=== PATIENT | female | born 1935 | race Caucasian/White ===

== ENCOUNTER → 2017-05-17 | Outpatient (CLI) | payer MEDICARE, OTHER ==
[~2017-05-17] MED LIST: ASP81CT; CHOL40002 PO; CLON0.5T3 PO; CLON1TAB3 PO; CYCL5TAB PO; NAPR-243 PO; NIAC500T6; POTA20TA15; QUIN324C; TRIA1CAP4; TRIA1CAP4 PO; TRM50T PO; TRZ50T
--- NOTE | 2017-05-18 10:36 | Diagnostic Imaging Report ---
INDICATION: Digital mammogram bilateral screening. COMPARISON: This study was compared to the prior exams of 05/03/2016, 04/23/2015, and 04/23/2014. TECHNIQUE: Screening digital mammography was performed bilaterally with a Computer Aided Detection (CAD) system. PERSONAL HISTORY: At this time, there are no current complaints. FINDINGS: There are scattered fibroglandular densities in both breasts which could obscure a lesion. The small area of increased density with the associated macrocalcification in the 12 o'clock position of the right breast seen on the previous study is again visualized and essentially no different. This finding does seem stable when compared to the 2014 exam. There is also an area of architectural distortion in the medial retroareolar region of the left breast. This finding is unchanged when compared to the prior exam as well. There is no primary or secondary sign of malignancy noted. IMPRESSION: There is no evidence for malignancy. ACR BI-RADS Category 1: Negative. Result letter will be mailed to the patient. Note: At least 10% of breast cancer is not imaged by mammography. Dictated by: Dictated on workstation # [id number]
== END ==
LOC: RAD 09:57
PROVIDERS: ATTEND Nurse Practitioner Family
DX: Z12.31 Encounter for screening mammogram for malignant neoplasm of breast (principal)
CPT/HCPCS: 77067

== ENCOUNTER → 2018-02-23 | Outpatient (CLI) | payer MEDICARE, OTHER ==
--- NOTE | 2018-02-23 11:21 | Diagnostic Imaging Report ---
PROCEDURE: CT head without contrast. TECHNIQUE: Multiple contiguous axial images were obtained through the brain without the use of intravenous contrast. INDICATION: Headache and lightheadedness. COMPARISON: No prior studies are available for comparison. FINDINGS: The ventricles and sulci are consistent with the patient's age. There is moderate periventricular hypodensity noted consistent with senescent change. No sulcal effacement is identified. There is no midline shift. No acute intra-axial or extra-axial hemorrhage is detected. Cisterns are patent. The visualized paranasal sinuses are clear. IMPRESSION: Senescent changes. No acute intracranial process is detected. Dictated by: Dictated on workstation # [id number]
== END ==
LOC: RAD 10:48
PROVIDERS: ATTEND Nurse Practitioner Family
DX: R54 Age-related physical debility (principal); R51 Headache; R42 Dizziness and giddiness
CPT/HCPCS: 70450

== ENCOUNTER → 2018-03-26 | Outpatient (CLI) | payer MEDICARE, OTHER ==
[~2018-03-26] MED LIST changes: +GADOBUTROL 7.5 MMOL/7.5 ML (GADAVIST) VIAL IV ONE
--- NOTE | 2018-03-26 09:03 | Diagnostic Imaging Report ---
PROCEDURE: MR imaging of the brain with and without contrast. TECHNIQUE: Multiplanar, multisequence MR imaging of the brain was performed with and without contrast. INDICATION: Confusion and headaches. Patient has history of lung carcinoma. COMPARISON: No prior MRI brain study is available for comparison. FINDINGS: The ventricles and sulci are appropriate for the patient's age. There is moderate periventricular and subcortical white matter signal abnormalities noted consistent with chronic microvascular ischemia and senescent change. No diffusion restriction is identified to suggest acute ischemia. The normal expected flow-voids within the carotid siphons are seen. No acute intra-axial or extra-axial hemorrhage is identified. The corpus callosum is unremarkable. The sella and parasellar structures are unremarkable. No abnormal enhancement is seen following contrast administration. IMPRESSION: Chronic and senescent changes. No acute intracranial process is identified. No enhancing mass or evidence of intracranial metastatic disease is detected. Dictated by: Dictated on workstation # [id number]
== END ==
LOC: RAD 07:29
PROVIDERS: ATTEND Nurse Practitioner Family
DX: R41.0 Disorientation, unspecified (principal); R51 Headache; R53.83 Other fatigue; Z85.118 Personal history of other malignant neoplasm of bronchus and lung
CPT/HCPCS: 70553

== ENCOUNTER → 2018-05-24 | Outpatient (CLI) | payer MEDICARE, OTHER ==
[~2018-05-24] MED LIST changes: -GADOBUTROL 7.5 MMOL/7.5 ML (GADAVIST) VIAL IV ONE
--- NOTE | 2018-05-24 19:32 | Diagnostic Imaging Report ---
INDICATION: Routine screening. COMPARISON: Comparison is made with prior studies from 05/17/2017 and 05/03/2016. TECHNIQUE: 2D and 3D bilateral screening mammography was performed with computer-aided detection (CAD) system. FINDINGS: Scattered fibroglandular densities are identified bilaterally. Numerous benign-appearing parenchymal and vascular calcifications are identified bilaterally. Previously noted nodular density with calcification in the right breast appears fairly stable. Area of architectural distortion in the retroareolar slightly lateral left breast appears stable. No new mass or malignant appearing microcalcifications are seen. Axillae are unremarkable. IMPRESSION: No mammographic features suspicious for malignancy are identified. ACR BI-RADS Category 2: Benign findings. Result letter will be mailed to the patient. Note: At least 10% of breast cancer is not imaged by mammography. Dictated by: Dictated on workstation # [id number]
== END ==
LOC: RAD 10:42
PROVIDERS: ATTEND Nurse Practitioner Family
DX: Z12.31 Encounter for screening mammogram for malignant neoplasm of breast (principal)
CPT/HCPCS: 77067

== ENCOUNTER → 2019-06-19 | Outpatient (CLI) | payer MEDICARE, OTHER ==
--- NOTE | 2019-06-19 12:53 | Diagnostic Imaging Report ---
INDICATION: Routine screening. COMPARISON: 05/24/2018 and 05/17/2017. TECHNIQUE: 2D and 3D bilateral screening mammography was performed with CAD. FINDINGS: Scattered fibroglandular densities are identified bilaterally. The overall breast parenchymal pattern appears stable. Bilateral benign parenchymal and vascular calcifications are stable. No new mass or malignant appearing microcalcifications are seen. The axillae are unremarkable. IMPRESSION: No mammographic features suspicious for malignancy are identified. ACR BI-RADS Category 2: Benign findings. Result letter will be mailed to the patient. Note: At least 10% of breast cancer is not imaged by mammography. Dictated by: Dictated on workstation # [id number]
== END ==
LOC: RAD 08:57
PROVIDERS: ATTEND Nurse Practitioner Family
DX: Z12.31 Encounter for screening mammogram for malignant neoplasm of breast (principal)
CPT/HCPCS: 77067

== ENCOUNTER 2019-11-08 14:04 | Emergency (ER) | payer MEDICARE, OTHER ==
[~2019-11-08] VITALS: Ht 167 cm; Wt 68.0 kg
[~2019-11-08 14:04] MED LIST changes: +ASPI-999 PO; +CHOL20003 PO; +CLON1TAB13 PO; +LEVO500T2 PO; +SULF-222 PO; +VITAMIN PACK PO
--- NOTE | 2019-11-08 14:21 | ED Lower Extremity ---
General Chief Complaint: Lower Extremity Stated Complaint: L LEG PAIN Nursing Triage Note: has LLE pain on the outside and front of her L knee Nursing Sepsis Screen: No Definite Risk Source: patient Exam Limitations: no limitations History of Present Illness Date Seen by Provider: Nov 08, 2019 Time Seen by Provider: 14:19 Initial Comments ER with left anterolateral knee pain. She had a bunch of tests done by her onc ologist yesterday at [place], did a lot of walking. Today she has pain to the left anterior/lateral knee, specifically with twisting movements. She can fully extend and flex the knee without pain. Onset: just prior to arrival Severity: moderate Pain/Injury Location: left knee Method of Injury: unknown Modifying Factors: Worse With Movement Allergies and Home Medications Allergies Coded Allergies: Penicillins (Verified Allergy, Unknown, 07/10/19) Uncoded Allergies: NOVACAINE (Allergy, Mild, 09/07/09) Home Medications Cholecalciferol (Vitamin D3) 2,000 Unit Capsule, 4,000 UNIT PO DAILY, (Reported) Clonazepam 1 Mg Tablet, 0.5 MG PO HS PRN for RESTLESSNESS, (Reported) TAKES 1/2 (1MG) TABLET Levofloxacin 500 Mg Tablet, 500 MG PO DAILY Prescribed by: TERESA ALAMO on 07/11/19 0939 Triamterene/Hydrochlorothiazid 1 Each Capsule, 1 CAP PO DAILY, (Reported) [Vitamin Pack] , 1 PACKET PO DAILY, (Reported) Patient Home Medication List Home Medication List Reviewed: Yes Review of Systems Constitutional: see HPI EENTM: see HPI Respiratory: no symptoms reported Cardiovascular: no symptoms reported Genitourinary: no symptoms reported Musculoskeletal: see HPI Skin: no symptoms reported Psychiatric/Neurological: No Symptoms Reported Past Olqrbjy-Upmtgb-Yzlhub Hx Patient Social History Alcohol Use: Denies Use Recreational Drug Use: No 2nd Hand Smoke Exposure: No Recent Foreign Travel: No Contact w/Someone Who Travel: No Recent Infectious Disease Expo: No Recent Hopitalizations: No Immunizations Up To Date PED Vaccines UTD: No Date of Pneumonia Vaccine: Jul 12, 2011 Date of Influenza Vaccine: Aug 11, 2012 Seasonal Allergies Seasonal Allergies: No Past Medical History Surgeries: Yes Lobectomy Respiratory: Yes Currently Using CPAP: No Currently Using BIPAP: No Cardiac: No Hypertension Neurological: No [employer] History: Menopausal Genitourinary: No UTI-Chronic Gastrointestinal: No Musculoskeletal: Yes Osteoporosis Endocrine: No HEENT: No Loss of Vision: Denies Hearing Impairment: Denies Cancer: Yes Lung Did You Recieve Any Treatments: No What Type of Treatment Did You: Surgical Intervention Psychosocial: No Anxiety Integumentary: No Psoriasis Blood Disorders: No Family Medical History Cardiovascular disease 19 MOTHER Congenital disease 19 FATHER Hypertension Physical Exam Vital Signs Vital Signs - First Documented 11/08/19 14:07 Temp 36.7 Pulse 70 Resp 18 B/P (MAP) 160/85 (110) Capillary Refill : Less Than 3 Seconds Height, Weight, BMI Height: 5'6.00" Weight: 190lbs. oz. [id number]; 24.00 BMI Method:Stated General Appearance: WD/WN, no apparent distress HEENT: PERRL/EOMI, normal ENT inspection Neck: non-tender, full range of motion Respiratory: no respiratory distress, no accessory muscle use Hips: bilateral hip non-tender, bilateral hip normal inspection, bilateral hip normal range of motion Legs: bilateral leg non-tender, bilateral leg normal inspection, bilateral leg normal range of motion Knees: left knee pain, left knee soft tissue tenderness Ankles: bilateral ankle non-tender, bilateral ankle normal inspection, bilatera l ankle normal range of motion Feet: bilateral foot non-tender, bilateral foot normal inspection, bilateral foot normal range of motion Neurologic/Psychiatric: alert, normal mood/affect, oriented x 3 Skin: normal color, warm/dry Progress/Results/Core Measures Results/Orders My Orders Orders - NEENA HUMPHREYS APRN Knee, Left, 3 Views (11/08/19 14:18) Vital Signs/I&O 11/08/19 14:07 Temp 36.7 Pulse 70 Resp 18 B/P (MAP) 160/85 (110) Blood Pressure Mean: 110 Departure Impression Primary Impression: Injury of meniscus of left knee Qualified Codes: S83.8X2A - Sprain of other specified parts of left knee, initial encounter Disposition: 01 HOME, SELF-CARE Condition: Stable Departure-Patient Inst. Decision time for Depature: 14:21 Referrals: TERESA ALAMO MD (PCP/Family) Primary Care Physician Patient Instructions: Internal Derangement of the Knee (DC) Add. Discharge Instructions: 1. Return to ER for any concerns 2. Follow-up with your doctor next week 3. All discharge instructions reviewed with patient and/or family. Voiced understanding. NEENA HUMPHREYS APRN Nov 08, 2019 14:21
--- NOTE | 2019-11-08 14:53 | Diagnostic Imaging Report ---
CLINICAL INDICATION: Patient with knee pain. No known injury. EXAM: X-ray of the left knee, three views. COMPARISON: None. FINDINGS: There is no acute fracture or dislocation. There is a small knee effusion. There are minimal-sized spurs involving the medial and lateral compartments and small spurs involving the patellofemoral compartment. There is mild to moderately hypertrophic spurring involving the patella in the region of the quadriceps attachment. Vascular calcifications are seen posterior to the knee. IMPRESSION: 1: There are [id number] degenerative changes of the left knee. 2: Yedx-an-hmuutzne tricompartmental osteoarthritis. Dictated by: Dictated on workstation # [id number]
[2019-11-08 15:04] VITALS: BP 160/85
== END 2019-11-08 15:14 | disposition home or self-care (01) ==
LOC: EDUNIT# 14:04 → ER 14:05
DX: S89.92XA Unspecified injury of left lower leg, initial encounter (principal); F41.9 Anxiety disorder, unspecified; Z88.0 Allergy status to penicillin; Z88.8 Allergy status to other drugs, medicaments and biological substances; Z85.118 Personal history of other malignant neoplasm of bronchus and lung; Z82.49 Family history of ischemic heart disease and other diseases of the circulatory system; X50.0XXA Overexertion from strenuous movement or load, initial encounter
CPT/HCPCS: 73562

== ENCOUNTER 2020-04-20 22:06 | Inpatient (IN) | payer MEDICARE, OTHER ==
[~2020-04-20] VITALS: Ht 167.7 cm; Wt 77.7 kg
[~2020-04-20 22:06] MED LIST changes: +CEFD300C3 PO; +CHOL100045 PO; +CHOL4PAC PO; +CLON0.5T4 PO; +TURM500C4 PO
[2020-04-20] MEDS ORDERED: NS IV 1000 ML 1,000 ML ONE (22:25)
--- NOTE | 2020-04-20 22:32 | ED General ---
General Chief Complaint: General Problems/Pain Stated Complaint: WEAKNESS Nursing Triage Note: PT BROUGHT IN BY [facility] FROM HOME WITH COMPLINT OF CHILLS AND NOT FEELING WELL. PT WAS D/C YESTERDAY FROM [facility] Nursing Sepsis Screen: No Definite Risk Source of Information: Patient, EMS Exam Limitations: No Limitations (NETTIE MOREIRA STUDENT) History of Present Illness Date Seen by Provider: Apr 20, 2020 Time Seen by Provider: 22:15 Initial Comments Alyson Wong is a 85 year old female seen today due to chills and generalized weakness. She reports her symptoms began several hours ago. Reports she took her typical dose clonazepam before bedtime for restless legs. Denies taking bloodthinners. She reports having SOB, denies having a cough. She was recently released from [facility] 04/20 after being treated for cystitis, was discharged taking cefdinir. Her PCP is Dr. Lacy. Denies any dizziness, light headedness, syncope, falls, CP, palpitations, numbness or tingling, focal weakness.. Timing/Duration: 1-3 Hours Severity: Mild (NETTIE MOREIRA MED STUDENT) Initial Comments Patient is alert, cooperative and says she wants to go home and go back to sleep. EMS reports she is not diabetic and had a normal blood sugar. She was standing up in the bathroom with family when they arrive. Alert and oriented 4. Appropriate. She's had no complaints of pain or weakness for then either. Patient discharged home yesterday. Family noticed a rash on her leg so stopped taking her cefdinir. No mention of starting something new. (EVERARDO OLIVER) Allergies and Home Medications Allergies Coded Allergies: Penicillins (Verified Allergy, Unknown, 07/10/19) Uncoded Allergies: NOVACAINE (Allergy, Mild, 09/07/09) red meat (Allergy, Mild, Vomiting, 04/18/20) Home Medications Cefdinir 300 Mg Capsule, 300 MG PO BID Prescribed by: NEGIN GUAJARDO on 04/19/20 1031 Cholecalciferol (Vitamin D3) 25 Mcg Tablet, 25 MCG PO DAILY, (Reported) Cholestyramine/Aspartame 4 Gm Powd.pack, 4 GM PO DAILY PRN for DIARRHEA Prescribed by: NEGIN GUAJARDO on 04/19/20 1042 Clonazepam 0.5 Mg Tablet, 0.5 MG PO HS PRN for RESTLESSNESS, (Reported) Turmeric/Turmeric Root Extract 1 Each Capsule, 1 EACH PO DAILY, (Reported) [Vitamin Pack] , 1 PACKET PO DAILY, (Reported) Patient Home Medication List Home Medication List Reviewed: Yes (EVERARDO OLIVER) Review of Systems Review of Systems Constitutional: chills; No dizziness, No fever; weakness EENTM: No nose congestion, No throat pain Respiratory: No cough; short of breath Cardiovascular: No chest pain; edema; No palpitations, No syncope Gastrointestinal: No abdominal pain, No constipation, No diarrhea, No nausea, No vomiting Genitourinary: No dysuria; frequency (NETTIE MOREIRA) Psychiatric/Neurological: See HPI; Denies Anxiety, Denies Depressed (EVERARDO OLIVER) All Other Systems Reviewed Negative Unless Noted: Yes (EVERARDO OLIVER) Past Vuracuh-Vfbyte-Ayadnx Hx Patient Social History 2nd Hand Smoke Exposure: No Recent Foreign Travel: No Contact w/Someone Who Travel: No Recent Infectious Disease Expo: No Recent Hopitalizations: No (NETTIE MOREIRA) Alcohol Use: Denies Use Recreational Drug Use: No Smoking Status: Never a Smoker (EVERARDO OLIVER) Immunizations Up To Date PED Vaccines UTD: No Date of Pneumonia Vaccine: Jul 12, 2011 Date of Influenza Vaccine: Aug 11, 2012 (NETTIE MOREIRA) Seasonal Allergies Seasonal Allergies: No (NETTIE MOREIRA) Past Medical History Surgeries: Yes Lobectomy Respiratory: No Currently Using CPAP: No Currently Using BIPAP: No Cardiac: Yes Hypertension Neurological: No 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 Sexually Transmitted Disease: No HIV/AIDS: No Genitourinary: No UTI-Chronic Gastrointestinal: No Musculoskeletal: Yes Osteoporosis, Arthritis Endocrine: No HEENT: No Loss of Vision: Denies Hearing Impairment: Denies Cancer: Yes Lung Did You Recieve Any Treatments: No What Type of Treatment Did You: Surgical Intervention Psychosocial: Yes Anxiety Integumentary: No Psoriasis Blood Disorders: No (NETTIE MOREIRA) Family Medical History Cardiovascular disease 19 MOTHER Congenital disease 19 FATHER Heart Disease, Hypertension (NETTIE MOREIRA) Physical Exam Vital Signs Vital Signs - First Documented 04/20/20 22:10 Pulse 96 Resp 20 B/P (MAP) 113/68 (83) Pulse Ox 90 O2 Delivery Room Air Capillary Refill : Less Than 3 Seconds Height, Weight, BMI Height: 5'6.00" Weight: 190lbs. oz. [id number]; 27.00 BMI Method:Stated General Appearance: No Apparent Distress, Obese HEENT: PERRL/EOMI; No Scleral Icterus (L), No Scleral Icterus (R) Neck: Normal Inspection, Non Tender, Supple Respiratory: Lungs Clear, Normal Breath Sounds, No Accessory Muscle Use, No Respiratory Distress Cardiovascular: Regular Rate, Rhythm, No Gallop, No JVD, Normal Peripheral Pulses, Systolic Murmur Extremity: Pedal Edema (3+), Other (tenderness to palpation for tibial edema) Neurologic/Psychiatric: Alert, Oriented x3, Normal Mood/Affect; No EOM Palsy, No Facial Droop, No Sensory Deficit Skin: Normal Color, Warm/Dry (NETTIE MOREIRA MED STUDENT) Vital Signs Vital Signs - First Documented 04/20/20 22:10 Pulse 96 Resp 20 B/P (MAP) 113/68 (83) Pulse Ox 90 O2 Delivery Room Air (EVERARDO OLIVER) Focused Exam Sepsis Stage: Sepsis Possible Source: Genitouriary Lactate Level 04/20/20 23:00: Lactic Acid Level 1.52 (EVERARDO OLIVER) Time of Focused Exam: 23:49 Respiratory: Lungs Clear, Normal Breath Sounds, No Accessory Muscle Use, No Respiratory Distress Cardiovascular: Regular Rate, Rhythm, No Edema, Normal Peripheral Pulses Capillary Refill: Less Than 3 Seconds Peripheral Pulses: 2+ Radial Pulses (R), 2+ Radial Pulses (L) Skin: normal color, warm/dry Lactic Acid Level Laboratory Tests Test 04/20/20 23:00 Lactic Acid Level 1.52 MMOL/L (0.50-2.00) (EVERARDO OLIVER) Within 3hrs of presentation: Admin fluids, Admin ABX, Blood cultures prior to ABX's, Focus exam, Lactate level (EVERARDO OLIVER) Progress/Results/Core Measures Suspected Sepsis Recent Fever Within 48 Hours: No Infection Criteria Present: None New/Unexplained Altered Menta: No Sepsis Screen: No Definite Risk SIRS Temperature: Pulse: 96 Respiratory Rate: 20 Laboratory Tests 04/20/20 22:20: White Blood Count 6.3 Blood Pressure 113 /68 Mean: 83 Laboratory Tests 04/20/20 22:20: Platelet Count 143, Total Bilirubin 1.9H (ENTTIE MOREIRA MED STUDENT) SIRS Laboratory Tests 04/20/20 22:20: White Blood Count 6.3 04/20/20 23:00: Lactic Acid Level 1.52 Laboratory Tests 04/20/20 22:20: Creatinine 0.56L, INR Comment 1.0, Platelet Count 143, Total Bilirubin 1.9H (EVERARDO OLIVER) Results/Orders Lab Results Laboratory Tests Test 04/20/20 22:20 Range/Units White Blood Count 6.3 4.3-11.0 10^3/uL Red Blood Count 3.61 L 4.35-5.85 10^6/uL Hemoglobin 11.7 11.5-16.0 G/DL Hematocrit 34 L 35-52 % Mean Corpuscular Volume 94 80-99 FL Mean Corpuscular Hemoglobin 32 25-34 PG Mean Corpuscular Hemoglobin Concent 34 32-36 G/DL Red Cell Distribution Width 13.6 10.0-14.5 % Platelet Count 143 130-400 10^3/uL Mean Platelet Volume 10.9 H 7.4-10.4 FL Neutrophils (%) (Auto) 93 H 42-75 % Lymphocytes (%) (Auto) 2 L 12-44 % Monocytes (%) (Auto) 4 0-12 % Eosinophils (%) (Auto) 2 0-10 % Basophils (%) (Auto) 0 0-10 % Neutrophils # (Auto) 5.9 1.8-7.8 X 10^3 Lymphocytes # (Auto) 0.1 L 1.0-4.0 X 10^3 Monocytes # (Auto) 0.2 0.0-1.0 X 10^3 Eosinophils # (Auto) 0.1 0.0-0.3 10^3/uL Basophils # (Auto) 0.0 0.0-0.1 10^3/uL Sodium Level 139 135-145 MMOL/L Potassium Level 3.3 L 3.6-5.0 MMOL/L Chloride Level 105 98-107 MMOL/L Carbon Dioxide Level 26 21-32 MMOL/L Anion Gap 8 5-14 MMOL/L Glucose Level 106 H 70-105 MG/DL Calcium Level 8.4 L 8.5-10.1 MG/DL Corrected Calcium 9.4 8.5-10.1 MG/DL Total Bilirubin 1.9 H 0.1-1.0 MG/DL Total Protein 5.0 L 6.4-8.2 GM/DL Albumin 2.8 L 3.2-4.5 GM/DL Medications Given in ED Current Medications Medications Dose Ordered Sig/Kenzie Route Start Time Stop Time Status Last Admin Dose Admin Sodium Chloride 1,000 ml @ ud STK-MED ONCE .ROUTE 04/20/20 22:25 04/20/20 22:29 DC 04/20/20 22:30 1,000 MLS/HR Vital Signs/I&O 04/20/20 22:10 Pulse 96 Resp 20 B/P (MAP) 113/68 (83) Pulse Ox 90 O2 Delivery Room Air Capillary Refill : Less Than 3 Seconds Blood Pressure Mean: 83 (NETTIE MOREIRA STUDENT) Lab Results Laboratory Tests Test 04/20/20 22:20 04/20/20 22:52 04/20/20 23:00 Range/Units White Blood Count 6.3 4.3-11.0 10^3/uL Red Blood Count 3.61 L 4.35-5.85 10^6/uL Hemoglobin 11.7 11.5-16.0 G/DL Hematocrit 34 L 35-52 % Mean Corpuscular Volume 94 80-99 FL Mean Corpuscular Hemoglobin 32 25-34 PG Mean Corpuscular Hemoglobin Concent 34 32-36 G/DL Red Cell Distribution Width 13.6 10.0-14.5 % Platelet Count 143 130-400 10^3/uL Mean Platelet Volume 10.9 H 7.4-10.4 FL Neutrophils (%) (Auto) 93 H 42-75 % Lymphocytes (%) (Auto) 2 L 12-44 % Monocytes (%) (Auto) 4 0-12 % Eosinophils (%) (Auto) 2 0-10 % Basophils (%) (Auto) 0 0-10 % Neutrophils # (Auto) 5.9 1.8-7.8 X 10^3 Lymphocytes # (Auto) 0.1 L 1.0-4.0 X 10^3 Monocytes # (Auto) 0.2 0.0-1.0 X 10^3 Eosinophils # (Auto) 0.1 0.0-0.3 10^3/uL Basophils # (Auto) 0.0 0.0-0.1 10^3/uL Neutrophils % (Manual) 91 % Lymphocytes % (Manual) 3 % Monocytes % (Manual) 5 % Eosinophils % (Manual) 1 % Blood Morphology Comment NORMAL Prothrombin Time 13.4 12.2-14.7 SEC INR Comment 1.0 0.8-1.4 Activated Partial Thromboplast Time 32 24-35 SEC Sodium Level 139 135-145 MMOL/L Potassium Level 3.3 L 3.6-5.0 MMOL/L Chloride Level 105 98-107 MMOL/L Carbon Dioxide Level 26 21-32 MMOL/L Anion Gap 8 5-14 MMOL/L Blood Urea Nitrogen 9 7-18 MG/DL Creatinine 0.56 L 0.60-1.30 MG/DL Estimat Glomerular Filtration Rate > 60 BUN/Creatinine Ratio 16 Glucose Level 106 H 70-105 MG/DL Calcium Level 8.4 L 8.5-10.1 MG/DL Corrected Calcium 9.4 8.5-10.1 MG/DL Magnesium Level 1.6 1.6-2.4 MG/DL Total Bilirubin 1.9 H 0.1-1.0 MG/DL Aspartate Amino Transf (AST/SGOT) 41 H 5-34 U/L Alanine Aminotransferase (ALT/SGPT) 62 H 0-55 U/L Alkaline Phosphatase 242 H 40-136 U/L Total Protein 5.0 L 6.4-8.2 GM/DL Albumin 2.8 L 3.2-4.5 GM/DL Urine Color YELLOW Urine Clarity CLEAR Urine pH 6.5 5-9 Urine Specific Dora 1.010 L 1.016-1.022 Urine Protein NEGATIVE NEGATIVE Urine Glucose (UA) NEGATIVE NEGATIVE Urine Ketones TRACE H NEGATIVE Urine Nitrite NEGATIVE NEGATIVE Urine Bilirubin NEGATIVE NEGATIVE Urine Urobilinogen 0.2 < = 1.0 MG/DL Urine Leukocyte Esterase NEGATIVE NEGATIVE Urine RBC (Auto) TRACE-I NEGATIVE Urine RBC 5-10 H /HPF Urine WBC 5-10 H /HPF Urine Squamous Epithelial Cells 10-25 H /HPF Urine Crystals NONE /LPF Urine Bacteria TRACE /HPF Urine Casts NONE /LPF Urine Mucus NEGATIVE /LPF Urine Culture Indicated CULTURE PENDING Lactic Acid Level 1.52 0.50-2.00 MMOL/L My Orders Orders - EVERARDO OLIVER Cbc With Automated Diff (04/20/20 22:18) Comprehensive Metabolic Panel (04/20/20 22:18) Ed Iv/Invasive Line Start (04/20/20 22:18) Ns Iv 1000 Ml (Sodium Chloride 0.9%) (04/20/20 22:25) Manual Differential (04/20/20:20) Acetaminophen Tablet/Caplet (Tylenol T (04/20/20 23:00) Blood Culture (04/20/20 22:49) Urinalysis (04/20/20 22:49) Urine Culture (04/20/20 22:49) Protime With Inr (04/20/20 22:49) Partial Thromboplastin Time (04/20/20 22:49) Chest 1 View, Ap/Pa Only (04/20/20 22:49) Ed Iv/Invasive Line Start (04/20/20 22:49) Ed Iv/Invasive Line Start (04/20/20 22:49) Vital Signs Adult Sepsis Patie Q15M (04/20/20 22:49) O2 (04/20/20 22:49) Remove Rings In Anticipation O (04/20/20 22:49) Lactic Acid Analyzer (04/20/20 22:49) Ns Iv 1000 Ml (Sodium Chloride 0.9%) (04/20/20 22:49) Ed Iv/Invasive Line Start (04/20/20 22:49) Ns Iv 500 Ml (Sodium Chloride 0.9%) (04/20/20 22:49) Comprehensive Metabolic Panel (04/20/20 22:49) Ed Iv/Invasive Line Start (04/20/20 22:49) Ed Iv/Invasive Line Start (04/20/20 22:49) Vital Signs Adult Sepsis Patie Q15M (04/20/20 22:49) O2 (04/20/20 22:49) Remove Rings In Anticipation O (04/20/20 22:49) Gentamicin (Adult) Injection (Garamycin (04/20/20 22:54) Levofloxacin 500 Mg/100 Ml Iv (Levaquin (04/20/20 23:00) Magnesium (04/20/20 22:57) Magnesium (04/20/20 22:20) Medications Given in ED Current Medications Medications Dose Ordered Sig/Kenzie Route Start Time Stop Time Status Last Admin Dose Admin Acetaminophen 650 mg ONCE ONCE PO 04/20/20 23:00 04/20/20 23:01 DC 04/20/20 23:04 650 MG Levofloxacin/ Dextrose 100 ml @ 100 mls/hr ONCE ONCE IV 04/20/20 23:00 04/20/20 23:59 04/20/20 23:32 100 MLS/HR Sodium Chloride 500 ml @ 0 mls/hr Q0M ONCE IV 04/20/20 22:49 04/20/20 22:54 DC 04/20/20 23:04 0 MLS/HR Sodium Chloride 1,000 ml @ ud STK-MED ONCE .ROUTE 04/20/20 22:25 04/20/20 22:29 DC 04/20/20 22:30 1,000 MLS/HR Vital Signs/I&O 04/20/20 22:10 Pulse 96 Resp 20 B/P (MAP) 113/68 (83) Pulse Ox 90 O2 Delivery Room Air (EVERARDO OLIVER) Progress Note #1: Time: 22:45 Progress Note Patient presents with fever 102.5, hypotension with a map around 60-65 mmHg and no tachycardia. Her giving her 30 mL/kg fluid bolus and obtain a septic workup. Since she stopped taking the cefdinir related to a rash were going to avoid cephalosporins and penicillins and gave her Levaquin and gentamicin for suspected UTI resistant to outpatient therapy. I attest that I saw this patient alongside the medical student and agree with his documented history, physical exam and review of systems except as otherwise noted. Progress Note #2: Time: 23:35 Progress Note Patient has not included her IV fluids and her blood pressure is 115/60. Map of 80. She is responding well to fluids and is not septic shock. Elevated bilirubin of uncertain significance. Plan to put her upstairs for sepsis most likely UTI. (EVERARDO OLIVER) Diagnostic Imaging Diagonstic Imaging: Xray Plain Films/CT/US/NM/MRI: chest (1v) Comments No acute cardio pulmonary processes. Reviewed: Reviewed by Me (EVERARDO OLIVER) Departure Communication (Admissions) Time/Spoke to Admitting Phy: 23:35 Discussed the case with Dr. Merino and she agrees with placement in cardiac stepdown on antibiotics and fluids. (EVERARDO OLIVER) Impression Primary Impression: UTI (urinary tract infection) Qualified Codes: N30.00 - Acute cystitis without hematuria Additional Impression: Sepsis Qualified Codes: A41.9 - Sepsis, unspecified organism Disposition: ADMITTED INPATIENT Condition: Stable Admissions Decision to Admit Reason: Admit from ER (General) Decision to Admit/Date: Apr 20, 2020 Time/Decision to Admit Time: 23:00 (EVERARDO OLIVER) Departure-Patient Inst. Referrals: TERESA LACY MD (PCP/Family) Primary Care Physician NETTIE MOREIRA MED STUDENT Apr 20, 2020 22:32 EVERARDO OLIVER Apr 20, 2020 22:47
[2020-04-20 22:41] LABS: BASOPHILS % (AUTO) 0 % (0-10); EOSINOPHILS # (AUTO) 0.1 10^3/uL (0.0-0.3); EOSINOPHILS % (AUTO) 2 % (0-10); HEMATOCRIT 34 % (35-52); HEMOGLOBIN 11.7 G/DL (11.5-16.0); LYMPHOCYTES # (AUTO) 0.1 X 10^3 (1.0-4.0); LYMPHOCYTES % (AUTO) 2 % (12-44); MEAN CORPUSCULAR HEMOGLOBIN 32 PG (25-34); MEAN CORPUSCULAR HGB CONC 34 G/DL (32-36); MEAN CORPUSCULAR VOLUME 94 FL (80-99); MEAN PLATELET VOLUME 10.9 FL (7.4-10.4); MONOCYTES # (AUTO) 0.2 X 10^3 (0.0-1.0); MONOCYTES % (AUTO) 4 % (0-12); NEUTROPHILS # (AUTO) 5.9 X 10^3 (1.8-7.8); NEUTROPHILS % (AUTO) 93 % (42-75); PLATELET COUNT 143 10^3/uL (130-400); RED CELL DISTRIBUTION WIDTH 13.6 % (10.0-14.5); WHITE BLOOD COUNT 6.3 10^3/uL (4.3-11.0)
[2020-04-20] MEDS ORDERED: NS IV 500 ML 500 ML IV ONE (22:49)
[2020-04-20] MEDS ORDERED: NS IV 1000 ML 1,000 ML IV SCH (22:49)
[2020-04-20] MEDS ORDERED: D5W IV STA (22:54)
[2020-04-20] MEDS ORDERED: GENTAMICIN IV STA (22:54)
[2020-04-20 22:56] LABS: ALBUMIN 2.8 GM/DL (3.2-4.5); CHLORIDE 105 MMOL/L (98-107); POTASSIUM 3.3 MMOL/L (3.6-5.0); SODIUM 139 MMOL/L (135-145)
[2020-04-20 22:57] LABS: CALCIUM 8.4 MG/DL (8.5-10.1)
[2020-04-20 22:58] LABS: GLUCOSE 106 MG/DL (70-105)
[2020-04-20 22:59] LABS: CARBON DIOXIDE 26 MMOL/L (21-32)
[2020-04-20 23:00] LABS: BILIRUBIN,TOTAL 1.9 MG/DL (0.1-1.0)
[2020-04-20] MEDS ORDERED: LEVOFLOXACIN 500 MG/100 ML IV 100 ML IV ONE (23:00)
[2020-04-20] MEDS ORDERED: ACETAMINOPHEN 325 MG TABLET PO ONE (23:00)
[2020-04-20 23:02] LABS: ALKALINE PHOSPHATASE 242 U/L (40-136); CREATININE SERUM 0.56 MG/DL (0.60-1.30); GFR ESTIMATED > 60
[2020-04-20 23:03] LABS: BUN/CREATININE RATIO 16
[2020-04-20 23:05] LABS: ALANINE AMINOTRANSFERASE 62 U/L (0-55)
[2020-04-20 23:06] LABS: BILIRUBIN,URINE NEGATIVE (NEGATIVE); CLARITY,URINE CLEAR; COLOR,URINE YELLOW; GLUCOSE, URINE (UA) NEGATIVE (NEGATIVE); KETONES,URINE TRACE (NEGATIVE); LEUKOCYTE ESTERASE ,URINE NEGATIVE (NEGATIVE); NITRITE,URINE NEGATIVE (NEGATIVE); PH,URINE 6.5 (5-9); PROTEIN,URINE NEGATIVE (NEGATIVE)
[2020-04-20 23:11] LABS: MAGNESIUM 1.6 MG/DL (1.6-2.4); PROTHROMBIN TIME PATIENT 13.4 SEC (12.2-14.7)
--- NOTE | 2020-04-20 23:15 | NUR ---
CALLED PT'S WITH PT'S CONSENT INFORMED HIM OF PLANNED ADMISSION TO HOSPITAL.
[2020-04-20 23:17] LABS: BACTERIA,URINE TRACE /HPF
[2020-04-20 23:22] LABS: EOSINOPHILS % (MANUAL) 1 %; LYMPHOCYTES % (MANUAL) 3 %; MONOCYTES % (MANUAL) 5 %; NEUTROPHILS % (MANUAL) 91 %; RBC MORPH NORMAL
[2020-04-21] VITALS (21 sets, daily range): BP systolic 95–152; BP diastolic 57–91
--- OUTSIDE RECORDS SUMMARY | 2020-04-21 00:09 | XMS REPORT | Continuity of Care Document ---
Demographics Preferred Language Unknown Marital Status Unknown Ep[employer]opalian Affiliation Unknown Race Unknown Ethnic Group Unknown Author Organization Unknown Address Unknown Phone Unavailable Allergies Active Description Code Type Severity Reaction Onset Reported/Identified Relationship to Patient Clinical Status Yes NOVACAINE NOVACAINE Mild N/A 09/07/2009 Yes Penicillins [id number] Drug Aller gy Unknown N/A 07/10/2019 Yes red meat red meat Mild Vomiting 04/18/2020 Medications There is no data. Problems Date Dx Coded Attending Type Code Diagnosis Diagnosed By 10/01/2009 Ot 518.89 08/23/2012 Ot 846.0 SPRA IN LUMBOSACRAL 08/23/2012 Ot 924.01 CON TUSION OF HIP 08/23/2012 Ot 959.19 OTH INJURY OF OTHER SITES OF TRUNK 08/23/2012 Ot E000.8 OTH ER EXTERNAL CAUSE STATUS 08/23/2012 Ot E849.6 ACC IDENT IN PUBLIC BLDG 08/23/2012 Ot E880.9 FAL L ON STAIR/STEP NEC 08/30/2012 Ot 560.32 FEC AL IMPACTION 08/13/2014 Ot 518.89 08/13/2014 Ot 786.2 08/13/2014 Ot 518.89 08/13/2014 Ot V76.12 08/13/2014 Ot 518.89 08/13/2014 Ot V76.12 08/13/2014 Ot 209.21 08/13/2014 Ot 440.0 08/13/2014 Ot 162.9 08/13/2014 Ot 599.0 08/13/2014 Ot 459.89 08/13/2014 Ot 729.5 08/13/2014 Ot 782.3 08/13/2014 Ot 785.9 08/13/2014 Ot V76.12 08/13/2014 Ot 209.61 08/13/2014 Ot 719.45 08/13/2014 Ot 722.52 08/13/2014 Ot 733.90 08/13/2014 Ot 805.2 08/13/2014 Ot E000.8 08/13/2014 Ot E849.6 08/13/2014 Ot E888.9 08/13/2014 Ot 724.02 08/13/2014 Ot 805.2 08/13/2014 Ot E000.8 08/13/2014 Ot E928.9 08/13/2014 Ot 209.61 08/13/2014 LIONEL PAZ, JUSTIN Mcqueen Ot 721.3 08/13/2014 KEISHA PAZ, OLIVIA Ot 209.61 08/13/2014 KEISHA PAZ, OLIVIA Ot 259.2 08/13/2014 LIONEL PAZ, JUSTIN Mcqueen Ot V76.12 08/13/2014 KEISHA PAZ, OLIVIA Ot 209.61 08/13/2014 LIONEL PAZ, JUSTIN M Ot 789.01 08/13/2014 LIONEL PAZ, JUSTIN Mcqueen Ot V76.12 09/09/2014 LIONEL PAZ, JUSTIN Mcqueen Ot 786.07 09/09/2014 LIONEL PAZ, JUSTIN M Ot 786.2 09/09/2014 LIONEL PAZ, JUSTIN M Ot V10.91 10/11/2014 KEISHA PAZ, OLIVIA Ot 209.61 10/11/2014 KEISHA PAZ, OLIVIA Ot 288.51 10/20/2014 EKISHA PAZ, OLIVIA Ot 209.61 10/20/2014 KEISHA PAZ, OLIVIA Ot 288.51 03/18/2015 REGINO PAZ, TERESA Lindsay Ot 724.00 03/18/2015 REGINO PAZ, TERESA Lindsay Ot 789.00 03/20/2015 REGINO PAZ, TERESA A Ot 724.00 03/20/2015 REGINO PAZ, TERESA Lindsay Ot 789.00 04/08/2015 ALANNAH VELASQUEZ MD Ot 401.9 HYPERTENSION NOS 04/08/2015 ALANNAH VELASQUEZ MD Ot 455.0 INT HEMORRHOID W/O COMPL 04/08/2015 ALANNAH VELASQUEZ MD Ot 455.3 EXT HEMORRHOID W/O COMPL 04/08/2015 ALANNAH VELASQUEZ MD Ot 621.0 POLYP OF CORPUS UTERI 04/08/2015 ALANNAH VELASQUEZ MD Ot 729.1 MYALGIA AND MYOSITIS NOS 04/08/2015 ALANNAH VELASQUEZ MD Ot V58.66 LONG-TERM (CURRENT) USE OF ASPIRIN 04/08/2015 ALANNAH VELASQUEZ MD, Ot V58.69 OTH MED,LT,CURRENT USE 04/08/2015 ALANNAH VELASQUEZ MD Ot V76.51 SCREEN MAL NEOP-COLON 04/23/2015 Ot V76.12 04/23/2015 Ot 518.89 04/23/2015 Ot V76.12 04/23/2015 Ot 209.21 04/23/2015 Ot 440.0 04/23/2015 Ot 162.9 04/23/2015 Ot 599.0 04/23/2015 Ot 459.89 04/23/2015 Ot 729.5 04/23/2015 Ot 782.3 04/23/2015 Ot 785.9 04/23/2015 Ot V76.12 04/23/2015 Ot 209.61 04/23/2015 Ot 719.45 04/23/2015 Ot 722.52 04/23/2015 Ot 733.90 04/23/2015 Ot 805.2 04/23/2015 Ot E000.8 04/23/2015 Ot E849.6 04/23/2015 Ot E888.9 04/23/2015 Ot 724.02 04/23/2015 Ot 805.2 04/23/2015 Ot E000.8 04/23/2015 Ot E928.9 04/23/2015 Ot 209.61 04/23/2015 LIONEL PAZ, JUSTIN Mcqueen Ot 721.3 04/23/2015 KEISHA PAZ, OLIVIA Ot 209.61 04/23/2015 KEISHA PAZ, OLIVIA Ot 259.2 04/23/2015 LIONEL PAZ, JUSTIN Mcqueen Ot V76.12 04/23/2015 KEISHA PAZ, OLIVIA Ot 209.61 04/23/2015 LIONEL PAZ, JUSTIN Mcqueen Ot 789.01 04/23/2015 LIONEL PAZ, JUSTIN Mcqueen Ot 786.07 04/23/2015 LIONEL PAZ, JUSTIN Mcqueen Ot 786.2 04/23/2015 LIONEL PAZ, JUSTIN Mcqueen Ot V10.91 04/23/2015 LIONEL PAZ, JUSTIN Mcqueen Ot V76.12 04/23/2015 KEISHA PAZ, OLIVIA Ot 209.61 04/23/2015 KEISHA PAZ, OLIVIA Ot 288.51 04/23/2015 REGINO PAZ, TERESA Lindsay Ot 724.00 04/23/2015 REGINO PAZ, TERESA Lindsay Ot 789.00 04/29/2015 MIRLANDE DUNLAP Ot V76.12 05/13/2015 HERBIEMIRLANDE EDGER MACHINE OPERATOR Ot V76.12 05/03/2016 HERBIE MIRLANDE Mcqueen EDGER MACHINE OPERATOR Ot Z12.31 ENCNTR SCREEN MAMMOGRAM FOR MALIGNANT NE 05/04/2016 MIRLANDE DUNLAP EDGER MACHINE OPERATOR Ot Z12.31 ENCNTR SCREEN MAMMOGRAM FOR MALIGNANT NE 05/04/2016 OPHELIA DUNLAPIE Charisse EDGER MACHINE OPERATOR Ot Z12.31 ENCNTR SCREEN MAMMOGRAM FOR MALIGNANT NE 05/11/2016 DUNLAPOPHELIAIE Charisse EDGER MACHINE OPERATOR Ot Z12.31 ENCNTR SCREEN MAMMOGRAM FOR MALIGNANT NE 05/27/2016 MIRLANDE DUNLAP EDGER MACHINE OPERATOR Ot Z12.31 ENCNTR SCREEN MAMMOGRAM FOR MALIGNANT NE 05/17/2017 Ot 599.0 URIN TRACT INFECTION NOS 05/17/2017 Ot 459.89 CIR CULATORY DISEASE NEC 05/17/2017 Ot 729.5 PAIN IN LIMB 05/17/2017 Ot 782.3 EDEMA 05/17/2017 Ot 785.9 CARD IOVAS SYS SYMP NEC 05/17/2017 Ot V76.12 OTH SCREEN MAMMO- MALIGN NEOPLASM OF ABELARDO 05/17/2017 Ot 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 05/17/2017 Ot 719.45 MINI NT PAIN-PELVIS 05/17/2017 Ot 722.52 LUM B/LUMBOSAC DISC DEGEN 05/17/2017 Ot 733.90 BON E CARTILAGE DIS NOS 05/17/2017 Ot 805.2 FX D ORSAL VERTEBRA-CLOSE 05/17/2017 Ot E000.8 OTH ER EXTERNAL CAUSE STATUS 05/17/2017 Ot E849.6 ACC IDENT IN PUBLIC BLDG 05/17/2017 Ot E888.9 FAL L NOS 05/17/2017 Ot 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, LUMBAR REG, W/OUT NEURO 05/17/2017 Ot 805.2 FX D ORSAL VERTEBRA-CLOSE 05/17/2017 Ot E000.8 OTH ER EXTERNAL CAUSE STATUS 05/17/2017 Ot E928.9 ACC IDENT NOS 05/17/2017 Ot 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 05/17/2017 LIONEL PAZ, JUSTIN Mcqueen Ot 721.3 LUMBOSACRAL SPONDYLOSIS 05/17/2017 OLIVIA VALDES MD Ot 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 05/17/2017 OLIVIA VALDES MD Ot 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 05/17/2017 JUSTIN FLOWERS MD, Ot V76.12 OTH SCREEN MAMMO-MALIGN NEOPLASM OF ABELARDO 05/17/2017 OLIVIA VALDES MD Ot 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 05/17/2017 JUSTIN FLOWERS MD Ot 789.01 ABDOMINAL PAIN, RIGHT UPPER QUADRANT 05/17/2017 JUSTIN FLOWERS MD Ot 786.07 WHEEZING 05/17/2017 JUSTIN FLOWERS MD Ot 786.2 COUGH 05/17/2017 JUSTIN FLOWERS MD Ot V10.91 PERSONAL HISTORY OF MALIGNANT NEUROENDOC 05/17/2017 JUSTIN FLOWERS MD, Ot V76.12 OTH SCREEN MAMMO-MALIGN NEOPLASM OF ABELARDO 05/17/2017 OLIVIA VALDES MD Ot 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 05/17/2017 OLIVIA VALDES MD Ot 288.51 LYMPHOCYTOPENIA 05/17/2017 TERESA ALAMO MD Ot 724.00 SPINAL STENOSIS NOS 05/17/2017 TERESA ALAMO MD Ot 789.00 ABDOMINAL PAIN, UNSPECIFIED SITE 05/17/2017 MIRLANDE DUNLAP Ot V76.12 OTH SCREEN MAMMO-MALIGN NEOPLASM OF ABELARDO 05/17/2017 MIRLANDE DUNLAP Ot Z12.31 ENCNTR SCREEN MAMMOGRAM FOR MALIGNANT NE 05/17/2017 MONIQUE TOTH CUSTOMS INSPECTOR Ot Z12.31 ENCNTR SCREEN MAMMOGRAM FOR MALIGNANT NE 05/18/2017 MONIQUE TOTH CUSTOMS INSPECTOR Ot Z12.31 ENCNTR SCREEN MAMMOGRAM FOR MALIGNANT NE 06/07/2017 MONIQUE TOTH CUSTOMS INSPECTOR Ot Z12.31 ENCNTR SCREEN MAMMOGRAM FOR MALIGNANT NE 02/26/2018 MONIQUE TOTH CUSTOMS INSPECTOR Ot R4 2 DIZZINESS AND GIDDINESS 02/26/2018 MONIQUE TOTH CUSTOMS INSPECTOR Ot R5 1 HEADACHE 02/26/2018 MONIQUE TOTH CUSTOMS INSPECTOR Ot R5 4 AGE-RELATED PHYSICAL DEBILITY 03/19/2018 MONIQUE TOTH CUSTOMS INSPECTOR Ot R4 2 DIZZINESS AND GIDDINESS 03/19/2018 MONIQUE TOTH CUSTOMS INSPECTOR Ot R5 1 HEADACHE 03/19/2018 MONIQUE TOTH CUSTOMS INSPECTOR Ot R5 4 AGE-RELATED PHYSICAL DEBILITY 03/20/2018 NAVNEETMONIQUE Charisse CUSTOMS INSPECTOR Ot R4 2 DIZZINESS AND GIDDINESS 03/20/2018 NAVNEETMONIQUE Charisse CUSTOMS INSPECTOR Ot R5 1 HEADACHE 03/20/2018 NAVNEETMONIQUE Charisse CUSTOMS INSPECTOR Ot R5 4 AGE-RELATED PHYSICAL DEBILITY 03/26/2018 Ot 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 03/26/2018 JUSTIN FLOWERS MD Ot 721.3 LUMBOSACRAL SPONDYLOSIS 03/26/2018 OLIVIA VALDES MD Ot 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 03/26/2018 OLIVIA VALDES MD Ot 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 03/26/2018 JUSTIN FLOWERS MD, Ot V76.12 OTH SCREEN MAMMO-MALIGN NEOPLASM OF ABELARDO 03/26/2018 OLIVIA VALDES MD Ot 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 03/26/2018 JUSTIN FLOWERS MD Ot 789.01 ABDOMINAL PAIN, RIGHT UPPER QUADRANT 03/26/2018 JUSTIN FLOWERS MD Ot 786.07 WHEEZING 03/26/2018 JUSTIN FLOWERS MD Ot 786.2 COUGH 03/26/2018 JUSTIN FLOWERS MD Ot V10.91 PERSONAL HISTORY OF MALIGNANT NEUROENDOC 03/26/2018 JUSTIN FLOWERS MD Ot V76.12 OTH SCREEN MAMMO-MALIGN NEOPLASM OF ABELARDO 03/26/2018 OLIVIA VALDES MD Ot 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 03/26/2018 OLIVIA VALDES MD Ot 288.51 LYMPHOCYTOPENIA 03/26/2018 TERESA ALAMO MD Ot 724.00 SPINAL STENOSIS NOS 03/26/2018 TERESA ALAMO MD Ot 789.00 ABDOMINAL PAIN, UNSPECIFIED SITE 03/26/2018 MIRLANDE DUNLAP Ot V76.12 OTH SCREEN MAMMO-MALIGN NEOPLASM OF ABELARDO 03/26/2018 MIRLANDE DUNLAP Ot Z12.31 ENCNTR SCREEN MAMMOGRAM FOR MALIGNANT NE 03/26/2018 MONIQUE TOTH APRN Ot Z12.31 ENCNTR SCREEN MAMMOGRAM FOR MALIGNANT NE 03/26/2018 MONIQUE TOTH CUSTOMS INSPECTOR Ot R4 2 DIZZINESS AND GIDDINESS 03/26/2018 MONIQUE TOTH CUSTOMS INSPECTOR Ot R5 1 HEADACHE 03/26/2018 MONIQUE TOTH CUSTOMS INSPECTOR Ot R5 4 AGE-RELATED PHYSICAL DEBILITY 03/27/2018 MONIQUE TOTH CUSTOMS INSPECTOR Ot R41.0 DISORIENTATION, UNSPECIFIED 03/27/2018 MONIQUE TOTH CUSTOMS INSPECTOR Ot R5 1 HEADACHE 03/27/2018 MONIQUE TOTH CUSTOMS INSPECTOR Ot R53.83 OTHER FATIGUE 03/27/2018 MONIQUE TOTH CUSTOMS INSPECTOR Ot Z85.118 PERSONAL HISTORY OF MALIGNANT NEOPLASM O 05/16/2018 MONIQUE TOTH CUSTOMS INSPECTOR Ot Z12.31 ENCNTR SCREEN MAMMOGRAM FOR MALIGNANT NE 05/25/2018 MONIQUE TOTH APRN Ot Z12.31 ENCNTR SCREEN MAMMOGRAM FOR MALIGNANT NE 06/13/2018 MONIQUE TOTH APRN Ot Z12.31 ENCNTR SCREEN MAMMOGRAM FOR MALIGNANT NE 10/05/2018 W 724.5 BACK ACHE, UNSPECIFIED 10/05/2018 W 780.79 OTH ER MALAISE AND FATIGUE 10/05/2018 W M54.9 DORS ALGIA, UNSPECIFIED 10/05/2018 W R53.1 WEAK NESS 10/19/2018 W 724.5 BACK ACHE, UNSPECIFIED 10/19/2018 W 780.79 OTH ER MALAISE AND FATIGUE 10/19/2018 W M54.9 DORS ALGIA, UNSPECIFIED 10/19/2018 W R53.1 WEAK NESS 06/18/2019 MONIQUE TOTH APRN Ot Z12.31 ENCNTR SCREEN MAMMOGRAM FOR MALIGNANT NE 07/11/2019 REGINO PAZ, TERESA Lindsay Ot F41.9 ANXIETY DISORDER, UNSPECIFIED 07/11/2019 REGINO PAZ, TERESA Lindsay Ot G89.29 OTHER CHRONIC PAIN 07/11/2019 TERESA ALAMO MD Ot J06.9 ACUTE UPPER RESPIRATORY INFECTION, UNSPE 07/11/2019 TERESA ALAMO MD Ot M54.9 DORSALGIA, UNSPECIFIED 07/11/2019 TERESA ALAMO MD Ot N39.0 URINARY TRACT INFECTION, SITE NOT SPECIF 07/11/2019 TERESA ALAMO MD Ot R06.02 SHORTNESS OF BREATH 07/11/2019 TERESA ALAMO MD Ot Z79.899 OTHER MANUFACTURING RECRUITER (CURRENT) DRUG THERAPY 07/11/2019 TERESA ALAMO MD Ot Z88.0 ALLERGY STATUS TO PENICILLIN 07/11/2019 TERESA ALAMO MD Ot Z88.1 ALLERGY STATUS TO OTHER ANTIBIOTIC AGENT 07/11/2019 TERESA ALAMO MD Ot 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] 07/16/2019 TERESA ALAMO MD Ot F41.9 ANXIETY DISORDER, UNSPECIFIED 07/16/2019 TERESA ALAMO MD Ot G89.29 OTHER CHRONIC PAIN 07/16/2019 TERSEA ALAMO MD Ot J06.9 ACUTE UPPER RESPIRATORY INFECTION, UNSPE 07/16/2019 TERESA ALAMO MD Ot M54.9 DORSALGIA, UNSPECIFIED 07/16/2019 TERESA ALAMO MD Ot N39.0 URINARY TRACT INFECTION, SITE NOT SPECIF 07/16/2019 TERESA ALAMO MD Ot R06.02 SHORTNESS OF BREATH 07/16/2019 TERESA ALAMO MD Ot Z79.899 OTHER MANUFACTURING RECRUITER (CURRENT) DRUG THERAPY 07/16/2019 TERESA ALAMO MD Ot Z88.0 ALLERGY STATUS TO PENICILLIN 07/16/2019 TERESA ALAMO MD Ot Z88.1 ALLERGY STATUS TO OTHER ANTIBIOTIC AGENT 07/16/2019 TERESA ALAMO MD Ot 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] 09/09/2019 MONIQUE TOTH APRN Ot Z12.31 ENCNTR SCREEN MAMMOGRAM FOR MALIGNANT NE 11/08/2019 W G47.01 Ins omnia due to medical condition Regino Teresa 11/08/2019 W I10 Essent ial (primary) hypertension Regino Teresa 11/08/2019 W J30.89 Oth er allergic rhinitis Regino Teresa 11/11/2019 NEENA HUMPHREYS APRN Ot F41 .9 ANXIETY DISORDER, UNSPECIFIED 11/11/2019 NEENA HUMPHREYS APRN Ot M25.562 PAIN IN LEFT KNEE 11/11/2019 NEENA HUMPHREYS APRN Ot S89.92XA UNSPECIFIED INJURY OF LEFT LOWER LEG, IN 11/11/2019 NEENA HUMPHREYS APRN Ot X50.0XXA OVEREXERTION FROM STRENUOUS MOVEMENT OR 11/11/2019 NEENA HUMPHREYS CUSTOMS INSPECTOR Ot Z82.49 FAMILY HX OF ISCHEM HEART DIS AND OTH DI 11/11/2019 NEENA HUMPHREYS CUSTOMS INSPECTOR Ot Z85.118 PERSONAL HISTORY OF MALIGNANT NEOPLASM O 11/11/2019 NEENA HUMPHREYS CUSTOMS INSPECTOR Ot Z88 .0 ALLERGY STATUS TO PENICILLIN 11/11/2019 NEENA HUMPHREYS CUSTOMS INSPECTOR Ot Z88 .8 ALLERGY STATUS TO OTH DRUG/MEDS/BIOL SUB 11/13/2019 W I10 Essent ial (primary) hypertension Regino [place] 11/13/2019 W M25.562 Le ft knee pain Regino [place] 12/27/2019 W L23.89 Oth er allergic contact dermatitis Ophelia [place] 12/27/2019 W R21 Rash a nd nonspecific skin eruption [place] 01/02/2020 W L23.89 Oth er allergic contact dermatitis Ophelia [place] 01/02/2020 W R21 Rash a nd nonspecific skin eruption Mirlande [place] 01/03/2020 W R21 Rash a nd nonspecific skin eruption [place] 01/07/2020 W R21 Rash a nd nonspecific skin eruption Mirlande [place] 02/04/2020 W I10 Essent ial (primary) hypertension [facility] 02/04/2020 W R42 Dizziness 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 Results Test Result Range Complete blood count (CBC) with automate d white blood cell (WBC) differential - 07/10/19 06:08 Blood leukocytes automated count (number/volume) 11.0 10*3/uL 4.3-11.0 Blood erythrocytes automated count (number/volume) 4.19 10*6/uL 4.35-5.85 Venous blood hemoglobin measurement (mass/volume) 13.0 g/dL 11.5-16.0 Blood hematocrit (volume fraction) 38 % 35-52 Automated erythrocyte mean corpuscular volume 91 [ foz_us] 80-99 Automated erythrocyte mean corpuscular h emoglobin (mass per erythrocyte) 31 pg 25-34 Automated erythrocyte mean corpuscular h emoglobin concentration measurement (mass/volume) 34 g/dL 32-36 Automated erythrocyte distribution width ratio 13. 8 % 10.0- 14.5 Automated blood platelet count (count/volume) 179 10*3/uL 130-400 Automated blood platelet mean volume measurement 10.6 [foz_us] 7.4-10.4 Automated blood neutrophils/100 leukocytes 95 % 42-75 Automated blood lymphocytes/100 leukocytes 1 % 12-44 Blood monocytes/100 leukocytes 4 % 0-12 Automated blood eosinophils/100 leukocytes 0 % 0-10 Automated blood basophils/100 leukocytes 0 % 0-10 Blood neutrophils automated count (number/volume) 10.4 10*3 1.8-7.8 Blood lymphocytes automated count (number/volume) 0.2 10*3 1.0-4.0 Blood monocytes automated count (number/volume) 0. 4 10*3 0.0-1.0 Automated eosinophil count 0.0 10*3/uL 0 .0-0.3 Automated blood basophil count (count/volume) 0.0 10*3/uL 0.0-0.1 Blood lactic acid measurement (moles/vol ume) - 07/10/19 06:08 Blood lactic acid measurement (moles/volume) 1.45 mmol/L 0.50-2.00 Influenza virus A and B antigen detectio n - 07/10/19 06:08 FLU RESULT NEGATIVE FOR INFLUENZA A AND B ANTIGENS BY IA NRG PT panel in platelet poor plasma by coag ulation assay - 07/10/19 06:08 Prothrombin time (PT) in platelet poor plasma by coagu lation assay 14.0 s 12.2-14.7 INR in platelet poor plasma or blood by coagulation as say 1.0 0.8-1.4 Activated partial thromboplastin time (a PTT) in platelet poor plasma bycoagulation assay - 07/10/19 06:08 Activated partial thromboplastin time (a PTT) in platelet poor plasma bycoagulation assay 32 s 24-35 Comprehensive metabolic panel - 07/10/19 06:08 Serum or plasma sodium measurement (moles/volume) 136 mmol/L 135-145 Serum or plasma potassium measurement (moles/volume) 3.5 mmol/L 3.6-5.0 Serum or plasma chloride measurement (moles/volume) 102 mmol/L 98-107 Carbon dioxide 23 mmol/L 21-32 Serum or plasma anion gap determination (moles/volume) 11 mmol/L 5-14 Serum or plasma urea nitrogen measurement (mass/volume ) 18 mg/dL 7-18 Serum or plasma creatinine measurement (mass/volume) 0.82 mg/dL 0.60-1.30 Serum or plasma urea nitrogen/creatinine mass ratio 22 NRG Serum or plasma creatinine measurement w ith calculation of estimated glomerular filtration rate > NRG Serum or plasma glucose measurement (mass/volume) 144 mg/dL 70-105 Serum or plasma calcium measurement (mass/volume) 9.1 mg/dL 8.5-10.1 Serum or plasma total bilirubin measurement (mass/volu me) 0.9 mg/dL 0.1-1.0 Serum or plasma alkaline phosphatase lenny surement (enzymatic activity/volume) 58 U/L 40-136 Serum or plasma aspartate aminotransfera se measurement (enzymatic activity/volume) 25 U/L 5-34 Serum or plasma alanine aminotransferase measurement (enzymatic activity/volume) 15 U/L 0-55 Serum or plasma protein measurement (mass/volume) 6.4 g/dL 6.4-8.2 Serum or plasma albumin measurement (mass/volume) 3.8 g/dL 3.2-4.5 CALCIUM CORRECTED 9.3 mg/dL 8.5-10.1 Manual absolute plasma cell count - 06/13 06:08 Blood monocytes/100 leukocytes 3 % NRG Manual blood segmented neutrophils/100 leukocytes 95 % NRG Manual blood lymphocytes/100 leukocytes 2 % NRG Serum or plasma C reactive protein measu rement (mass/volume) - 07/10/19 06:08 Serum or plasma C reactive protein measurement (mass/v olume) 4.19 mg/dL 0.00-0.50 Bacterial blood culture - 07/10/19 06:08 Bacterial blood culture NG NRG Bacterial blood culture - 07/10/19 06:25 Bacterial blood culture NG NRG Complete urinalysis with reflex to cultu re - 07/10/19 06:46 Urine color determination YELLOW NRG Urine clarity determination CLEAR NR G Urine pH measurement by test strip 6 5-9 Specific gravity of urine by test strip 1.010 1.016-1.022 Urine protein assay by test strip, semi-quantitative NEGATIVE NEGATIVE Urine glucose detection by automated test strip NE GATIVE NEGATIVE Erythrocytes detection in urine sediment by light micr oscopy 4+ NEGATIVE Urine ketones detection by automated test strip 2+ NEGATIVE Urine nitrite detection by test strip POSITIVE NEGATIVE Urine total bilirubin detection by test strip NEGA TIVE NEGATIVE Urine urobilinogen measurement by automated test strip (mass/volume) NORMAL NORMAL Urine leukocyte esterase detection by dipstick 2+ NEGATIVE Automated urine sediment erythrocyte cou nt by microscopy (number/high power field) [HPF] NRG Automated urine sediment leukocyte count by microscopy (number/high power field) [HPF] NRG Bacteria detection in urine sediment by light microsco py MODERATE NRG Squamous epithelial cells detection in u rine sediment by light microscopy 10-25 NRG Crystals detection in urine sediment by light microsco py NONE NRG Casts detection in urine sediment by light microscopy NONE NRG Mucus detection in urine sediment by light microscopy NEGATIVE NRG Complete urinalysis with reflex to culture YES NRG Bacterial urine culture - 07/10/19 06:46 Bacterial urine culture [id number] NRG COLONY COUNT >100,000/ML NRG FTX;REPORTABLE ID/SUSCEPTIBILITY REPORTED 07/13/19 9:15 NRG Dirithromycin susceptibility test by dis k diffusion - 07/10/19 06:46 Gentamicin susceptibility test by minimum inhibitory c oncentration <= NRG Trimethoprim/sulfamethoxazole susceptibi lity test by minimum inhibitoryconcentration > NRG Levofloxacin susceptibility test by minimum inhibitory concentration <= NRG Ampicillin susceptibility test by minimum inhibitory c oncentration > NRG Cefazolin susceptibility test by minimum inhibitory co ncentration 2 NRG Ceftriaxone susceptibility test by minimum inhibitory concentration <= NRG Ciprofloxacin susceptibility test by minimum inhibitor y concentration <= NRG Meropenem susceptibility test by minimum inhibitory co ncentration <= NRG Nitrofurantoin susceptibility test by mi nimum inhibitory concentration <= NRG Amoxicillin and clavulanate potassium susc NERI <= NRG Dirithromycin susceptibility test by dis k diffusion - 07/10/19 06:46 Gentamicin susceptibility test by minimum inhibitory c oncentration <= NRG Trimethoprim/sulfamethoxazole susceptibi lity test by minimum inhibitoryconcentration > NRG Levofloxacin susceptibility test by minimum inhibitory concentration <= NRG Ampicillin susceptibility test by minimum inhibitory c oncentration > NRG Cefazolin susceptibility test by minimum inhibitory co ncentration 2 NRG Ceftriaxone susceptibility test by minimum inhibitory concentration <= NRG Ciprofloxacin susceptibility test by minimum inhibitor y concentration <= NRG Meropenem susceptibility test by minimum inhibitory co ncentration <= NRG Nitrofurantoin susceptibility test by mi nimum inhibitory concentration <= NRG Amoxicillin and clavulanate potassium susc NERI <= NRG Automated blood complete blood count ( mogram) panel - 07/11/19 09:07 Blood leukocytes automated count (number/volume) 8.0 10*3/uL 4.3-11.0 Blood erythrocytes automated count (number/volume) 3.88 10*6/uL 4.35-5.85 Venous blood hemoglobin measurement (mass/volume) 12.2 g/dL 11.5-16.0 Blood hematocrit (volume fraction) 36 % 35-52 Automated erythrocyte mean corpuscular volume 92 [ foz_us] 80-99 Automated erythrocyte mean corpuscular h emoglobin (mass per erythrocyte) 31 pg 25-34 Automated erythrocyte mean corpuscular h emoglobin concentration measurement (mass/volume) 34 g/dL 32-36 Automated erythrocyte distribution width ratio 14. 3 % 10.0- 14.5 Automated blood platelet count (count/volume) 137 10*3/uL 130-400 Automated blood platelet mean volume measurement 10.7 [foz_us] 7.4-10.4 Comprehensive metabolic panel - 07/11/19 09:07 Serum or plasma sodium measurement (moles/volume) 140 mmol/L 135-145 Serum or plasma potassium measurement (moles/volume) 4.1 mmol/L 3.6-5.0 Serum or plasma chloride measurement (moles/volume) 111 mmol/L 98-107 Carbon dioxide 21 mmol/L 21-32 Serum or plasma anion gap determination (moles/volume) 8 mmol/L 5-14 Serum or plasma urea nitrogen measurement (mass/volume ) 18 mg/dL 7-18 Serum or plasma creatinine measurement (mass/volume) 0.80 mg/dL 0.60-1.30 Serum or plasma urea nitrogen/creatinine mass ratio 23 NRG Serum or plasma creatinine measurement w ith calculation of estimated glomerular filtration rate > NRG Serum or plasma glucose measurement (mass/volume) 156 mg/dL 70-105 Serum or plasma calcium measurement (mass/volume) 7.9 mg/dL 8.5-10.1 Serum or plasma total bilirubin measurement (mass/volu me) 1.5 mg/dL 0.1-1.0 Serum or plasma alkaline phosphatase lenny surement (enzymatic activity/volume) 73 U/L 40-136 Serum or plasma aspartate aminotransfera se measurement (enzymatic activity/volume) 91 U/L 5-34 Serum or plasma alanine aminotransferase measurement (enzymatic activity/volume) 85 U/L 0-55 Serum or plasma protein measurement (mass/volume) 5.3 g/dL 6.4-8.2 Serum or plasma albumin measurement (mass/volume) 3.0 g/dL 3.2-4.5 CALCIUM CORRECTED 8.7 mg/dL 8.5-10.1 Complete urinalysis with reflex to cultu re - 04/17/20 00:05 Urine color determination YELLOW NRG Urine clarity determination CLOUDY NR G Urine pH measurement by test strip 7.5 5-9 Specific gravity of urine by test strip 1.010 1.016-1.022 Urine protein assay by test strip, semi-quantitative TRACE NEGATIVE Urine glucose detection by automated test strip NE GATIVE NEGATIVE Erythrocytes detection in urine sediment by light micr oscopy TRACE-I NEGATIVE Urine ketones detection by automated test strip NE GATIVE NEGATIVE Urine nitrite detection by test strip POSITIVE NEGATIVE Urine total bilirubin detection by test strip NEGA TIVE NEGATIVE Urine urobilinogen measurement by automated test strip (mass/volume) 1.0 mg/dL < = 1.0 Urine leukocyte esterase detection by dipstick 3+ NEGATIVE Automated urine sediment erythrocyte cou nt by microscopy (number/high power field) RARE NRG Automated urine sediment leukocyte count by microscopy (number/high power field) [HPF] NRG Bacteria detection in urine sediment by light microsco py FEW NRG Squamous epithelial cells detection in u rine sediment by light microscopy 0-2 NRG Crystals detection in urine sediment by light microsco py NONE NRG Casts detection in urine sediment by light microscopy NONE NRG Mucus detection in urine sediment by light microscopy NEGATIVE NRG Complete urinalysis with reflex to culture YES NRG Renal epithelial cells detection in urin e sediment by light microscopy 0-2 NRG Bacterial urine culture - 04/17/20 00:05 Bacterial urine culture [id number] NRG COLONY COUNT PREDOMINANCE NRG SUSCEPTIBILITY SUSCEPTIBILITY REPORTED 04/19 10:15 NRG RAPID ID OBSERVED ON PLATES AT [facility] 04/17/20 1300 NRG Dirithromycin susceptibility test by dis k diffusion - 04/17/20 00:05 Gentamicin susceptibility test by minimum inhibitory c oncentration 4 NRG Trimethoprim/sulfamethoxazole susceptibi lity test by minimum inhibitoryconcentration <= NRG Levofloxacin susceptibility test by minimum inhibitory concentration <= NRG Ampicillin susceptibility test by minimum inhibitory c oncentration <= NRG Cefazolin susceptibility test by minimum inhibitory co ncentration 4 NRG Ceftriaxone susceptibility test by minimum inhibitory concentration <= NRG Ciprofloxacin susceptibility test by minimum inhibitor y concentration <= NRG Nitrofurantoin susceptibility test by mi nimum inhibitory concentration > NRG Amoxicillin and clavulanate potassium susc NERI <= NRG Complete blood count (CBC) with automate d white blood cell (WBC) differential - 04/17/20 00:35 Blood leukocytes automated count (number/volume) 11.4 10*3/uL 4.3-11.0 Blood erythrocytes automated count (number/volume) 4.29 10*6/uL 4.35-5.85 Venous blood hemoglobin measurement (mass/volume) 14.0 g/dL 11.5-16.0 Blood hematocrit (volume fraction) 41 % 35-52 Automated erythrocyte mean corpuscular volume 95 [ foz_us] 80-99 Automated erythrocyte mean corpuscular h emoglobin (mass per erythrocyte) 33 pg 25-34 Automated erythrocyte mean corpuscular h emoglobin concentration measurement (mass/volume) 34 g/dL 32-36 Automated erythrocyte distribution width ratio 13. 8 % 10.0- 14.5 Automated blood platelet count (count/volume) 165 10*3/uL 130-400 Automated blood platelet mean volume measurement 9.7 [foz_us] 7.4-10.4 Automated blood neutrophils/100 leukocytes 97 % 42-75 Automated blood lymphocytes/100 leukocytes 1 % 12-44 Blood monocytes/100 leukocytes 2 % 0-12 Automated blood eosinophils/100 leukocytes 0 % 0-10 Automated blood basophils/100 leukocytes 0 % 0-10 Blood neutrophils automated count (number/volume) 11.0 10*3 1.8-7.8 Blood lymphocytes automated count (number/volume) 0.1 10*3 1.0-4.0 Blood monocytes automated count (number/volume) 0. 2 10*3 0.0-1.0 Automated eosinophil count 0.0 10*3/uL 0 .0-0.3 Automated blood basophil count (count/volume) 0.0 10*3/uL 0.0-0.1 Comprehensive metabolic panel - 04/17/20 00:35 Serum or plasma sodium measurement (moles/volume) 138 mmol/L 135-145 Serum or plasma potassium measurement (moles/volume) 3.3 mmol/L 3.6-5.0 Serum or plasma chloride measurement (moles/volume) 102 mmol/L 98-107 Carbon dioxide 25 mmol/L 21-32 Serum or plasma anion gap determination (moles/volume) 11 mmol/L 5-14 Serum or plasma urea nitrogen measurement (mass/volume ) 21 mg/dL 7-18 Serum or plasma creatinine measurement (mass/volume) 0.83 mg/dL 0.60-1.30 Serum or plasma urea nitrogen/creatinine mass ratio 25 NRG Serum or plasma creatinine measurement w ith calculation of estimated glomerular filtration rate > NRG Serum or plasma glucose measurement (mass/volume) 147 mg/dL 70-105 Serum or plasma calcium measurement (mass/volume) 8.9 mg/dL 8.5-10.1 Serum or plasma total bilirubin measurement (mass/volu me) 1.3 mg/dL 0.1-1.0 Serum or plasma alkaline phosphatase lenny surement (enzymatic activity/volume) 60 U/L 40-136 Serum or plasma aspartate aminotransfera se measurement (enzymatic activity/volume) 137 U/L 5-34 Serum or plasma alanine aminotransferase measurement (enzymatic activity/volume) 104 U/L 0-55 Serum or plasma protein measurement (mass/volume) 5.5 g/dL 6.4-8.2 Serum or plasma albumin measurement (mass/volume) 3.6 g/dL 3.2-4.5 CALCIUM CORRECTED 9.2 mg/dL 8.5-10.1 Serum or plasma C reactive protein measu rement (mass/volume) - 04/17/20 00:35 Serum or plasma C reactive protein measurement (mass/v olume) 0.58 mg/dL 0.00-0.50 Manual absolute plasma cell count - 0803/30 00:35 Blood monocytes/100 leukocytes 2 % NRG Manual blood segmented neutrophils/100 leukocytes 86 % NRG Blood band neutrophils/100 leukocytes 8 % NRG Manual blood lymphocytes/100 leukocytes 2 % NRG Manual eosinophils/100 leukocytes in nose 1 % NRG Manual blood basophils/100 leukocytes 1 % NRG Blood toxic granules detection by light microscopy 2+ NRG Blood lactic acid measurement (moles/vol ume) - 04/17/20 01:00 Blood lactic acid measurement (moles/volume) 2.77 mmol/L 0.50-2.00 Bacterial blood culture - 04/17/20 01:00 Bacterial blood culture NG NRG Bacterial blood culture - 04/17/20 01:07 Bacterial blood culture NG NRG Complete blood count (CBC) with automate d white blood cell (WBC) differential - 04/17/20 03:00 Blood leukocytes automated count (number/volume) 10.7 10*3/uL 4.3-11.0 Blood erythrocytes automated count (number/volume) 3.88 10*6/uL 4.35-5.85 Venous blood hemoglobin measurement (mass/volume) 12.5 g/dL 11.5-16.0 Blood hematocrit (volume fraction) 37 % 35-52 Automated erythrocyte mean corpuscular volume 96 [ foz_us] 80-99 Automated erythrocyte mean corpuscular h emoglobin (mass per erythrocyte) 32 pg 25-34 Automated erythrocyte mean corpuscular h emoglobin concentration measurement (mass/volume) 34 g/dL 32-36 Automated erythrocyte distribution width ratio 13. 8 % 10.0- 14.5 Automated blood platelet count (count/volume) 152 10*3/uL 130-400 Automated blood platelet mean volume measurement 9.8 [foz_us] 7.4-10.4 Automated blood neutrophils/100 leukocytes 97 % 42-75 Automated blood lymphocytes/100 leukocytes 1 % 12-44 Blood monocytes/100 leukocytes 2 % 0-12 Automated blood eosinophils/100 leukocytes 0 % 0-10 Automated blood basophils/100 leukocytes 0 % 0-10 Blood neutrophils automated count (number/volume) 10.4 10*3 1.8-7.8 Blood lymphocytes automated count (number/volume) 0.1 10*3 1.0-4.0 Blood monocytes automated count (number/volume) 0. 3 10*3 0.0-1.0 Automated eosinophil count 0.0 10*3/uL 0 .0-0.3 Automated blood basophil count (count/volume) 0.0 10*3/uL 0.0-0.1 Comprehensive metabolic panel - 04/17/20 03:00 Serum or plasma sodium measurement (moles/volume) 137 mmol/L 135-145 Serum or plasma potassium measurement (moles/volume) 3.5 mmol/L 3.6-5.0 Serum or plasma chloride measurement (moles/volume) 104 mmol/L 98-107 Carbon dioxide 20 mmol/L 21-32 Serum or plasma anion gap determination (moles/volume) 13 mmol/L 5-14 Serum or plasma urea nitrogen measurement (mass/volume ) 19 mg/dL 7-18 Serum or plasma creatinine measurement (mass/volume) 0.75 mg/dL 0.60-1.30 Serum or plasma urea nitrogen/creatinine mass ratio 25 NRG Serum or plasma creatinine measurement w ith calculation of estimated glomerular filtration rate > NRG Serum or plasma glucose measurement (mass/volume) 135 mg/dL 70-105 Serum or plasma calcium measurement (mass/volume) 8.1 mg/dL 8.5-10.1 Serum or plasma total bilirubin measurement (mass/volu me) 1.3 mg/dL 0.1-1.0 Serum or plasma alkaline phosphatase lenny surement (enzymatic activity/volume) 48 U/L 40-136 Serum or plasma aspartate aminotransfera se measurement (enzymatic activity/volume) 116 U/L 5-34 Serum or plasma alanine aminotransferase measurement (enzymatic activity/volume) 97 U/L 0-55 Serum or plasma protein measurement (mass/volume) 5.1 g/dL 6.4-8.2 Serum or plasma albumin measurement (mass/volume) 3.0 g/dL 3.2-4.5 CALCIUM CORRECTED 8.9 mg/dL 8.5-10.1 Serum or plasma lactate measurement (mol es/volume) - 04/17/20 03:00 Serum or plasma lactate measurement (moles/volume) 3.65 mmol/L 0.50-2.00 Serum or plasma lactate measurement (mol es/volume) - 04/17/20 05:31 Serum or plasma lactate measurement (moles/volume) 3.69 mmol/L 0.50-2.00 Complete blood count (CBC) with automate d white blood cell (WBC) differential - 04/17/20 05:31 Blood leukocytes automated count (number/volume) 12.7 10*3/uL 4.3-11.0 Blood erythrocytes automated count (number/volume) 3.83 10*6/uL 4.35-5.85 Venous blood hemoglobin measurement (mass/volume) 12.4 g/dL 11.5-16.0 Blood hematocrit (volume fraction) 37 % 35-52 Automated erythrocyte mean corpuscular volume 96 [ foz_us] 80-99 Automated erythrocyte mean corpuscular h emoglobin (mass per erythrocyte) 32 pg 25-34 Automated erythrocyte mean corpuscular h emoglobin concentration measurement (mass/volume) 34 g/dL 32-36 Automated erythrocyte distribution width ratio 14. 0 % 10.0- 14.5 Automated blood platelet count (count/volume) 164 10*3/uL 130-400 Automated blood platelet mean volume measurement 10.6 [foz_us] 7.4-10.4 Automated blood neutrophils/100 leukocytes 96 % 42-75 Automated blood lymphocytes/100 leukocytes 1 % 12-44 Blood monocytes/100 leukocytes 3 % 0-12 Automated blood eosinophils/100 leukocytes 0 % 0-10 Automated blood basophils/100 leukocytes 0 % 0-10 Blood neutrophils automated count (number/volume) 12.2 10*3 1.8-7.8 Blood lymphocytes automated count (number/volume) 0.1 10*3 1.0-4.0 Blood monocytes automated count (number/volume) 0. 4 10*3 0.0-1.0 Automated eosinophil count 0.0 10*3/uL 0 .0-0.3 Automated blood basophil count (count/volume) 0.0 10*3/uL 0.0-0.1 Comprehensive metabolic panel - 04/17/20 05:31 Serum or plasma sodium measurement (moles/volume) 136 mmol/L 135-145 Serum or plasma potassium measurement (moles/volume) 3.9 mmol/L 3.6-5.0 Serum or plasma chloride measurement (moles/volume) 103 mmol/L 98-107 Carbon dioxide 17 mmol/L 21-32 Serum or plasma anion gap determination (moles/volume) 16 mmol/L 5-14 Serum or plasma urea nitrogen measurement (mass/volume ) 20 mg/dL 7-18 Serum or plasma creatinine measurement (mass/volume) 0.79 mg/dL 0.60-1.30 Serum or plasma urea nitrogen/creatinine mass ratio 25 NRG Serum or plasma creatinine measurement w ith calculation of estimated glomerular filtration rate > NRG Serum or plasma glucose measurement (mass/volume) 141 mg/dL 70-105 Serum or plasma calcium measurement (mass/volume) 7.8 mg/dL 8.5-10.1 Serum or plasma total bilirubin measurement (mass/volu me) 1.6 mg/dL 0.1-1.0 Serum or plasma alkaline phosphatase lenny surement (enzymatic activity/volume) 42 U/L 40-136 Serum or plasma aspartate aminotransfera se measurement (enzymatic activity/volume) 112 U/L 5-34 Serum or plasma alanine aminotransferase measurement (enzymatic activity/volume) 96 U/L 0-55 Serum or plasma protein measurement (mass/volume) 5.0 g/dL 6.4-8.2 Serum or plasma albumin measurement (mass/volume) 2.9 g/dL 3.2-4.5 CALCIUM CORRECTED 8.7 mg/dL 8.5-10.1 Serum or plasma lactate measurement (mol es/volume) - 04/17/20 07:50 Serum or plasma lactate measurement (moles/volume) 2.39 mmol/L 0.50-2.00 Serum or plasma lactate measurement (mol es/volume) - 04/17/20 09:58 Serum or plasma lactate measurement (moles/volume) 6.39 mmol/L 0.50-2.00 Blood lactic acid measurement (moles/vol ume) - 04/17/20 12:16 Blood lactic acid measurement (moles/volume) 3.85 mmol/L 0.50-2.00 Serum or plasma lactate measurement (mol es/volume) - 04/17/20 14:26 Serum or plasma lactate measurement (moles/volume) 3.13 mmol/L 0.50-2.00 Blood lactic acid measurement (moles/vol ume) - 04/17/20 15:57 Blood lactic acid measurement (moles/volume) 2.46 mmol/L 0.50-2.00 Serum or plasma lactate measurement (mol es/volume) - 04/17/20 18:00 Serum or plasma lactate measurement (moles/volume) 1.52 mmol/L 0.50-2.00 Whole blood basic metabolic panel - 04/30 10:27 Serum or plasma sodium measurement (moles/volume) 138 mmol/L 135-145 Serum or plasma potassium measurement (moles/volume) 2.9 mmol/L 3.6-5.0 Serum or plasma chloride measurement (moles/volume) 106 mmol/L 98-107 Carbon dioxide 24 mmol/L 21-32 Serum or plasma anion gap determination (moles/volume) 8 mmol/L 5-14 Serum or plasma urea nitrogen measurement (mass/volume ) 11 mg/dL 7-18 Serum or plasma creatinine measurement (mass/volume) 0.58 mg/dL 0.60-1.30 Serum or plasma urea nitrogen/creatinine mass ratio 19 NRG Serum or plasma creatinine measurement w ith calculation of estimated glomerular filtration rate > NRG Serum or plasma glucose measurement (mass/volume) 85 mg/dL 70-105 Serum or plasma calcium measurement (mass/volume) 7.9 mg/dL 8.5-10.1 Whole blood basic metabolic panel - 05/31 08:30 Serum or plasma sodium measurement (moles/volume) 141 mmol/L 135-145 Serum or plasma potassium measurement (moles/volume) 3.7 mmol/L 3.6-5.0 Serum or plasma chloride measurement (moles/volume) 109 mmol/L 98-107 Carbon dioxide 25 mmol/L 21-32 Serum or plasma anion gap determination (moles/volume) 7 mmol/L 5-14 Serum or plasma urea nitrogen measurement (mass/volume ) 8 mg/dL 7-18 Serum or plasma creatinine measurement (mass/volume) 0.52 mg/dL 0.60-1.30 Serum or plasma urea nitrogen/creatinine mass ratio 15 NRG Serum or plasma creatinine measurement w ith calculation of estimated glomerular filtration rate > NRG Serum or plasma glucose measurement (mass/volume) 91 mg/dL 70-105 Serum or plasma calcium measurement (mass/volume) 8.1 mg/dL 8.5-10.1 Magnesium - 04/19/20 08:30 Magnesium 1.8 mg/dL 1.6-2.4 Complete blood count (CBC) with automate d white blood cell (WBC) differential - 04/20/20 22:20 Blood leukocytes automated count (number/volume) 6.3 10*3/uL 4.3-11.0 Blood erythrocytes automated count (number/volume) 3.61 10*6/uL 4.35-5.85 Venous blood hemoglobin measurement (mass/volume) 11.7 g/dL 11.5-16.0 Blood hematocrit (volume fraction) 34 % 35-52 Automated erythrocyte mean corpuscular volume 94 [ foz_us] 80-99 Automated erythrocyte mean corpuscular h emoglobin (mass per erythrocyte) 32 pg 25-34 Automated erythrocyte mean corpuscular h emoglobin concentration measurement (mass/volume) 34 g/dL 32-36 Automated erythrocyte distribution width ratio 13. 6 % 10.0- 14.5 Automated blood platelet count (count/volume) 143 10*3/uL 130-400 Automated blood platelet mean volume measurement 10.9 [foz_us] 7.4-10.4 Automated blood neutrophils/100 leukocytes 93 % 42-75 Automated blood lymphocytes/100 leukocytes 2 % 12-44 Blood monocytes/100 leukocytes 4 % 0-12 Automated blood eosinophils/100 leukocytes 2 % 0-10 Automated blood basophils/100 leukocytes 0 % 0-10 Blood neutrophils automated count (number/volume) 5.9 10*3 1.8-7.8 Blood lymphocytes automated count (number/volume) 0.1 10*3 1.0-4.0 Blood monocytes automated count (number/volume) 0. 2 10*3 0.0-1.0 Automated eosinophil count 0.1 10*3/uL 0 .0-0.3 Automated blood basophil count (count/volume) 0.0 10*3/uL 0.0-0.1 Comprehensive metabolic panel - 04/20/20 22:20 Serum or plasma sodium measurement (moles/volume) 139 mmol/L 135-145 Serum or plasma potassium measurement (moles/volume) 3.3 mmol/L 3.6-5.0 Serum or plasma chloride measurement (moles/volume) 105 mmol/L 98-107 Carbon dioxide 26 mmol/L 21-32 Serum or plasma anion gap determination (moles/volume) 8 mmol/L 5-14 Serum or plasma urea nitrogen measurement (mass/volume ) 9 mg/dL 7-18 Serum or plasma creatinine measurement (mass/volume) 0.56 mg/dL 0.60-1.30 Serum or plasma urea nitrogen/creatinine mass ratio 16 NRG Serum or plasma creatinine measurement w ith calculation of estimated glomerular filtration rate > NRG Serum or plasma glucose measurement (mass/volume) 106 mg/dL 70-105 Serum or plasma calcium measurement (mass/volume) 8.4 mg/dL 8.5-10.1 Serum or plasma total bilirubin measurement (mass/volu me) 1.9 mg/dL 0.1-1.0 Serum or plasma alkaline phosphatase lenny surement (enzymatic activity/volume) 242 U/L 40-136 Serum or plasma aspartate aminotransfera se measurement (enzymatic activity/volume) 41 U/L 5-34 Serum or plasma alanine aminotransferase measurement (enzymatic activity/volume) 62 U/L 0-55 Serum or plasma protein measurement (mass/volume) 5.0 g/dL 6.4-8.2 Serum or plasma albumin measurement (mass/volume) 2.8 g/dL 3.2-4.5 CALCIUM CORRECTED 9.4 mg/dL 8.5-10.1 Magnesium - 04/20/20 22:20 Magnesium 1.6 mg/dL 1.6-2.4 PT panel in platelet poor plasma by coag ulation assay - 04/20/20 22:20 Prothrombin time (PT) in platelet poor plasma by coagu lation assay 13.4 s 12.2-14.7 INR in platelet poor plasma or blood by coagulation as say 1.0 0.8-1.4 Activated partial thromboplastin time (a PTT) in platelet poor plasma bycoagulation assay - 04/20/20 22:20 Activated partial thromboplastin time (a PTT) in platelet poor plasma bycoagulation assay 32 s 24-35 Manual absolute plasma cell count - 04/11 22:20 Blood monocytes/100 leukocytes 5 % NRG Manual blood segmented neutrophils/100 leukocytes 91 % NRG Manual blood lymphocytes/100 leukocytes 3 % NRG Manual eosinophils/100 leukocytes in nose 1 % NRG Blood erythrocyte morphology finding identification NORMAL NRG Complete urinalysis with reflex to cultu re - 04/20/20 22:52 Urine color determination YELLOW NRG Urine clarity determination CLEAR NR G Urine pH measurement by test strip 6.5 5-9 Specific gravity of urine by test strip 1.010 1.016-1.022 Urine protein assay by test strip, semi-quantitative NEGATIVE NEGATIVE Urine glucose detection by automated test strip NE GATIVE NEGATIVE Erythrocytes detection in urine sediment by light micr oscopy TRACE-I NEGATIVE Urine ketones detection by automated test strip TR ASTON NEGATIVE Urine nitrite detection by test strip NEGATIVE NEGATIVE Urine total bilirubin detection by test strip NEGA TIVE NEGATIVE Urine urobilinogen measurement by automated test strip (mass/volume) 0.2 mg/dL < = 1.0 Urine leukocyte esterase detection by dipstick NEG ATIVE NEGATIVE Automated urine sediment erythrocyte cou nt by microscopy (number/high power field) [HPF] NRG Automated urine sediment leukocyte count by microscopy (number/high power field) [HPF] NRG Bacteria detection in urine sediment by light microsco py TRACE NRG Squamous epithelial cells detection in u rine sediment by light microscopy 10-25 NRG Crystals detection in urine sediment by light microsco py NONE NRG Casts detection in urine sediment by light microscopy NONE NRG Mucus detection in urine sediment by light microscopy NEGATIVE NRG Complete urinalysis with reflex to culture CULTURE PENDING NRG Blood lactic acid measurement (moles/vol ume) - 04/20/20 23:00 Blood lactic acid measurement (moles/volume) 1.52 mmol/L 0.50-2.00 Encounters ACCT No. Visit Date/Time Discharge Status Pt. Type Provider Facility Loc./Unit Complaint [id number] 09/17/2019 09:33:00 Document Registration [id number] 04/17/2020 01:03:00 020 12:03:00 DIS Inpatient TERESA ALAMO MD [facility] 4TH UTI [id number] 11/08/2019 14:05:00 020 15:14:00 DIS Outpatient NEENA HUMPHREYS APRN [facility] ER L LEG PAIN [id number] 07/10/2019 08:45:00 09:35:00 DIS Inpatient TERESA ALAMO MD [facility] 4TH UTI;URI;HYPOXIA [id number] 06/19/2019 08:57:00 019 23:59:59 CLS Outpatient MONIQUE TOTH APRN [facility] RAD COPD [id number] 05/24/2018 10:42:00 018 23:59:59 CLS Outpatient MONIQUE TOTH APRN [facility] RAD SCREENING [id number] 03/26/2018 07:29:00 018 23:59:59 CLS Outpatient MONIQUE TOTH APRN [facility] RAD CONFUSION,FATIGUE,HEAD ACHE [id number] 02/23/2018 10:48:00 018 23:59:59 CLS Outpatient MONIQUE TOTH APRN [facility] RAD HEADACHE,WORST OF LIFE LIGHT HEADEDNESS [id number] 05/17/2017 09:57:00 017 23:59:59 CLS Outpatient MONIQUE TOTH APRN [facility] RAD SCREENING [id number] 05/03/2016 09:20:00 016 23:59:59 CLS Outpatient MIRLANDE DUNLAP [facility] RAD SCREENING [id number] 04/23/2015 10:21:00 015 23:59:59 CLS Outpatient MIRLANDE DUNLAP [facility] RAD SCREENING [id number] 04/08/2015 09:19:00 015 15:05:00 DIS Outpatient ALANNAH VELASQUEZ MD [facility] SDC SCREENING [id number] 02/23/2015 06:51:00 06/15/2 015 23:59:59 CLS Outpatient TERESA ALAMO MD [facility] RAD ABDOMINAL PAIN [id number] 09/17/2014 10:54:00 23:59:59 CLS Outpatient OLIVIA VALDES MD [facility] RAD BRONCHIAL CARCINOID NORBERTO ORS [id number] 08/13/2014 14:10:00 23:59:59 CLS Outpatient JUSTIN FLOWERS MD [facility] RAD COUGH,WHEEZES, [id number] 04/23/2014 08:59:00 23:59:59 CLS Outpatient JUSTIN FLOWERS MD [facility] RAD SCREENING [id number] 02/20/2014 08:34:00 23:59:59 CLS Outpatient JUSTIN FLOWERS MD [facility] RAD RUQ PAIN [id number] 09/12/2013 08:59:00 23:59:59 CLS Outpatient OLIVIA VALDES MD [facility] RAD TUMORS [id number] 05/01/2013 10:31:00 23:59:59 CLS Outpatient JUSTIN FLOWERS MD [facility] RAD SCREENING [id number] 03/01/2013 08:14:00 23:59:59 CLS Outpatient OLIVIA VALDES MD [facility] RAD BRONCHIAL CARCINOID NORBERTO ORS [id number] 01/15/2013 09:59:00 23:59:59 CLS Outpatient JUSTIN FLOWERS MD [facility] RAD LBP [id number] 04/20/2020 22:48:00 Document Registration [id number] 12/05/2012 09:14:00 Document Registration [id number] 08/30/2012 12:23:00 Document Registration [id number] 08/30/2012 10:08:00 Document Registration [id number] 08/29/2012 15:37:00 Document Registration [id number] 08/23/2012 09:38:00 Document Registration [id number] 06/01/2012 10:31:00 Document Registration [id number] 04/25/2012 14:32:00 Document Registration [id number] 02/01/2012 11:44:00 Document Registration [id number] 05/25/2011 14:11:00 Document Registration [id number] 05/23/2011 08:58:00 Document Registration [id number] 04/20/2011 12:45:00 Document Registration [id number] 03/02/2011 13:27:00 Document Registration [id number] 04/15/2010 09:16:00 Document Registration [id number] 09/30/2009 12:43:00 Document Registration [id number] 09/24/2009 15:56:00 Document Registration [id number] 09/17/2009 11:33:00 Document Registration [id number] 09/14/2018 14:03:00 Document Registration
[2020-04-21] MEDS ORDERED: EPINEPHrine 1 MG INJECTION 2 MG in NS (IVPB) 248 ML IV SCH (00:45)
[2020-04-21] MEDS ORDERED: ONDANSETRON 4 MG/2 ML (SDV) Z0FRAN IV PRN (00:45)
[2020-04-21] MEDS ORDERED: GENTAMICIN 40 MG/ML 2 ML INJ SDV ONE (00:53)
[2020-04-21] MEDS ORDERED: D5W 100 ML IVPB 100 ML IV ONE (00:55)
[2020-04-21] MEDS: NOREPINEPHRINE 4 MG/250 ML 250 ML IV SCH ×3 (01:04→16:47)
[2020-04-21] MEDS: VASOPRESSIN INJECTION 20 UNIT in NORMAL SALINE 100 ML IV SCH ×3 (01:05→16:47)
[2020-04-21] MEDS: ACETAMINOPHEN 325 MG TABLET PO PRN ×2 (01:16→06:17)
[2020-04-21] MEDS: 1/2 NS W/KCL 20 MEQ/L 1,000 ML IV SCH ×4 (01:38→16:32)
--- NOTE | 2020-04-21 01:41 | NUR ---
THIS RN SPOKE WITH DR ALAMO IN REGARDS TO THE FLUIDS ORDERED ON THIS PT. / NS WITH 2O KCL WAS ORDERED BUT THESE FLUIDS ARE NOWHERE IN HOUSE. THIS RN SPOKE WITH DR. ALAMO AND RECEIVED NEW ORDERS FOR NS @ 150 AND 1 BAG (20 MEQ) OF POTASSIUM. NS IS TO RUN UNTIL PHARMACY GETS HERE TO MIX ORIGINAL FLUID ORDER.
[2020-04-21] MEDS: NS IV 1000 ML 1,000 ML IV SCH ×2 (01:50→08:32)
[2020-04-21] MEDS: POTASSIUM CL 10MEQ/50ML IVPB 50 ML IV SCH ×2 (01:50→03:01)
--- NOTE | 2020-04-21 02:09 | NUR ---
PT ARRIVED TO THE UNIT WITH A TEMP OF 38.3 TEMPORAL. THIS RN ADMINISTERED TYLENOL (SEE EMAR) AND TEMP IS NOW AT 37.5. PT IS RESTING IN BED AND VOICES NO COMPLAINTS
[2020-04-21 03:25] LABS: BASOPHILS % (AUTO) 0 % (0-10); EOSINOPHILS # (AUTO) 0.1 10^3/uL (0.0-0.3); EOSINOPHILS % (AUTO) 1 % (0-10); HEMATOCRIT 32 % (35-52); HEMOGLOBIN 10.9 G/DL (11.5-16.0); LYMPHOCYTES # (AUTO) 0.1 X 10^3 (1.0-4.0); LYMPHOCYTES % (AUTO) 1 % (12-44); MEAN CORPUSCULAR HEMOGLOBIN 33 PG (25-34); MEAN CORPUSCULAR HGB CONC 34 G/DL (32-36); MEAN CORPUSCULAR VOLUME 95 FL (80-99); MEAN PLATELET VOLUME 10.6 FL (7.4-10.4); MONOCYTES # (AUTO) 0.6 X 10^3 (0.0-1.0); MONOCYTES % (AUTO) 6 % (0-12); NEUTROPHILS # (AUTO) 9.7 X 10^3 (1.8-7.8); NEUTROPHILS % (AUTO) 92 % (42-75); PLATELET COUNT 126 10^3/uL (130-400); RED CELL DISTRIBUTION WIDTH 13.4 % (10.0-14.5); WHITE BLOOD COUNT 10.5 10^3/uL (4.3-11.0)
[2020-04-21 03:34] LABS: ALBUMIN 2.5 GM/DL (3.2-4.5)
[2020-04-21 03:35] LABS: CHLORIDE 109 MMOL/L (98-107); POTASSIUM 3.5 MMOL/L (3.6-5.0); SODIUM 139 MMOL/L (135-145)
[2020-04-21 03:36] LABS: CALCIUM 7.8 MG/DL (8.5-10.1)
[2020-04-21 03:37] LABS: GLUCOSE 126 MG/DL (70-105); TOTAL PROTEIN 4.5 GM/DL (6.4-8.2)
[2020-04-21 03:38] LABS: CARBON DIOXIDE 24 MMOL/L (21-32)
[2020-04-21 03:39] LABS: BILIRUBIN,TOTAL 2.5 MG/DL (0.1-1.0)
[2020-04-21 03:40] LABS: ALKALINE PHOSPHATASE 222 U/L (40-136)
[2020-04-21 03:41] LABS: CREATININE SERUM 0.56 MG/DL (0.60-1.30); GFR ESTIMATED > 60
[2020-04-21 03:42] LABS: BUN/CREATININE RATIO 14
[2020-04-21 03:43] LABS: ALANINE AMINOTRANSFERASE 58 U/L (0-55)
--- NOTE | 2020-04-21 07:52 | Diagnostic Imaging Report ---
EXAMINATION: Chest 1 view HISTORY: Sepsis. Fever. COMPARISON: Chest radiograph on 07/10/2019. FINDINGS: Prominent interstitial and alveolar opacities are seen in the perihilar regions bilaterally radiating into the lungs. The cardiac silhouette is prominent. A small right pleural effusion is seen. No large pneumothorax. No acute osseous abnormalities. IMPRESSION: 1. Prominent interstitial and alveolar opacities in the perihilar regions bilaterally, which may represent edema or infection. Components of atelectasis may also be present. 2. Cardiomegaly. 3. Small right pleural effusion. Dictated by: Dictated on workstation # [id number]
[2020-04-21] MEDS ORDERED: methylPREDNISolone 125 MG (Solu-MEDROL) VIAL IVP NR (09:00)
--- NOTE | 2020-04-21 09:34 | Diagnostic Imaging Report ---
EXAMINATION: CT head without contrast. TECHNIQUE: Multiple contiguous axial images were obtained through the brain without the use of intravenous contrast. All CT scans use one or more of the following dose optimizing techniques: automated exposure control, MA and/or KvP adjustment based on a patient size and exam type, or iterative reconstruction. HISTORY: Confusion. Left eye pain. COMPARISON: CT head on 02/23/2018. FINDINGS: No large acute territorial ischemia, mass, or hemorrhage. No midline shift or mass effect. Decreased attenuation is seen in the periventricular and subcortical white matter. The ventricles and cortical sulci are prominent. The basilar cisterns are patent and unremarkable. Right lens implant is noted. Paranasal sinuses are normal. Mastoid air cells are clear. No soft tissue abnormality is seen. No osseus lesions or fractures are seen. IMPRESSION: 1. No large acute territorial ischemia, mass, or hemorrhage. 2. Age-indeterminate microvascular disease. If indicated, consider MRI of the brain to further evaluate. 3. Generalized parenchymal volume loss. Dictated by: Dictated on workstation # [id number]
[2020-04-21] MEDS: ENOXAPARIN 40 MG/0.4 ML (LOVENOX) SYR SC SCH (09:41)
--- NOTE | 2020-04-21 09:47 | NUR ---
CT RESULTS GIVEN TO DR ALAMO.
--- NOTE | 2020-04-21 11:29 | Consultation - Surgery ---
RENETTAAYO MED STUDENT 04/21/20 1129: History of Present Illness History of Present Illness Patient Consulted On(braden/time) 04/21/20 11:24 Date Seen by Provider: Apr 21, 2020 Time Seen by Provider: 11:15 History of Present Illness Consult requested by Dr. Lacy. Pt appeared in mild discomfort with sharp pain originating from her L temporal area. Claims that she has had headaches for months but in the most recent weeks her symptoms have worsened. Pt denies any changes in vision, nausea, vomiting, or fever. Allergies and Home Medications Allergies Coded Allergies: Penicillins (Verified Allergy, Unknown, 07/10/19) Uncoded Allergies: NOVACAINE (Allergy, Mild, 09/07/09) red meat (Allergy, Mild, Vomiting, 04/18/20) Home Medications Cefdinir 300 Mg Capsule, 300 MG PO BID Prescribed by: NEGIN GUAJARDO on 04/19/20 1031 Cholecalciferol (Vitamin D3) 25 Mcg Tablet, 25 MCG PO DAILY, (Reported) Cholestyramine/Aspartame 4 Gm Powd.pack, 4 GM PO DAILY PRN for DIARRHEA Prescribed by: NEGIN GUAJARDO on 04/19/20 1042 Clonazepam 0.5 Mg Tablet, 0.5 MG PO HS PRN for RESTLESSNESS, (Reported) Turmeric/Turmeric Root Extract 1 Each Capsule, 1 EACH PO DAILY, (Reported) [Vitamin Pack] , 1 PACKET PO DAILY, (Reported) Past Lmzhuwj-Ygexiz-Nntuut Hx Patient Social History Alcohol Use: Denies Use Recreational Drug Use: No Smoking Status: Never a Smoker 2nd Hand Smoke Exposure: No Recent Foreign Travel: No Contact w/Someone Who Travel: No Recent Infectious Disease Expo: No Recent Hopitalizations: No Immunizations Up To Date Tetanus Booster (TDap): Unknown PED Vaccines UTD: No Date of Pneumonia Vaccine: Jul 12, 2011 Date of Influenza Vaccine: Aug 11, 2012 Seasonal Allergies Seasonal Allergies: No Surgeries History of Surgeries: Yes Surgeries: Lobectomy Respiratory History of Respiratory Disorde: No Cardiovascular History of Cardiac Disorders: Yes Cardiac Disorders: Hypertension Neurological History of Neurological Disord: No Reproductive System Hx Reproductive Disorders: No Sexually Transmitted Disease: No HIV/AIDS: No [employer] History: Menopausal Genitourinary History of Genitourinary Disor: No Genitourinary Disorders: UTI-Chronic Gastrointestinal History of Gastrointestinal Di: No Musculoskeletal History of Musculoskeletal Dis: Yes Musculoskeletal Disorders: Osteoporosis, Arthritis Endocrine History of Endocrine Disorders: No HEENT History of HEENT Disorders: No Loss of Vision: Denies Hearing Impairment: Denies Cancer History of Cancer: Yes Cancer: Lung Psychosocial History of Psychiatric Problem: Yes Behavioral Health Disorders: Anxiety Integumentary History of Skin or Integumenta: No Skin/Integumentary Disorders: Psoriasis Blood Transfusions History of Blood Disorders: No Family Medical History Significant Family History: Heart Disease, Hypertension Family Medial History: Cardiovascular disease 19 MOTHER Congenital disease 19 FATHER Review of Systems-General Constitutional: No chills, No diaphoresis EENTM: No blurred vision, No double vision Respiratory: No cough, No dyspnea on exertion Cardiovascular: No chest pain, No palpitations Gastrointestinal: No abdominal pain, No hematemesis Genitourinary: No decreased output, No discharge : No Musculoskeletal: No back pain, No joint pain Skin: No change in color, No change in hair/nails Psychiatric/Neurological: Anxiety, Headache (L temporal ) Physical Exam-General Problems Physical Exam Vital Signs Vital Signs - First Documented 04/20/20 04/21/20 22:10 00:10 Temp 37.7 Pulse 96 Resp 20 B/P (MAP) 113/68 (83) Pulse Ox 90 O2 Delivery Room Air O2 Flow Rate 2.00 Capillary Refill : Less Than 3 Seconds General Appearance: WD/WN, no apparent distress Eyes: Bilateral Eye Normal Inspection HEENT: PERRL/EOMI, normal ENT inspection Neck: non-tender, supple Respiratory: chest non-tender, no respiratory distress Cardiovascular: regular rate, rhythm, no gallop Gastrointestinal: non tender, soft Extremities: normal inspection, no calf tenderness Neurologic/Psychiatric: alert, normal mood/affect, oriented x 3 Skin: normal color, warm/dry Lymphatic: no adenopathy Data Review Labs Laboratory Tests 04/20/20 22:20: White Blood Count 6.3, Red Blood Count 3.61L, Hemoglobin 11.7, Hematocrit 34L, Mean Corpuscular Volume 94, Mean Corpuscular Hemoglobin 32, Mean Corpuscular Hemoglobin Concent 34, Red Cell Distribution Width 13.6, Platelet Count 143, Mean Platelet Volume 10.9H, Neutrophils (%) (Auto) 93H, Lymphocytes (%) (Auto) 2L, Monocytes (%) (Auto) 4, Eosinophils (%) (Auto) 2, Basophils (%) (Auto) 0, Neutrophils # (Auto) 5.9, Lymphocytes # (Auto) 0.1L, Monocytes # (Auto) 0.2, Eosinophils # (Auto) 0.1, Basophils # (Auto) 0.0, Neutrophils % (Manual) 91, Lymphocytes % (Manual) 3, Monocytes % (Manual) 5, Eosinophils % (Manual) 1, Blood Morphology Comment NORMAL, Prothrombin Time 13.4, INR Comment 1.0, Activated Partial Thromboplast Time 32, Sodium Level 139, Potassium Level 3.3L, Chloride Level 105, Carbon Dioxide Level 26, Anion Gap 8, Blood Urea Nitrogen 9, Creatinine 0.56L, Estimat Glomerular Filtration Rate > 60, BUN/Creatinine Ratio 16, Glucose Level 106H, Calcium Level 8.4L, Corrected Calcium 9.4, Magnesium Level 1.6, Total Bilirubin 1.9H, Aspartate Amino Transf (AST/SGOT) 41H, Alanine Aminotransferase (ALT/SGPT) 62H, Alkaline Phosphatase 242H, Total Protein 5.0L, Albumin 2.8L 04/20/20 22:52: Urine Color YELLOW, Urine Clarity CLEAR, Urine pH 6.5, Urine Specific [place] 1.010L, Urine Protein NEGATIVE, Urine Glucose (UA) NEGATIVE, Urine Ketones TRACEH, Urine Nitrite NEGATIVE, Urine Bilirubin NEGATIVE, Urine Urobilinogen 0.2, Urine Leukocyte Esterase NEGATIVE, Urine RBC (Auto) TRACE-I, Urine RBC 5- 10H, Urine WBC 5-10H, Urine Squamous Epithelial Cells 10-25H, Urine Crystals NONE, Urine Bacteria TRACE, Urine Casts NONE, Urine Mucus NEGATIVE, Urine Culture Indicated CULTURE PENDING 04/20/20 23:00: Lactic Acid Level 1.52 04/21/20 03:08: White Blood Count 10.5, Red Blood Count 3.35L, Hemoglobin 10.9L, Hematocrit 32L, Mean Corpuscular Volume 95, Mean Corpuscular Hemoglobin 33, Mean Corpuscular Hemoglobin Concent 34, Red Cell Distribution Width 13.4, Platelet Count 126L, Mean Platelet Volume 10.6H, Neutrophils (%) (Auto) 92H, Lymphocytes (%) (Auto) 1L, Monocytes (%) (Auto) 6, Eosinophils (%) (Auto) 1, Basophils (%) (Auto) 0, Neutrophils # (Auto) 9.7H, Lymphocytes # (Auto) 0.1L, Monocytes # (Auto) 0.6, Eosinophils # (Auto) 0.1, Basophils # (Auto) 0.0, Sodium Level 139, Potassium Level 3.5L, Chloride Level 109H, Carbon Dioxide Level 24, Anion Gap 6, Blood Urea Nitrogen 8, Creatinine 0.56L, Estimat Glomerular Filtration Rate > 60, BUN/Creatinine Ratio 14, Glucose Level 126H, Calcium Level 7.8L, Corrected Calcium 9.0, Total Bilirubin 2.5H, Aspartate Amino Transf (AST/SGOT) 40H, Alanine Aminotransferase (ALT/SGPT) 58H, Alkaline Phosphatase 222H, Total Protein 4.5L, Albumin 2.5L, B-Type Natriuretic Peptide 726.6H 04/21/20 11:15: Assessment/Plan Assessment/Plan Assessment/Plan Temporal arteritis Migraine Sinusitis Temporal artery biopsy If positive, initiate steroid treatment Clinical Quality Measures DVT/VTE Risk/Contraindication: Risk Factor Score Per Nursin RFS Level Per Nursing on Admit: 4+=Very High DIONISIO RODRIGUEZ DO 04/21/201957: History of Present Illness History of Present Illness History of Present Illness Consult requested for left temporal artery biopsy. Patient is an 85 year old female who was admitted for uti failed outpatient therapy. Patient states she has been having headaches on and off for about the last 3 months over the left temporal area. Over the last week the pain has increased and is constant. No radiation of pain. Nothing makes better. Nothing seems to make worse. Not having any visual changes. Patient denies any nausea or vomiting. Had ct head performed with: 1. No large acute territorial ischemia, mass, or hemorrhage. 2. Age-indeterminate microvascular disease. If indicated, consider MRI of the brain to further evaluate. 3. Generalized parenchymal volume loss. Allergies and Home Medications Allergies Coded Allergies: Penicillins (Verified Allergy, Unknown, 07/10/19) Uncoded Allergies: NOVACAINE (Allergy, Mild, 09/07/09) red meat (Allergy, Mild, Vomiting, 04/18/20) Home Medications Cefdinir 300 Mg Capsule, 300 MG PO BID Prescribed by: NEGIN GUAJARDO on 04/19/20 1031 Cholecalciferol (Vitamin D3) 25 Mcg Tablet, 25 MCG PO DAILY, (Reported) Cholestyramine/Aspartame 4 Gm Powd.pack, 4 GM PO DAILY PRN for DIARRHEA Prescribed by: NEGIN GUAJARDO on 04/19/20 1042 Clonazepam 0.5 Mg Tablet, 0.5 MG PO HS PRN for RESTLESSNESS, (Reported) Turmeric/Turmeric Root Extract 1 Each Capsule, 1 EACH PO DAILY, (Reported) [Vitamin Pack] , 1 PACKET PO DAILY, (Reported) Patient Home Medication List Home Medication List Reviewed: Yes Past Zscqttp-Ojaeac-Vyihjh Hx Reviewed Nursing Assessment Reviewed/Agree w Nursing PMH: Yes Family Medical History Significant Family History: No Pertinent Family Hx Family Medial History: Cardiovascular disease 19 MOTHER Congenital disease 19 FATHER Review of Systems-General Constitutional: No chills, No diaphoresis EENTM: No blurred vision, No double vision Respiratory: No cough, No dyspnea on exertion Cardiovascular: No chest pain, No palpitations Gastrointestinal: No abdominal pain, No hematemesis Genitourinary: No decreased output, No discharge : No Musculoskeletal: No back pain, No joint pain Skin: No change in color, No change in hair/nails Psychiatric/Neurological: Anxiety, Headache (L temporal ) All Other Systems Reviewed Negative Unless Noted: Yes (Negative excepted noted.) Physical Exam-General Problems Physical Exam General Appearance: WD/WN, no apparent distress HEENT: PERRL/EOMI, normal ENT inspection Neck: non-tender, supple Respiratory: chest non-tender, no respiratory distress, no accessory muscle use Cardiovascular: regular rate, rhythm, no edema Gastrointestinal: non tender, soft, no organomegaly Rectal: deferred Back: no CVA tenderness, no vertebral tenderness Extremities: normal inspection, no calf tenderness Neurologic/Psychiatric: alert, normal mood/affect, oriented x 3 Skin: normal color, warm/dry Lymphatic: no adenopathy Assessment/Plan Assessment/Plan Assessment/Plan Headache possilby temporal arteritis UTI We discussed risks and benefits of left temporal artery biopsy as has requested. Patient and family understand risks and benefits and they wish to proceed To be scheduled. Supervisory-Addendum Brief Verification & Attestation Participated in pt care: history, MDM, physical Personally performed: exam, history, MDM, supervision of care Care discussed with: Medical Student Procedures: n/a Results interpretation: Verified all documentation Verification and Attestation of Medical Student E/M Service A medical student performed and documented this service in my presence. I r eviewed and verified all information documented by the medical student and made modifications to such information, when appropriate. I personally performed the physical exam and medical decision making. Dionisio Rodriguez, Apr 21, 2020,20:04 AYO JACKSON MED STUDENT Apr 21, 2020 11:29 DIONISIO RODRIGUEZ DO Apr 21, 2020 19:58
[2020-04-21] MEDS ORDERED: GADOBUTROL 7.5 MMOL/7.5 ML (GADAVIST) VIAL IV ONE (12:00)
--- NOTE | 2020-04-21 12:17 | Diagnostic Imaging Report ---
PROCEDURE: MR imaging of the brain with and without contrast. TECHNIQUE: Multiplanar, multisequence MR imaging of the brain was performed with and without contrast. INDICATION: Pain behind left eye. COMPARISON: CT head without contrast 04/21/2020. FINDINGS: Advanced generalized cerebral and cerebellar parenchymal volume loss. Advanced T2 hyperintensities in the supratentorial white matter compatible with chronic small vessel ischemic change. 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 No restricted water diffusion or hemosiderin deposition. No abnormal intracranial enhancement. Normal morphology including the major midline structures, sella, posterior fossa and cerebellar pontine angle. No hydrocephalus or extra-axial fluid collections. Normal intracranial flow voids. Postoperative changes in the right globe. The orbits are otherwise unremarkable on this nondedicated exam. The paranasal sinuses and mastoids are clear. Normal bone marrow signal. IMPRESSION: 1. No acute intracranial MRI findings. 2. Advanced generalized parenchymal volume loss and chronic small vessel ischemic change is age appropriate. 3. 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 Dictated by: Dictated on workstation # [id number]
[2020-04-21] MEDS: methylPREDNISolone 125 MG (Solu-MEDROL) VIAL IVP SCH ×3 (12:24→23:01)
--- NOTE | 2020-04-21 14:10 | Physical Therapy Evaluation ---
PT Evaluation-General Medical Diagnosis Admission Date Apr 20, 2020 at 23:45 Medical Diagnosis: UTI/sepsis Onset Date: Apr 20, 2020 Therapy Diagnosis Therapy Diagnosis: debility/weakness Height/Weight Height (Feet): 5 Height (Inches): 6.00 Weight (Pounds): 190 Precautions Precautions/Isolations: Fall Prevention, Standard Precautions, Pressure Ulcer Referral Physician: Regino Reason for Referral: Evaluation/Treatment Medical History Pertinent Medical History: Arthritis, HTN Additional Medical History lung cancer Current History EMS secondary to chills and not feeling well (recent hospital stay for same reason) Reviewed History: Yes Social History Home: Single Level Current Living Status: Alone Prior Prior Level of Function SCALE: Activities may be completed with or without assistive devices. 2-Sgwrtcthnh-gbowuya completes the activity by him/herself with no assistance from a helper. 5-Set-up or Clean-up Assistance-helper sets up or cleans up; patient completes activity. [place] assists only prior to or following the activity. 4-Supervision or Touching Assistance-helper provides verbal cues and/or touching/steadying and/or contact guard assistance as patient completes activity. Assistance may be provided throughout the activity or intermittently. 3-Partial/Moderate Assistance-helper does LESS THAN HALF the effort. Roby lifts, holds or supports trunk or limbs, but provides less than half the effort. 2-Substantial/Maximal Assistance-helper does MORE THAN HALF the effort. Roby lifts or holds trunk or limbs and provides more than half the effort. 7-Xjurqrtcq-abmcho does ALL the effort. Patient does none of the effort to complete the activity. Or, the assistance of 2 or more helpers is required for the patient to complete the activity. If activity was not attempted, code reason: 7-Patient Refused. 9-Not Applicable-not attempted and the patient did not perform the activity before the current illness, exacerbation or injury. 10-Not Attempted due to Environmental Limitations-(lack of equipment, weather restraints, etc.). 88-Not Attempted due to Medical Conditions or Safety Concerns. Bed Mobility: 6 Transfers (B,C,W/C): 6 Gait: 6 Stairs: 6 Indoor Mobility (Ambulation): Independent Stairs: Independent Prior Devices Use: None PT Evaluation-Current Subjective Patient reports she is feeling better just very fatigued. Agrees to PT. Pain Numeric Pain Scale: 0-No Pain Location: No Pain Reported Objective Patient Orientation: Normal For Age Attachments: Oxygen, IV ROM/Strength ROM Lower Extremities bilateral LE WFL Strength Lower Extremities 4-/5 grossly bilateral LE Integumentary/Posture Integumentary refer to nursing notes Bowel Incontinence: No Bladder Incontinence: Yes (purwick) Posture slight trunk flexed posture Neuromuscular (Tone, Coordination, Reflexes) grossly intact Sensory Vision: Functional Hearing: Impaired Sensation Right Lower Extremit: Intact Sensation Left Lower Extremity: Intact Transfers Roll Left to Right (QC): 6 Lying to Sitting/Side of Bed(Q: 6 Sit to Stand (QC): 5 Chair/Rid-js-Aougs Xfer(QC): 5 Gait Does the Patient Walk?: Yes Mode of Locomotion: Walk Anticipated Mode of Locomotion: Walk Walk 10 feet (QC): 5 Walk 50 ft with 2 Turns(QC): 5 Walk 150 ft (QC): 5 Distance: 425' Gait Assistive Device: FWW Comments/Gait Description safe and functional with no deviation Wheelchair Training Does the Pt Use a Wheelchair?: No Balance Sitting Static: Normal Sitting Dynamic: Normal Standing Static: Normal Standing Dynamic: Normal Assessment/Needs 85 y.o. female, will be seen short term by skilled PT to address functional mobility to ensure safe return to home at maximum LOF. Rehab Potential: Fair PT Snf Goals Snf Goals PT Snf Goals Time Frame: May 01, 2020 Roll Left & Right (QC): 6 Sit to Lying (QC): 6 Lying-Sitting on Side/Bed(QC): 6 Sit to Stand (QC): 6 Chair/Cfw-nz-Bctsa Xfer(QC): 6 Toilet Transfer (QC): 6 Does the Patient Walk: Yes Walk 10 feet (QC): 6 Walk 50ft with 2 Turns (QC): 6 Walk 150 ft (QC): 6 PT Plan Problem List Problem List: Activity Tolerance, Safety, Balance, Gait, Transfer, Bed Mobility Treatment/Plan Treatment Plan: Continue Plan of Care Treatment Plan: Bed Mobility, Education, Functional Activity Sergio, Functional Strength, Gait, Safety, Therapeutic Exercise, Transfers Treatment Duration: May 01, 2020 Frequency: 6 times per week Estimated Hrs Per Day: .25 hour per day Patient and/or Family Agrees t: Yes Time/GCodes Time In: 1250 Time Out: 1314 Total Billed Treatment Time: 24 Total Billed Treatment 1 visit EVModC 14 min FA 10 min BRIANNE HAINES PT Apr 21, 2020 14:10
--- NOTE | 2020-04-21 15:24 | Occupational Therapy Eval ---
OT Evaluation-General/PLF Medical Diagnosis Admission Date Apr 20, 2020 at 23:45 Medical Diagnosis: UTI/sepsis Onset Date: Apr 20, 2020 Therapy Diagnosis Therapy Diagnosis: Decreased ADL status Height/Weight Height (Feet): 5 Height (Inches): 6.00 Weight (Pounds): 190 Precautions Precautions/Isolations: Fall Prevention, Standard Precautions, Pressure Ulcer Referral Physician: Regino Referral Reason: Activity Tolerance, Self Care, Evaluation/Treatment, Strengthening/ROM Medical History Pertinent Medical History: Arthritis, HTN Current History Pt at home with fever of 102.5, hypotension and tachycardia. Pt was d/c'd from [facility] 04/20 for cystitis. Reviewed History: Yes Social History Home: Single Level Current Living Status: Significant Other Entry Into Home: Stairs With Railing Steps Into Home: 3 ADL-Prior Level of Function SCALE: Activities may be completed with or without assistive devices. 6-Ifakwiorcf-ashbdnh completes the activity by him/herself with no assistance from a helper. 5-Set-up or Clean-up Assistance-helper sets up or cleans up; patient completes activity. [place] assists only prior to or following the activity. 4-Supervision or Touching Assistance-helper provides verbal cues and/or touching/steadying and/or contact guard assistance as patient completes activity. Assistance may be provided throughout the activity or intermittently. 3-Partial/Moderate Assistance-helper does LESS THAN HALF the effort. [place] lifts, holds or supports trunk or limbs, but provides less than half the effort. 2-Substantial/Maximal Assistance-helper does MORE THAN HALF the effort. [place] lifts or holds trunk or limbs and provides more than half the effort. 6-Ysrezhegj-ptginv does ALL the effort. Patient does none of the effort to complete the activity. Or, the assistance of 2 or more helpers is required for the patient to complete the activity. If activity was not attempted, code reason: 7-Patient Refused. 9-Not Applicable-not attempted and the patient did not perform the activity before the current illness, exacerbation or injury. 10-Not Attempted due to Environmental Limitations-(lack of equipment, weather restraints, etc.). 88-Not Attempted due to Medical Conditions or Safety Concerns. ADL PLOF Comments Pt states prior to last couple weeks she was IND without AD Since hospitalization, has needed to assist pt in transfers for safety. Self Care: Independent Functional Cognition: Independent DME/Equipment: Bath Chair, Grab Bars, Shower, Tub/Shower Occupation: retired. OT Current Status Subjective Nursing advised prior to OT entry. Pt seen in bed. Daughter present. Pt alert/ oriented. Pt denies pain, states fatigue. Mental Status/Objective Patient Orientation: Person, Place, Situation Current Glasses/Contacts: Yes Hand Dominance: Right Upper Extremity ROM WFL BUE Upper Extremity Coordination WFL BUE Upper Extremity Sensation WFL BUE Upper Extremity Strength WFL BUE (3+/5) ADL-Treatment Eating (QC): 5 (s/u per daughter. ) Other Treatments Pt agrees to OT. Pt educated on OT role. Pt eating upright in bed, daughter present. Pt provides hx and home environment, daughter corrects pt frequently on home env. Pt states 2 falls in past few months due to tripping. Pt states was not utilizing AD. Pt completes MMT/ ROM in bed. Daugther states pt's has been assisting in transfers, fx mob and toileting. Pt states she feels very weak, agrees to continued OT for higher fx IND. Pt left in room with all needs met, daughter present. Education OT Patient Education: Modified ADL techniques, Purpose of tx/functional activities, Safety issues Teaching Recipient: Patient Teaching Methods: Demonstration, Discussion Response to Teaching: Verbalize Understanding, Return Demonstration OT Penitentiary Goals Penitentiary Goals Time Frame: Apr 28, 2020 Eating (QC): 6 Oral Hygiene (QC): 6 Toileting Hygiene (QC): 4 Shower/Bathe Self (QC): 4 Upper Body Dressing (QC): 6 Lower Body Dressing (QC): 4 On/Off Footwear (QC): 4 Additional Goals: 1-Demonstrate ADL Tasks, 2-Verbalize Understanding, 3- ImproveStrength/Sergio 1=Demonstrate adherence to instructed precautions during ADL tasks. 2=Patient will verbalize/demonstrate understanding of assistive devices/modifications for ADL. 3=Patient will improve strength/tolerance for activity to enable patient to perform ADL's. OT Education/Plan Problem List/Assessment Assessment: Decreased Activ Tolerance, Decreased UE Strength, Dependent Transfers, Impaired Cognition, Impaired I ADL's, Impaired Self-Care Skills Discharge Recommendations Plan/Recommendations: Continue POC Therapy Discharge Recommendati: Intermittent Supervision, Home & Family Treatment Plan/Plan of Care Treatment,Training & Education: Yes Patient would benefit from OT for education, treatment and training to promote independence in ADL's, mobility, safety and/or upper extremity function for ADL's. Plan of Care: ADL Retraining, Caregiver Training, Functional Mobility, UE Funct Exercise/Act Treatment Duration: Apr 28, 2020 Frequency: 5 times per week Estimated Hrs Per Day: .25 hour per day Agreement: Yes Rehab Potential: Fair Time/GCodes Start Time: 12:27 Stop Time: 12:37 Total Time Billed (hr/min): 12 Billed Treatment Time 1, EVL (12) CHANA MURILLO OTR Apr 21, 2020 15:24
--- NOTE | 2020-04-21 16:32 | NUR ---
IRF Evaluation Determination: Denied Explanation: According PT Evaluation, patient is ambulating (425ft, FWW), transferring with set-up, as well as completing bed mobility with independence; therefore, patient does not require active and ongoing intervention of multiple therapy disciplines (PT,OT,BUTCHER CHICKEN AND FISH), at least one of which must be PT or OT. Thank you for this referral.
[2020-04-21] MEDS: GENTAMICIN IV SCH (20:48)
[2020-04-21] MEDS: NS IV SCH (20:48)
[2020-04-21] MEDS: LEVOFLOXACIN 500 MG/D5W 100 ML (PRE-MIX) IV SCH (20:50)
--- NOTE | 2020-04-21 21:18 | History & Physical ---
History of Present Illness History of Present Illness Reason for visit/HPI PT IS AN 85 Y/O FEMALE WHO IS WELL KNOWN TO ME FROM CLINIC. SHE WAS DISCHARGED FROM THE HOSPITAL ON 04/19/2020 FOR URINARY TRACT INFECTION . SHE WAS DISCHARGED ON ORAL ANTIBIOTICS, THAT SHE DID NOT TOLERATE AND STARTED TO HAVE SWELLING OF HER LEGS WITH RASH ON HER LOWER LEGS. SHE BECAME PROGRESSIVELY SHORT OF BREATH ON MONDAY EVENING AND SHE PRESENTED TO THE EMERGENCY DEPARTMENT WITH FEVER, CHILLS, AND CONFUSION. SHE WAS DIAGNOSED WITH SEPSIS AND ADMITTED TO CARDIAC STEPDOWN FOR CLOSE MONITORING. Date of Admission Apr 20, 2020 at 23:45 Date Seen by a Provider: Apr 21, 2020 Time Seen by a Provider: 08:10 Attending Physician Teresa Lacy MD Admitting Physician Teresa Lacy MD Consult Allergies and Home Medications Allergies Coded Allergies: Penicillins (Verified Allergy, Unknown, 07/10/19) Uncoded Allergies: NOVACAINE (Allergy, Mild, 09/07/09) red meat (Allergy, Mild, Vomiting, 04/18/20) Home Medications Cefdinir 300 Mg Capsule, 300 MG PO BID Prescribed by: NEGIN GUAJARDO on 04/19/20 1031 Cholecalciferol (Vitamin D3) 25 Mcg Tablet, 25 MCG PO DAILY, (Reported) Cholestyramine/Aspartame 4 Gm Powd.pack, 4 GM PO DAILY PRN for DIARRHEA Prescribed by: NEGIN GUAJARDO on 04/19/20 1042 Clonazepam 0.5 Mg Tablet, 0.5 MG PO HS PRN for RESTLESSNESS, (Reported) Turmeric/Turmeric Root Extract 1 Each Capsule, 1 EACH PO DAILY, (Reported) [Vitamin Pack] , 1 PACKET PO DAILY, (Reported) Patient Home Medication List Home Medication List Reviewed: Yes Past Kevahxk-Bzujpj-Chvprw Hx Past Med/Social Hx: Reviewed Nursing Past Med/Soc Hx, Reviewed and Corrections made Patient Social History Marrital Status: Living Status: LIVES AT HOME WITH SPOUSE IN [place] Employed/Student: retired Alcohol Use: Denies Use Recreational Drug Use: No Smoking Status: Never a Smoker 2nd Hand Smoke Exposure: No Physical Abuse Screen: No Sexual Abuse: No Recent Foreign Travel: No Contact w/other who traveled: No Recent Hopitalizations: No Recent Infectious Disease Expo: No Immunizations Up To Date Tetanus Booster (TDap): Unknown Pediatric: No Date of Pneumonia Vaccine: Jul 12, 2011 Date of Influenza Vaccine: Aug 11, 2012 Seasonal Allergies Seasonal Allergies: No Past Medical History Surgeries: Lobectomy Currently Using CPAP: No Currently Using BIPAP: No Reproductive: No Sexually Transmitted Disease: No HIV/AIDS: No Menopausal Genitourinary: UTI-Chronic Musculoskeletal: Osteoporosis, Arthritis Loss of Vision: Denies Hearing Impairment: Hard of Hearing Cancer: Lung Did You Recieve Any Treatments: Yes What Type of Treatment Did You: Surgical Intervention Psychosocial: Anxiety Skin/Integumentary: Psoriasis History of Blood Disorders: No Family History Reviewed Nursing Family Hx Cardiovascular disease 19 MOTHER Congenital disease 19 FATHER Heart Disease, Hypertension Review of Systems Constitutional: chills; No diaphoresis, No fever; malaise, weakness EENTM: hearing loss; No hoarseness, No throat pain Respiratory: No cough, No dyspnea on exertion; short of breath Cardiovascular: No chest pain Gastrointestinal: No abdominal pain, No constipation; diarrhea; No loss of appetite Genitourinary: no symptoms reported Musculoskeletal: No back pain; joint pain, muscle weakness Skin: rash (ON LOWER LEGS) Psychiatric/Neurological: Anxiety, Headache, Weakness Physical Exam Vital Signs Vital Signs - First Documented 04/20/20 04/21/20 22:10 00:10 Temp 37.7 Pulse 96 Resp 20 B/P (MAP) 113/68 (83) Pulse Ox 90 O2 Delivery Room Air O2 Flow Rate 2.00 Capillary Refill : Less Than 3 Seconds Height, Weight, BMI Height: 5'6.00" Weight: 190lbs. oz. 86.251489wy; 28.97 BMI Method:Stated General Appearance: No Apparent Distress, WD/WN Eyes: Bilateral Eye Normal Inspection, Bilateral Eye PERRL, Bilateral Eye EOMI HEENT: PERRL/EOMI, Pharynx Normal Neck: Full Range of Motion, Supple Respiratory: Chest Non Tender, Crackles (IN BASES), Decreased Breath Sounds (IN BASES), Wheezing (FAINT) Cardiovascular: Regular Rate, Rhythm, Normal Peripheral Pulses, Other (EDEMA BILATERAL LOWER LEGS) Gastrointestinal: Normal Bowel Sounds, No Organomegaly, No Pulsatile Mass, Non Tender, Soft Rectal: Deferred Back: Normal Inspection, No Vertebral Tenderness Extremity: Normal Capillary Refill, Normal Inspection, Normal Range of Motion, Non Tender, No Calf Tenderness, Pedal Edema Neurologic/Psychiatric: Alert, No Motor/Sensory Deficits, Normal Mood/Affect, 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-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 Norm as Tested, Other (ORIENTED TO PERSON, PLACE, NOT TIME) Skin: Erythema (BILATERAL LOWER LEGS MEDIALLY AND ANTERIORLY) Lymphatic: No Adenopathy Assessment/Plan Assessment and Plan SEPSIS DUE TO URINARY TRACT INFECTION SEPTIC SHOCK WITH HYPOTENSION ELEVATED LIVER ENZYMES DUE TO SHOCK PULMONARY EDEMA EDEMA RESTLESS LEG SYNDROME POSSIBLE PNEUMONIA POST HOSPITALIZATION HYPOKALEMIA ELEVATED BNP LEFT TEMPORAL PAIN LEFT FRONTAL HEADACHE CONFUSION SEPSIS DUE TO URINARY TRACT INFECTION AND SEPTIC SHOCK WITH HYPOTENSION AND ELEVATED LIVER ENZYMES DUE TO SHOCK - PT ADMITTED TO HOSPITAL, STARTED ON SEPTIC SHOCK PROTOCOL WITH IV FLUIDS, IV PRESSORS, PT SHOWING IMPROVEMENT ON MY EVALUATION THIS MORNING. - DISCUSSED CASE WITH HER DTR - WILL CONTINUE WITH IV ANTIBIOTICS FOR AT LEAST THE NEXT 5 DAYS DUE TO THE RECURRENT NATURE OF HER ILLNESS DESPITE APPROPRIATE ANTIBIOTIC THERAPY IV AND ORALLY ON PRIOR ADMISSION AND DISCHARGE TO HOME. - PT NOW OFF OF PRESSOR THERAPY. PULMONARY EDEMA - SMALL DOSE OF IV LASIX, MONITOR OUTPUT. EDEMA - SHOULD IMPROVE WITH COMPRESSION AND LASIX AND ELEVATION OF LEGS. RESTLESS LEG SYNDROME - WORST SYMPTOMS AT HS - CONTINUE WITH PRN CLONAZEPAM USE AND USE SCD'S SINCE THIS SEEMS TO HELP HER SYMPTOMS THE BEST. POSSIBLE PNEUMONIA POST HOSPITALIZATION - REPEAT CXR TOMORROW - CONTINUE WITH IV ANTIBIOTICS HYPOKALEMIA - REPLACED WITH IV - REPEAT LABS TOMORROW MORNING. ELEVATED BNP - LASIX IV LEFT TEMPORAL PAIN - LEFT FRONTAL HEADACHE - CONSULT TO DR. RODRIGUEZ - CHECK ESR, CRP - PLANNING ON TEMPORAL BIOPSY SOON DR. RODRIGUEZ CAN GET HER ON HIS SCHEDULE. - STEROIDS INITIATED IV CONFUSION - DISCUSSED WITH HER DTR - DUE TO HER HEADACHE, AND CONFUSION - WILL CHECK CT OF HEAD, IF NEGATIVE FOR ACUTE BLEED, WILL PROCEED WITH MRI - DVT PROPHYLAXIS WITH LOVENOX AND SCD'S CONSULT TO INPT REHAB FOR STRENGTHENING DUE TO HER WEAKNESS - PT AND OT STARTED WELL. DR. GUAJARDO WILL BE PROGRESS MAN FOR ME FOR THE NEXT FEW DAYS - PT AND FAMILY AWARE OF HIS TAKING OVER HER CARE WHILE I AM GONE FROM THE HOSPITAL. Admission Diagnosis SEPSIS DUE TO URINARY TRACT INFECTION SEPTIC SHOCK WITH HYPOTENSION ELEVATED LIVER ENZYMES DUE TO SHOCK PULMONARY EDEMA EDEMA RESTLESS LEG SYNDROME POSSIBLE PNEUMONIA POST HOSPITALIZATION HYPOKALEMIA ELEVATED BNP LEFT TEMPORAL PAIN LEFT FRONTAL HEADACHE Admission Status: Inpatient Order (span 2 midnights) Reason for Inpatient Admission: INPATIENT ADMISSION FOR SEPSIS -WILL REQUIRE AT LEAST 3-5 DAYS ON IV ANTIBIOTICS Clinical Quality Measures DVT/VTE Risk/Contraindication: Risk Factor Score Per Nursin RFS Level Per Nursing on Admit: 4+=Very High TERESA LACY MD Apr 21, 2020 21:18
[2020-04-21] MEDS: PHARMACY TO DOSE IV SCH (21:20)
[2020-04-21] MEDS ORDERED: FUROSEMIDE 40 MG/4 ML INJ (LASIX) IVP ONE (21:30)
[2020-04-21] MEDS: clonazePAM 0.5 MG (KlonoPIN) TAB PO PRN (22:40)
[2020-04-22] VITALS (9 sets, daily range): BP systolic 123–154; BP diastolic 59–96
[2020-04-22] MEDS: 1/2 NS W/KCL 20 MEQ/L 1,000 ML IV SCH ×2 (00:13→05:43)
[2020-04-22 03:36] LABS: HEMOGLOBIN 11.1 G/DL (11.5-16.0); MEAN PLATELET VOLUME 11.4 FL (7.4-10.4); WHITE BLOOD COUNT 7.6 10^3/uL (4.3-11.0)
[2020-04-22 03:58] LABS: ALANINE AMINOTRANSFERASE 54 U/L (0-55); ALBUMIN 2.6 GM/DL (3.2-4.5); ALKALINE PHOSPHATASE 196 U/L (40-136); BILIRUBIN,TOTAL 1.9 MG/DL (0.1-1.0); BUN/CREATININE RATIO 17; CARBON DIOXIDE 24 MMOL/L (21-32); CHLORIDE 107 MMOL/L (98-107); CREATININE SERUM 0.59 MG/DL (0.60-1.30); GFR ESTIMATED > 60; GLUCOSE 123 MG/DL (70-105); POTASSIUM 3.9 MMOL/L (3.6-5.0); SODIUM 138 MMOL/L (135-145); TOTAL PROTEIN 4.9 GM/DL (6.4-8.2)
[2020-04-22] MEDS: methylPREDNISolone 125 MG (Solu-MEDROL) VIAL IVP SCH ×4 (04:52→23:32)
--- NOTE | 2020-04-22 08:11 | Diagnostic Imaging Report ---
INDICATION: Septic shock and urinary tract infection. Time of exam: 3:42 AM Correlation is made with prior chest from 04/20/2020. Heart is enlarged. There are changes of congestive failure, similar to slightly increased when compared with 2 days earlier. No significant effusion is seen. There is no pneumothorax. IMPRESSION: Findings consistent with congestive failure. Dictated by: Dictated on workstation # [id number]
--- NOTE | 2020-04-22 09:00 | Physical Therapy Daily Note ---
PT Daily Note-Current Subjective Patient in recliner pre tx, agrees to PT, has no complaints of pain. Appearance Patient BTB post tx with nurse call, phone ,tray, all needs met. Mental Status Patient Orientation: Person, Place, Situation Transfers SCALE: Activities may be completed with or without assistive devices. 5-Hojudqcahy-gdlwnvk completes the activity by him/herself with no assistance from a helper. 5-Set-up or Clean-up Assistance-helper sets up or cleans up; patient completes activity. [place] assists only prior to or following the activity. 4-Supervision or Touching Assistance-helper provides verbal cues and/or touching/steadying and/or contact guard assistance as patient completes activity. Assistance may be provided throughout the activity or intermittently. 3-Partial/Moderate Assistance-helper does LESS THAN HALF the effort. [place] lifts, holds or supports trunk or limbs, but provides less than half the effort. 2-Substantial/Maximal Assistance-helper does MORE THAN HALF the effort. [place] lifts or holds trunk or limbs and provides more than half the effort. 1-Ffypuehko-mgsktu does ALL the effort. Patient does none of the effort to complete the activity. Or, the assistance of 2 or more helpers is required for the patient to complete the activity. If activity was not attempted, code reason: 7-Patient Refused. 9-Not Applicable-not attempted and the patient did not perform the activity before the current illness, exacerbation or injury. 10-Not Attempted due to Environmental Limitations-(lack of equipment, weather restraints, etc.). 88-Not Attempted due to Medical Conditions or Safety Concerns. Roll Left & Right (QC): 6 Sit to Lying (QC): 4 Sit to Stand (QC): 3 Chair/Wiv-pd-Qtluf Xfer(QC): 4 SBA for transfers, SBA for sit to supine (patient has difficulty getting both legs into bed but can do it without assist), min assist for sit to stand Gait Training Distance: 400' Walk 10 feet (QC): 4 Walk 50 ft with 2 Turns(QC): 4 Walk 150 ft (QC): 4 Gait Persons Needed: 1 Gait Assistive Device: FWW SBA, slow but steady ambulation Treatments ambulation, transfers Assessment Current Status: Fair Progress improving functional mobility PT Loan And Credit Manager Goals Prison Goals PT Prison Goals Time Frame: May 01, 2020 Roll Left & Right (QC): 6 Sit to Lying (QC): 6 Lying-Sitting on Side/Bed(QC): 6 Sit to Stand (QC): 6 Chair/Lvf-dp-Ewxcj Xfer(QC): 6 Toilet Transfer (QC): 6 Does the Patient Walk: Yes Walk 10 feet (QC): 6 Walk 50ft with 2 Turns (QC): 6 Walk 150 ft (QC): 6 PT Plan Problem List Problem List: Activity Tolerance, Functional Strength, Safety, Balance, Gait, Transfer, Bed Mobility Treatment/Plan Treatment Plan: Continue Plan of Care Treatment Plan: Bed Mobility, Education, Functional Activity Sergio, Functional Strength, Gait, Safety, Therapeutic Exercise, Transfers Treatment Duration: May 01, 2020 Frequency: 6 times per week Estimated Hrs Per Day: .25 hour per day Patient and/or Family Agrees t: Yes Safety Risks/Education Patient Education: Gait Training, Transfer Techniques, Correct Positioning, Sa fety Issues Teaching Recipient: Patient Teaching Methods: Demonstration, Discussion Response to Teaching: Reinforcement Needed Time/GCodes Time In: 0844 Time Out: 08 Total Billed Treatment Time: 10 Total Billed Treatment 1 visit GT 10' LENORE VELAZQUEZ PT Apr 22, 2020 09:00
--- NOTE | 2020-04-22 11:15 | Occupational Ther Daily Note ---
OT Current Status-Daily Note Subjective Nursing clears OT tx. Pt seen in bed, denies pain. Pt alert/ oriented. present start of session. Mental Status/Objective Patient Orientation: Normal For Age Attachments: SCD's, Telemetry, Other-See Comments (mary epstein) ADL-Treatment Therapy Code Descriptions/Definitions Functional [place] Measure: 0=Not Assessed/NA 4=Minimal Assistance 1=Total Assistance 5=Supervision or Setup 2=Maximal Assistance 6=Modified [place] 3=Moderate Assistance 7=Complete IndependenceSCALE: Activities may be completed with or without assistive devices. 7-Yvozgkkcjl-ehwsiaa completes the activity by him/herself with no assistance from a helper. 5-Set-up or Clean-up Assistance-helper sets up or cleans up; patient completes activity. [place] assists only prior to or following the activity. 4-Supervision or Touching Assistance-helper provides verbal cues and/or touching/steadying and/or contact guard assistance as patient completes activity. Assistance may be provided throughout the activity or intermittently. 3-Partial/Moderate Assistance-helper does LESS THAN HALF the effort. [place] lifts, holds or supports trunk or limbs, but provides less than half the effort. 2-Substantial/Maximal Assistance-helper does MORE THAN HALF the effort. [place] lifts or holds trunk or limbs and provides more than half the effort. 5-Zjqvgkvyu-inrjpy does ALL the effort. Patient does none of the effort to complete the activity. Or, the assistance of 2 or more helpers is required for the patient to complete the activity. If activity was not attempted, code reason: 7-Patient Refused. 9-Not Applicable-not attempted and the patient did not perform the activity before the current illness, exacerbation or injury. 10-Not Attempted due to Environmental Limitations-(lack of equipment, weather restraints, etc.). 88-Not Attempted due to Medical Conditions or Safety Concerns. Eating (QC): 6 Bathing Location: L Arm, R Arm, L Upper Leg, R Upper Leg, L Lower Leg (including foot), R Lower Leg (including foot), Chest, Abdomen, Buttocks, Perineal Area Shower/Bathe Self (QC): 4 (SBA EOB/ in stance during bathing. Pt reaches all areas, bends from EOB and reaches feet- no LOB/ dizziness.) Upper Body Dressing (QC): 5 Lower Body Dressing (QC): 3 (min A due to breif donning.) On/Off Footwear: 6 (SBA, though completes with IND.) Toileting Hygiene (QC): 4 (SBA) Other Treatment Pt bed mob with SBA. Reaches EOB and completes all bathing with SBA and s/u. Pt sit to stand without use of walker for stability and reaches bottom/ marj area for cleaning with good balance/ SBA. Skilled cues for safety and energy conservation. Pt returns to sit, completes dressing as outlined. No c/o pain. Pt returns to supine with SBA and increased time. Pt's pure wick placed. All needs met, call light in reach, pt remains supine in bed, pt's returns. Education OT Patient Education: Correct positioning, Modified ADL techniques, Progress toward Goal/Update tx plan, Purpose of tx/functional activities, Safety issues Teaching Recipient: Patient Teaching Methods: Demonstration, Discussion Response to Teaching: Verbalize Understanding, Return Demonstration OT Skilled Nursing Goals Teacher Adult Education Goals Time Frame: Apr 28, 2020 Eating (QC): 6 Oral Hygiene (QC): 6 Toileting Hygiene (QC): 4 Shower/Bathe Self (QC): 4 Upper Body Dressing (QC): 6 Lower Body Dressing (QC): 4 On/Off Footwear (QC): 4 Additional Goals: 1-Demonstrate ADL Tasks, 2-Verbalize Understanding, 3- ImproveStrength/Sergio 1=Demonstrate adherence to instructed precautions during ADL tasks. 2=Patient will verbalize/demonstrate understanding of assistive devices /modifications for ADL. 3=Patient will improve strength/tolerance for activity to enable patient to perform ADL's. OT Education/Plan Problem List/Assessment Assessment: Decreased Activ Tolerance, Edema, Impaired I ADL's, Impaired Self- Care Skills Discharge Recommendations Plan/Recommendations: Continue POC Therapy Discharge Recommendati: Home & Family Treatment Plan/Plan of Care Treatment,Training & Education: Yes Patient would benefit from OT for education, treatment and training to promote independence in ADL's, mobility, safety and/or upper extremity function for ADL's. Plan of Care: ADL Retraining, Caregiver Training, Functional Mobility, UE Funct Exercise/Act Treatment Duration: Apr 28, 2020 Frequency: 5 times per week Estimated Hrs Per Day: .25 hour per day Agreement: Yes Rehab Potential: Fair Time/GCodes Start Time: 10:18 Stop Time: 10:44 Total Time Billed (hr/min): 26 Billed Treatment Time 1, ADL 2 (26) CHANA MURILLO OTR Apr 22, 2020 11:15
--- NOTE | 2020-04-22 11:16 | Progress Note - Surgery ---
RENETTAAYO MED STUDENT 04/22/20 1116: Subjective Date Seen by a Provider: Apr 22, 2020 Time Seen by a Provider: 08:20 Subjective/Events-last exam Pt comfortable and claims pain has improved. States headaches usually wax and wane like this. No other complaints at this time. CRP elevated indicative of possible temporal arteritis. Urine cultures negative and wbc count decreased. Denies n/v, fever, chills, sob, chest pain, vision changes. Focused Exam Lactate Level 04/20/20 23:00: Lactic Acid Level 1.52 Time of Focused Exam: 23:49 Objective Exam Vital Signs Date Time Temp Pulse Resp B/P (MAP) Pulse Ox O2 Delivery O2 Flow Rate FiO2 04/22/20 08:49 Nasal Cannula 2.00 04/22/20 08:00 36.8 04/22/20 08:00 Room Air 04/22/20 06:48 76 04/22/20 06:00 80 21 93 Room Air 04/22/20 05:00 71 21 139/82 (101) Room Air 04/22/20 04:15 37.0 04/22/20 04:00 64 24 144/84 (104) 97 Room Air 04/22/20 03:08 Room Air 04/22/20 03:00 54 21 154/81 (105) 97 Room Air 04/22/20 02:00 57 12 131/72 (91) 96 Room Air 04/22/20 01:00 80 04/22/20 01:00 75 20 137/73 (94) 97 Room Air 04/22/20 00:00 68 20 134/96 (109) 96 Room Air 04/21/20 23:10 Room Air 04/21/20 23:02 36.6 04/21/20 23:00 82 15 152/91 (111) 95 Room Air 04/21/20 22:00 64 16 131/76 (94) 92 Room Air 04/21/20 21:00 74 23 138/66 (90) 92 Room Air 04/21/20 20:01 Nasal Cannula 2.00 04/21/20 20:00 67 15 132/70 (90) 96 Room Air 04/21/20 19:32 Nasal Cannula 2.00 04/21/20 19:32 37.1 04/21/20 19:00 65 14 123/82 (96) 94 Room Air 04/21/20 19:00 64 04/21/20 16:32 37.1 04/21/20 16:00 67 16 118/70 (86) 94 Nasal Cannula 2.00 04/21/20 15:53 Room Air 04/21/20 12:50 66 04/21/20 12:33 Nasal Cannula 2.00 04/21/20 12:26 36.9 04/21/20 12:15 130/83 (99) Nasal Cannula 2.00 I & O 04/22/20 07:00 Intake Total 5820 ml Output Total 1200 ml Balance 4620 ml Capillary Refill : Less Than 3 Seconds General Appearance: No Apparent Distress, WD/WN HEENT: PERRL/EOMI, Pharynx Normal Neck: Full Range of Motion, Supple Respiratory: Chest Non Tender, Crackles (IN BASES), Decreased Breath Sounds (IN BASES), Wheezing (FAINT) Cardiovascular: Regular Rate, Rhythm, Normal Peripheral Pulses, Other (EDEMA BILATERAL LOWER LEGS) Peripheral Pulses: 2+ Radial Pulses (R), 2+ Radial Pulses (L) Gastrointestinal: non tender, soft, no organomegaly Extremity: Normal Capillary Refill, Normal Inspection, Normal Range of Motion, Non Tender, No Calf Tenderness, Pedal Edema Neurologic/Psychiatric: Alert, No Motor/Sensory Deficits, Normal Mood/Affect, 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 as Tested, Other (ORIENTED TO PERSON, PLACE, NOT TIME) Skin: Erythema (BILATERAL LOWER LEGS MEDIALLY AND ANTERIORLY) Lymphatic: No Adenopathy Results Lab Laboratory Tests 04/21/20 11:15: Erythrocyte Sedimentation Rate 8, C-Reactive Protein High Sensitivity 15.75H, Random Gentamicin Level 2.1 04/22/20 02:54: White Blood Count 7.6, Red Blood Count 3.48L, Hemoglobin 11.1L, Hematocrit 33L, Mean Corpuscular Volume 95, Mean Corpuscular Hemoglobin 32, Mean Corpuscular Hemoglobin Concent 34, Red Cell Distribution Width 14.0, Platelet Count 136, Mean Platelet Volume 11.4H, Sodium Level 138, Potassium Level 3.9, Chloride Level 107, Carbon Dioxide Level 24, Anion Gap 7, Blood Urea Nitrogen 10, Creatinine 0.59L, Estimat Glomerular Filtration Rate > 60, BUN/Creatinine Ratio 17, Glucose Level 123H, Calcium Level 8.0L, Corrected Calcium 9.1, Total Bilirubin 1.9H, Aspartate Amino Transf (AST/SGOT) 32, Alanine Aminotransferase (ALT/SGPT) 54, Alkaline Phosphatase 196H, Total Protein 4.9L, Albumin 2.6L Microbiology 04/21/20 MRSA Screen - Final, Complete MRSA not isolated 04/20/20 Blood Culture - Preliminary, Resulted No growth 04/20/20 Urine Culture - Preliminary, Resulted NO GROWTH Assessment/Plan Assessment/Plan Assessment/Plan Headache possibly temporal arteritis UTI We discussed risks and benefits of left temporal artery biopsy as has requested. Patient and family understand risks and benefits and they wish to proceed To be scheduled. Clinical Quality Measures DVT/VTE Risk/Contraindication: Risk Factor Score Per Nursin RFS Level Per Nursing on Admit: 4+=Very High DIONISIO GONZALES DO 04/22/202115: Subjective Subjective/Events-last exam Patient headache slightly improved. Comes and goes. No other complaints at this time. Denies n/v fever sweats chills shortness of breath or chest pain. 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 Patient and family understand risks and benefits and they wish to proceed To be scheduled for tomorrow NPO after midnight consent Supervisory-Addendum Brief Verification & Attestation Participated in pt care: history, MDM, physical Personally performed: exam, history, MDM, supervision of care Care discussed with: Medical Student Procedures: n/a Results interpretation: Verified all documentation Verification and Attestation of Medical Student E/M Service A medical student performed and documented this service in my presence. I reviewed and verified all information documented by the medical student and made modifications to such information, when appropriate. I personally performed the physical exam and medical decision making. Dionisio Gonzales, Apr 22, 2020,21:16 AYO JACKSON STUDENT Apr 22, 2020 11:16 DIONISIO GONZALES DO Apr 22, 2020 21:16
--- NOTE | 2020-04-22 15:26 | Progress Note ---
Subjective Subjective Date Seen by Provider: Apr 22, 2020 Time Seen by Provider: 06:05 No overnight events Pt reports she is okay with doing the temporal artery biopsy. BNP was elevated- IVF stopped and 20 lasix given. Review of Systems General: No Chills, No Night Sweats HEENT: Head Aches Pulmonary: No Dyspnea, No Cough Cardiovascular: No: Chest Pain Gastrointestinal: No: Nausea, Vomiting Musculoskeletal: No: neck pain, shoulder pain Neurological: Weakness All Other Systems Reviewed All Other Systems Reviewed: Yes (Negative excepted noted.) Objective Exam Vital Signs Vital Signs Date Time Temp Pulse Resp B/P (MAP) Pulse Ox O2 Delivery O2 Flow Rate FiO2 04/22/20 12:44 86 04/22/20 12:11 Room Air 04/22/20 12:00 37.0 04/22/20 11:00 68 27 123/59 (80) 95 Room Air 04/22/20 08:49 Nasal Cannula 2.00 04/22/20 08:00 36.8 04/22/20 08:00 Room Air 04/22/20 06:48 76 04/22/20 06:00 80 21 93 Room Air 04/22/20 05:00 71 21 139/82 (101) Room Air 04/22/20 04:15 37.0 04/22/20 04:00 64 24 144/84 (104) 97 Room Air 04/22/20 03:08 Room Air 04/22/20 03:00 54 21 154/81 (105) 97 Room Air 04/22/20 02:00 57 12 131/72 (91) 96 Room Air 04/22/20 01:00 80 04/22/20 01:00 75 20 137/73 (94) 97 Room Air 04/22/20 00:00 68 20 134/96 (109) 96 Room Air 04/21/20 23:10 Room Air 04/21/20 23:02 36.6 04/21/20 23:00 82 15 152/91 (111) 95 Room Air 04/21/20 22:00 64 16 131/76 (94) 92 Room Air 04/21/20 21:00 74 23 138/66 (90) 92 Room Air 04/21/20 20:01 Nasal Cannula 2.00 04/21/20 20:00 67 15 132/70 (90) 96 Room Air 04/21/20 19:32 Nasal Cannula 2.00 04/21/20 19:32 37.1 04/21/20 19:00 65 14 123/82 (96) 94 Room Air 04/21/20 19:00 64 04/21/20 16:32 37.1 04/21/20 16:00 67 16 118/70 (86) 94 Nasal Cannula 2.00 04/21/20 15:53 Room Air I & O 04/22/20 07:00 Intake Total 5820 ml Output Total 1200 ml Balance 4620 ml General Appearance: No Apparent Distress, WD/WN Eyes: Bilateral Eye Normal Inspection, Bilateral Eye PERRL, Bilateral Eye EOMI HEENT: PERRL/EOMI, Pharynx Normal Neck: Full Range of Motion, Supple Respiratory: Chest Non Tender, Crackles (IN BASES), Decreased Breath Sounds (IN BASES), Wheezing (FAINT) Cardiovascular: Regular Rate, Rhythm, Normal Peripheral Pulses, Other (EDEMA BILATERAL LOWER LEGS) Gastrointestinal: Normal Bowel Sounds, No Organomegaly, No Pulsatile Mass, Non Tender, Soft Rectal: Deferred Back: Normal Inspection, No Vertebral Tenderness Extremity: Normal Capillary Refill, Normal Inspection, Normal Range of Motion, Non Tender, No Calf Tenderness, Pedal Edema Neurologic/Psychiatric: Alert, No Motor/Sensory Deficits, Normal Mood/Affect, 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 as Tested, Other (ORIENTED TO PERSON, PLACE) Skin: Erythema (BILATERAL LOWER LEGS MEDIALLY AND ANTERIORLY) Lymphatic: No Adenopathy Results Lab Laboratory Tests 04/22/20 02:54: White Blood Count 7.6, Red Blood Count 3.48L, Hemoglobin 11.1L, Hematocrit 33L, Mean Corpuscular Volume 95, Mean Corpuscular Hemoglobin 32, Mean Corpuscular Hemoglobin Concent 34, Red Cell Distribution Width 14.0, Platelet Count 136, Mean Platelet Volume 11.4H, Sodium Level 138, Potassium Level 3.9, Chloride Level 107, Carbon Dioxide Level 24, Anion Gap 7, Blood Urea Nitrogen 10, Creatinine 0.59L, Estimat Glomerular Filtration Rate > 60, BUN/Creatinine Ratio 17, Glucose Level 123H, Calcium Level 8.0L, Corrected Calcium 9.1, Total Bilirubin 1.9H, Aspartate Amino Transf (AST/SGOT) 32, Alanine Aminotransferase (ALT/SGPT) 54, Alkaline Phosphatase 196H, Total Protein 4.9L, Albumin 2.6L Microbiology 04/21/20 MRSA Screen - Final, Complete MRSA not isolated 04/20/20 Blood Culture - Preliminary, Resulted No growth 04/20/20 Urine Culture - Preliminary, Resulted NO GROWTH Assessment/Plan Assessment/Plan Assessment and Plan 04/22/20- surgery planning to do the temporal artery biopsy. -treating for pneumonia -she is on steroids as well. -hypokalemia improved. Dispo: continue to monitor- pt has improved. Problems: (1) Pneumonia (2) Sepsis Qualifiers: Qualified Codes: A41.9 - Sepsis, unspecified organism (3) RLS (restless legs syndrome) (4) Headache (5) Hypokalemia Clinical Quality Measures DVT/VTE Risk/Contraindication: Risk Factor Score Per Nursin RFS Level Per Nursing on Admit: 4+=Very High NEGIN GUAJARDO MD Apr 22, 2020 15:26
[2020-04-22] MEDS ORDERED: LORazepam INJ 2 MG/ML (ATIVAN) VIAL ONE (18:39)
[2020-04-22] MEDS: clonazePAM 0.5 MG (KlonoPIN) TAB PO PRN (21:42)
[2020-04-22] MEDS ORDERED: GENTAMICIN 40 MG/ML 2 ML INJ SDV ONE ×2 (23:14→23:18)
[2020-04-22] MEDS ORDERED: NS (IVPB) 100 ML ONE (23:18)
[2020-04-22] MEDS: NS IV SCH (23:31)
[2020-04-22] MEDS: GENTAMICIN IV SCH (23:31)
[2020-04-22] MEDS: LEVOFLOXACIN 500 MG/D5W 100 ML (PRE-MIX) IV SCH (23:32)
[2020-04-22] MEDS: PHARMACY TO DOSE IV SCH (23:32)
[2020-04-23] VITALS (8 sets, daily range): BP systolic 138–167; BP diastolic 68–84
[2020-04-23] MEDS: LORazepam INJ 2 MG/ML (ATIVAN) VIAL IVP PRN (03:15)
[2020-04-23 04:07] LABS: HEMOGLOBIN 11.5 G/DL (11.5-16.0); MEAN PLATELET VOLUME 12.8 FL (7.4-10.4); RED CELL DISTRIBUTION WIDTH 14.1 % (10.0-14.5); WHITE BLOOD COUNT 8.7 10^3/uL (4.3-11.0)
[2020-04-23 04:20] LABS: ALANINE AMINOTRANSFERASE 50 U/L (0-55); ALBUMIN 2.6 GM/DL (3.2-4.5); ALKALINE PHOSPHATASE 162 U/L (40-136); BILIRUBIN,TOTAL 0.9 MG/DL (0.1-1.0); BUN/CREATININE RATIO 28; CALCIUM 8.2 MG/DL (8.5-10.1); CARBON DIOXIDE 21 MMOL/L (21-32); CHLORIDE 107 MMOL/L (98-107); CREATININE SERUM 0.54 MG/DL (0.60-1.30); GFR ESTIMATED > 60; GLUCOSE 124 MG/DL (70-105); POTASSIUM 4.3 MMOL/L (3.6-5.0); SODIUM 137 MMOL/L (135-145); TOTAL PROTEIN 5.1 GM/DL (6.4-8.2)
[2020-04-23] MEDS: methylPREDNISolone 125 MG (Solu-MEDROL) VIAL IVP SCH ×3 (05:05→20:03)
--- NOTE | 2020-04-23 10:20 | Occupational Ther Daily Note ---
OT Current Status-Daily Note Subjective Pt's nurse clears OT entry. Pt agreeable to therapy, daughter present through session. Pt denies pain. Mental Status/Objective Patient Orientation: Person, Place, Situation Attachments: Telemetry ADL-Treatment Therapy Code Descriptions/Definitions Functional [place] Measure: 0=Not Assessed/NA 4=Minimal Assistance 1=Total Assistance 5=Supervision or Setup 2=Maximal Assistance 6=Modified [place] 3=Moderate Assistance 7=Complete IndependenceSCALE: Activities may be completed with or without assistive devices. 2-Ukuxwqvjuq-yrlhktq completes the activity by him/herself with no assistance from a helper. 5-Set-up or Clean-up Assistance-helper sets up or cleans up; patient completes activity. [place] assists only prior to or following the activity. 4-Supervision or Touching Assistance-helper provides verbal cues and/or touching/steadying and/or contact guard assistance as patient completes a ctivity. Assistance may be provided throughout the activity or intermittently. 3-Partial/Moderate Assistance-helper does LESS THAN HALF the effort. [place] lifts, holds or supports trunk or limbs, but provides less than half the effort. 2-Substantial/Maximal Assistance-helper does MORE THAN HALF the effort. [place] lifts or holds trunk or limbs and provides more than half the effort. 9-Nubcrvfin-qamcsa does ALL the effort. Patient does none of the effort to complete the activity. Or, the assistance of 2 or more helpers is required for the patient to complete the activity. If activity was not attempted, code reason: 7-Patient Refused. 9-Not Applicable-not attempted and the patient did not perform the activity before the current illness, exacerbation or injury. 10-Not Attempted due to Environmental Limitations-(lack of equipment, weather restraints, etc.). 88-Not Attempted due to Medical Conditions or Safety Concerns. Lower Body Dressing (QC): 4 (SBA EOB for brief donning. ) On/Off Footwear: 6 (IND EOB.) Toileting Hygiene (QC): 4 (SBA in stance for marj/ bottom hygiene) Other Treatment Bed mob with SBA, sits EOB ~5 min to complete UE theraband ex with SBA--> cues f or placement and tension throughout. Pt completes 4 exercises with 10 reps bilaterally to increase functional activity tolerance. Pt completes sit to stand without AD and completes brief doffing/ cleansing. Pt returns to sit to thread BLE, stands for ~1 min, no LOB nor dizziness, pt sits in recliner end of session, all needs met, call light in reach. Education OT Patient Education: Correct positioning, Exercise program, Home exercise program, Modified ADL techniques, Progress toward Goal/Update tx plan, Safety issues Teaching Recipient: Patient, Family Teaching Methods: Demonstration, Discussion Response to Teaching: Verbalize Understanding, Return Demonstration, Reinforcement Needed OT Personal Care Service Provider Goals Mcfp Goals Time Frame: Apr 28, 2020 Eating (QC): 6 Oral Hygiene (QC): 6 Toileting Hygiene (QC): 4 Shower/Bathe Self (QC): 4 Upper Body Dressing (QC): 6 Lower Body Dressing (QC): 4 On/Off Footwear (QC): 4 Additional Goals: 1-Demonstrate ADL Tasks, 2-Verbalize Understanding, 3- ImproveStrength/Sergio 1=Demonstrate adherence to instructed precautions during ADL tasks. 2=Patient will verbalize/demonstrate understanding of assistive devices/modifications for ADL. 3=Patient will improve strength/tolerance for activity to enable patient to perform ADL's. OT Education/Plan Problem List/Assessment Assessment: Decreased Activ Tolerance, Decreased UE Strength, Impaired I ADL's, Impaired Self-Care Skills Discharge Recommendations Plan/Recommendations: Continue POC Therapy Discharge Recommendati: Home & Family Treatment Plan/Plan of Care Treatment,Training & Education: Yes Patient would benefit from OT for education, treatment and training to promote independence in ADL's, mobility, safety and/or upper extremity function for ADL's. Plan of Care: ADL Retraining, Caregiver Training, Functional Mobility, UE Funct Exercise/Act Treatment Duration: Apr 28, 2020 Frequency: 5 times per week Estimated Hrs Per Day: .25 hour per day Agreement: Yes Rehab Potential: Fair Time/GCodes Start Time: 09:49 Stop Time: 10:07 Total Time Billed (hr/min): 18 Billed Treatment Time 1, ADL (18) CHANA MURILLO OTR Apr 23, 2020 10:20
--- NOTE | 2020-04-23 10:51 | Progress Note ---
Subjective Subjective Date Seen by Provider: Apr 23, 2020 Time Seen by Provider: 07:00 No overnight events - fluid/edema in legs present- pt is incontinent of urine- hard for staff to quantify. -Pt is confused and want to get up and go home- she thought it had snowed last night (and then changed it to staff told him it snowed outside.) Review of Systems General: No Chills, No Night Sweats HEENT: Head Aches Pulmonary: No Dyspnea, No Cough Cardiovascular: No: Chest Pain Gastrointestinal: No: Nausea, Vomiting Musculoskeletal: No: neck pain, shoulder pain Neurological: Weakness All Other Systems Reviewed All Other Systems Reviewed: Yes (Negative excepted noted.) Objective Exam Vital Signs Vital Signs Date Time Temp Pulse Resp B/P (MAP) Pulse Ox O2 Delivery O2 Flow Rate FiO2 04/23/20 08:50 Room Air 04/23/20 08:00 Room Air 04/23/20 08:00 36.6 66 18 164/84 (110) 93 04/23/20 04:00 Nasal Cannula 2.00 04/23/20 04:00 36.3 60 20 143/68 (93) 96 Nasal Cannula 2.00 04/23/20 01:00 64 04/23/20 00:00 69 20 97 Nasal Cannula 2.00 04/23/20 00:00 Nasal Cannula 2.00 04/22/20 20:00 75 17 151/85 (107) 96 Room Air 04/22/20 20:00 Nasal Cannula 2.00 04/22/20 20:00 Room Air 04/22/20 19:00 77 04/22/20 16:20 Room Air 04/22/20 16:00 69 24 152/86 (108) 94 Room Air 04/22/20 16:00 37.1 04/22/20 12:44 86 04/22/20 12:11 Room Air 04/22/20 12:00 37.0 04/22/20 11:00 68 27 123/59 (80) 95 Room Air I & O 04/23/20 07:00 Intake Total 1070 ml Output Total 350 ml Balance 720 ml General Appearance: No Apparent Distress, WD/WN Eyes: Bilateral Eye Normal Inspection, Bilateral Eye PERRL, Bilateral Eye EOMI HEENT: PERRL/EOMI Neck: Full Range of Motion Respiratory: Chest Non Tender, No Accessory Muscle Use, No Respiratory Distress Cardiovascular: Regular Rate, Rhythm Gastrointestinal: Normal Bowel Sounds, No Organomegaly, No Pulsatile Mass, Non Tender, Soft Rectal: Deferred Back: Normal Inspection, No Vertebral Tenderness Extremity: Normal Capillary Refill, Non Tender, No Calf Tenderness Neurologic/Psychiatric: Alert, No Motor/Sensory Deficits, Normal Mood/Affect, 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 Norm as Tested, Disoriented Skin: Normal Color, Warm/Dry, Erythema (BILATERAL LOWER LEGS MEDIALLY AND ANTERIORLY) Lymphatic: No Adenopathy Results Lab Laboratory Tests 04/23/20 03:30: White Blood Count 8.7, Red Blood Count 3.58L, Hemoglobin 11.5, Hematocrit 34L, Mean Corpuscular Volume 95, Mean Corpuscular Hemoglobin 32, Mean Corpuscular Hemoglobin Concent 34, Red Cell Distribution Width 14.1, Platelet Count 119L, Mean Platelet Volume 12.8H, Sodium Level 137, Potassium Level 4.3, Chloride Level 107, Carbon Dioxide Level 21, Anion Gap 9, Blood Urea Nitrogen 15, Creatin ine 0.54L, Estimat Glomerular Filtration Rate > 60, BUN/Creatinine Ratio 28, Glucose Level 124H, Calcium Level 8.2L, Corrected Calcium 9.3, Total Bilirubin 0.9, Aspartate Amino Transf (AST/SGOT) 31, Alanine Aminotransferase (ALT/SGPT) 50, Alkaline Phosphatase 162H, Total Protein 5.1L, Albumin 2.6L Microbiology 04/21/20 MRSA Screen - Final, Complete MRSA not isolated 04/20/20 Blood Culture - Preliminary, Resulted No growth 04/20/20 Urine Culture - Final, Complete NO GROWTH Assessment/Plan Assessment/Plan Assessment and Plan 04/22/20- surgery planning to do the temporal artery biopsy. -treating for pneumonia -she is on steroids as well. -hypokalemia improved. 04/23/20-- doing better but confused- not making sense- such as she thinks it snowed last night- (roof outside her room is bright white.) temporal artery biopsy today. Stopped ivf, giving 40mg lasix IV. Dispo: continue to monitor- pt has improved. Problems: (1) Pneumonia (2) Sepsis Qualifiers: Qualified Codes: A41.9 - Sepsis, unspecified organism (3) RLS (restless legs syndrome) (4) Headache (5) Hypokalemia Clinical Quality Measures DVT/VTE Risk/Contraindication: Risk Factor Score Per Nursin RFS Level Per Nursing on Admit: 4+=Very High NEGIN GUAJARDO MD Apr 23, 2020 10:51
--- NOTE | 2020-04-23 11:29 | Physical Therapy Daily Note ---
PT Daily Note-Current Subjective Patient agrees to PT. Family present. Pain Numeric Pain Scale: 0-No Pain Location: No Pain Reported Mental Status Patient Orientation: Normal For Age Transfers SCALE: Activities may be completed with or without assistive devices. 3-Beqyqhpyjs-gukgznl completes the activity by him/herself with no assistance from a helper. 5-Set-up or Clean-up Assistance-helper sets up or cleans up; patient completes activity. [place] assists only prior to or following the activity. 4-Supervision or Touching Assistance-helper provides verbal cues and/or touching/steadying and/or contact guard assistance as patient completes activity. Assistance may be provided throughout the activity or intermittently. 3-Partial/Moderate Assistance-helper does LESS THAN HALF the effort. [place] lifts, holds or supports trunk or limbs, but provides less than half the effort. 2-Substantial/Maximal Assistance-helper does MORE THAN HALF the effort. [place] lifts or holds trunk or limbs and provides more than half the effort. 7-Lqwnxbirk-xxgokv does ALL the effort. Patient does none of the effort to complete the activity. Or, the assistance of 2 or more helpers is required for the patient to complete the activity. If activity was not attempted, code reason: 7-Patient Refused. 9-Not Applicable-not attempted and the patient did not perform the activity before the current illness, exacerbation or injury. 10-Not Attempted due to Environmental Limitations-(lack of equipment, weather restraints, etc.). 88-Not Attempted due to Medical Conditions or Safety Concerns. Sit to Stand (QC): 5 Toilet Transfer (QC): 5 Patient incontinent urine requiring assistance to cleanse and change Gait Training Does the Patient Walk?: Yes Distance: 500' Walk 10 feet (QC): 5 Walk 50 ft with 2 Turns(QC): 5 Walk 150 ft (QC): 5 Gait Assistive Device: FWW flexed knee posture with FWW use/safe and functional gait sequence Exercises Supine Ex: Ankle pumps, Quad Set, Heel Slides Supine Reps: 15 (in recliner with bilateral LE elevated) Seated Therapy Exercises: Long arc quads Seated Reps: 15 Assessment Improved endurance with functional mobility. Motivated with progress. PT Board Runner Goals Board Runner Goals PT Intermediate Goals Time Frame: May 01, 2020 Roll Left & Right (QC): 6 Sit to Lying (QC): 6 Lying-Sitting on Side/Bed(QC): 6 Sit to Stand (QC): 6 Chair/Ajj-ka-Ftzei Xfer(QC): 6 Toilet Transfer (QC): 6 Does the Patient Walk: Yes Walk 10 feet (QC): 6 Walk 50ft with 2 Turns (QC): 6 Walk 150 ft (QC): 6 PT Plan Treatment/Plan Treatment Plan: Continue Plan of Care Treatment Plan: Bed Mobility, Education, Functional Activity Sergio, Functional Strength, Gait, Safety, Therapeutic Exercise, Transfers Treatment Duration: May 01, 2020 Frequency: 6 times per week Estimated Hrs Per Day: .25 hour per day Patient and/or Family Agrees t: Yes Time/GCodes Time In: 1045 Time Out: 1111 Total Billed Treatment Time: 16 Total Billed Treatment 1 visit GT 15 min EX 11 min BRIANNE HAINES PT Apr 23, 2020 11:29
--- NOTE | 2020-04-23 14:32 | Progress Note - Surgery ---
RENETTAAYO MED STUDENT 04/23/20 1432: Subjective Date Seen by a Provider: Apr 23, 2020 Time Seen by a Provider: 07:05 Subjective/Events-last exam Pt comfortable and pain controlled. Headache has subsided and she says she is feeling better. Denies n/v, fever, chills, sob, chest pain. Focused Exam Lactate Level 04/20/20 23:00: Lactic Acid Level 1.52 Time of Focused Exam: 23:49 Objective Exam Vital Signs Date Time Temp Pulse Resp B/P (MAP) Pulse Ox O2 Delivery O2 Flow Rate FiO2 04/23/20 12:00 36.6 57 18 165/76 (105) 94 0.00 04/23/20 08:50 Room Air 04/23/20 08:00 Room Air 04/23/20 08:00 36.6 66 18 164/84 (110) 93 04/23/20 07:16 65 04/23/20 04:00 Nasal Cannula 2.00 04/23/20 04:00 36.3 60 20 143/68 (93) 96 Nasal Cannula 2.00 04/23/20 01:00 64 04/23/20 00:00 69 20 97 Nasal Cannula 2.00 04/23/20 00:00 Nasal Cannula 2.00 04/22/20 20:00 75 17 151/85 (107) 96 Room Air 04/22/20 20:00 Nasal Cannula 2.00 04/22/20 20:00 Room Air 04/22/20 19:00 77 04/22/20 16:20 Room Air 04/22/20 16:00 69 24 152/86 (108) 94 Room Air 04/22/20 16:00 37.1 I & O 04/23/20 07:00 Intake Total 1070 ml Output Total 350 ml Balance 720 ml Capillary Refill : Less Than 3 Seconds General Appearance: No Apparent Distress, WD/WN HEENT: PERRL/EOMI Neck: Full Range of Motion Respiratory: Chest Non Tender, No Accessory Muscle Use, No Respiratory Distress Cardiovascular: Regular Rate, Rhythm Peripheral Pulses: 2+ Radial Pulses (R), 2+ Radial Pulses (L) Gastrointestinal: non tender, soft, no organomegaly Extremity: Normal Capillary Refill, Non Tender, No Calf Tenderness Neurologic/Psychiatric: Alert, No Motor/Sensory Deficits, Normal Mood/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, 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 Skin: Normal Color, Warm/Dry, Erythema (BILATERAL LOWER LEGS MEDIALLY AND ANTERIORLY) Lymphatic: No Adenopathy Results Lab Laboratory Tests 04/23/20 03:30: White Blood Count 8.7, Red Blood Count 3.58L, Hemoglobin 11.5, Hematocrit 34L, Mean Corpuscular Volume 95, Mean Corpuscular Hemoglobin 32, Mean Corpuscular Hemoglobin Concent 34, Red Cell Distribution Width 14.1, Platelet Count 119L, Mean Platelet Volume 12.8H, Sodium Level 137, Potassium Level 4.3, Chloride Level 107, Carbon Dioxide Level 21, Anion Gap 9, Blood Urea Nitrogen 15, Creatinine 0.54L, Estimat Glomerular Filtration Rate > 60, BUN/Creatinine Ratio 28, Glucose Level 124H, Calcium Level 8.2L, Corrected Calcium 9.3, Total Bilirubin 0.9, Aspartate Amino Transf (AST/SGOT) 31, Alanine Aminotransferase (ALT/SGPT) 50, Alkaline Phosphatase 162H, Total Protein 5.1L, Albumin 2.6L Microbiology 04/21/20 MRSA Screen - Final, Complete MRSA not isolated 04/20/20 Blood Culture - Preliminary, Resulted No growth 04/20/20 Urine Culture - Final, Complete NO GROWTH Assessment/Plan Assessment/Plan Assessment/Plan Headache possibly temporal arteritis UTI We discussed risks and benefits of left temporal artery biopsy as has requested. Patient and family understand risks and benefits and they wish to proceed to or today NPO consent Clinical Quality Measures DVT/VTE Risk/Contraindication: Risk Factor Score Per Nursin RFS Level Per Nursing on Admit: 4+=Very High DIONISIO GONZALES DO 04/23/20 1647: Subjective Subjective/Events-last exam Resting comfortably. No new complaints. Headache improved. NPO for left temporal artery biopsy today. Denies n/v fever sweats chills shortness of breath or chest pain. 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 Skin: Normal Color, Warm/Dry, Erythema (BILATERAL LOWER LEGS MEDIALLY AND ANTERIORLY) Lymphatic: No Adenopathy Assessment/Plan Assessment/Plan Assessment/Plan Headache possibly temporal arteritis UTI plan left temporal artery biopsy today NPO Supervisory-Addendum Brief Verification & Attestation Participated in pt care: history, MDM, physical Personally performed: exam, history, MDM, supervision of care Care discussed with: Medical Student Procedures: n/a Results interpretation: Verified all documentation Verification and Attestation of Medical Student E/M Service A medical student performed and documented this service in my presence. I reviewed and verified all information documented by the medical student and made modifications to such information, when appropriate. I personally performed the physical exam and medical decision making. Dionisio Gonzales, Apr 23, 2020,16:47 YAO JACKSON MED STUDENT Apr 23, 2020 14:32 DIONISIO GONZALES DO Apr 23, 2020 16:47
[2020-04-23] MEDS ORDERED: FUROSEMIDE 40 MG/4 ML INJ (LASIX) IVP NR (15:15)
[2020-04-23] MEDS ORDERED: SEVOFLURANE (ULTANE) 15 ML INHAL SOLN ONE ×2 (16:43→18:38)
[2020-04-23] MEDS ORDERED: ONDANSETRON 4 MG/2 ML (SDV) Z0FRAN ONE (16:43)
[2020-04-23] MEDS ORDERED: MIDAZOLAM 2 MG/2 ML (VERSED) VIAL ONE (16:43)
[2020-04-23] MEDS ORDERED: fentaNYL INJECTION 100 MCG/2 ML AMP ONE (16:43)
[2020-04-23] MEDS ORDERED: proPOfol 200 MG/20 ML (DIPRIVAN) VIAL IV ONE (16:43)
[2020-04-23] MEDS ORDERED: LIDOCAINE 1% INJ 20 ML 20 ML VIAL ONE (17:05)
[2020-04-23] MEDS ORDERED: morphine INJ 10 MG/ML 1ML (SYR OR VIAL) IVP ONE (18:45)
[2020-04-23] MEDS ORDERED: ONDANSETRON 4 MG/2 ML (SDV) Z0FRAN IVP PRN (18:45)
[2020-04-23] MEDS ORDERED: GENTAMICIN 80 MG/NS 100 ML IVPB IV ONE ×2 (22:45)
[2020-04-23] MEDS: LEVOFLOXACIN 500 MG/D5W 100 ML (PRE-MIX) IV SCH (23:17)
[2020-04-24] VITALS: BP 122/44
[2020-04-24] MEDS: methylPREDNISolone 125 MG (Solu-MEDROL) VIAL IVP SCH ×2 (03:49→06:01)
[2020-04-24 04:00] VITALS: BP 128/72
[2020-04-24 04:30] LABS: HEMOGLOBIN 11.7 G/DL (11.5-16.0); RED CELL DISTRIBUTION WIDTH 14.1 % (10.0-14.5); WHITE BLOOD COUNT 8.9 10^3/uL (4.3-11.0)
[2020-04-24 04:44] LABS: ALANINE AMINOTRANSFERASE 45 U/L (0-55); ALBUMIN 2.6 GM/DL (3.2-4.5); ALKALINE PHOSPHATASE 152 U/L (40-136); BILIRUBIN,TOTAL 0.8 MG/DL (0.1-1.0); BUN/CREATININE RATIO 29; CALCIUM 8.3 MG/DL (8.5-10.1); CARBON DIOXIDE 28 MMOL/L (21-32); CHLORIDE 101 MMOL/L (98-107); CREATININE SERUM 0.65 MG/DL (0.60-1.30); GFR ESTIMATED > 60; GLUCOSE 220 MG/DL (70-105); POTASSIUM 3.2 MMOL/L (3.6-5.0); SODIUM 139 MMOL/L (135-145); TOTAL PROTEIN 4.6 GM/DL (6.4-8.2)
[2020-04-24] MEDS ORDERED: FUROSEMIDE 40 MG/4 ML INJ (LASIX) IVP ONE (06:45)
[2020-04-24] MEDS: POTASSIUM CL 10MEQ/50ML IVPB 50 ML IV SCH ×3 (06:50→10:36)
[2020-04-24] MEDS ORDERED: NS IV 500 ML 500 ML ONE (07:12)
--- NOTE | 2020-04-24 07:15 | OPERATIVE REPORT ---
DATE OF SERVICE: 04/23/2020 PREOPERATIVE DIAGNOSES: Headache, possible temporal arteritis. POSTOPERATIVE DIAGNOSES: Headache, possible temporal arteritis. PROCEDURE: Left temporal artery biopsy. SURGEON: Dionisio Gonzales DO ANESTHESIA: General. ESTIMATED BLOOD LOSS: Minimal. COMPLICATIONS: None. INDICATIONS: The patient is an 85-year-old female with a headache, and it has been requested that a left temporal artery biopsy be performed. The patient was explained risks and benefits of procedure and wished to proceed with procedure. Consent was signed in the chart. DESCRIPTION OF PROCEDURE: The patient was taken to the operating suite. She was prepped and draped in sterile fashion. Surgical pause was performed. The Doppler was used to isolate the left temporal artery along with palpation. A 15 blade scalpel was used to make a skin incision over the area of palpable artery. Subcutaneous tissues were then carefully dissected down through maintaining hemostasis until the left temporal artery was located. This was dissected around and was clamped both proximally and distally and a segment of the left temporal artery was removed, the ends were tied off using 3-0 silk sutures and then the wound was irrigated and suctioned. Hemostasis was achieved and the skin was then closed using 5-0 Prolene in simple interrupted fashion. The area was washed, and dried and sterile bandage was applied. The patient tolerated procedure well without any complications. She was taken to recovery room in stable condition. Job ID: [id number] DocumentID: [id number] Dictated Date: 04/23/2020 20:50:09 Warehouse Unloader Date: 04/24/2020 07:14:56 Dictated By: IDONISIO GONZALES DO
[2020-04-24] MEDS ORDERED: NS IV 1000 ML 1,000 ML IV SCH (07:30)
[2020-04-24 08:00] VITALS: BP 151/67
--- NOTE | 2020-04-24 09:15 | NUR ---
THIS NURSE NOTIFIED DR ABDI THAT PATIENT'S HEART RATE JUMPS TO 140-150 BPM, BP IS 134/93, TEMP IS 37.3 AND PT IS C/O DIZZINESS. THIS NURSE SENT EKG RESULTS. DR ABDI PUT IN ORDER FOR METOPROLOL.
--- NOTE | 2020-04-24 10:17 | Physical Therapy Progress Note ---
Therapy Progress Note Patient declined PT stating she doesn't feel well and is no "up to doing anything today". PT will attempt in a.m. 1 ref ([id number]) BRIANNE HAINES PT Apr 24, 2020 10:17
[2020-04-24] MEDS: ENOXAPARIN 40 MG/0.4 ML (LOVENOX) SYR SC SCH ×2 (10:35→17:14)
[2020-04-24] MEDS: meTOprolol TARTRATE 25 MG (LOPRESSOR) TABLET PO SCH ×2 (10:36→22:17)
--- NOTE | 2020-04-24 10:57 | Anesthesia-General Post-Op ---
General Patient Condition Mental Status/LOC: Same as Preop Cardiovascular: Satisfactory Nausea/Vomiting: Absent Respiratory: Satisfactory Pain: Controlled Complications: Absent Post Op Complications Complications None Follow Up Care/Instructions Patient Instructions None needed. Anesthesia/Patient Condition Patient Condition Patient is doing well, no complaints, stable vital signs, no apparent adverse anesthesia problems. BERNABE DIAZ DO Apr 24, 2020 10:57
[2020-04-24 12:00] VITALS: BP 112/68
[2020-04-24] MEDS: predniSONE 10 MG TAB PO SCH (12:31)
--- NOTE | 2020-04-24 12:41 | Occupational Ther Daily Note ---
OT Current Status-Daily Note Subjective Pt seen in bed, sleeping. Pt's states pt has been asleep for "awhile." Pt wakes with touch. pt agrees to sit up for feeding. Mental Status/Objective Patient Orientation: Normal For Age Attachments: IV ADL-Treatment Therapy Code Descriptions/Definitions Functional [place] Measure: 0=Not Assessed/NA 4=Minimal Assistance 1=Total Assistance 5=Supervision or Setup 2=Maximal Assistance 6=Modified [place] 3=Moderate Assistance 7=Complete IndependenceSCALE: Activities may be completed with or without assistive devices. 6-Qryhmpqyev-esbkivg completes the activity by him/herself with no assistance from a helper. 5-Set-up or Clean-up Assistance-helper sets up or cleans up; patient completes activity. [place] assists only prior to or following the activity. 4-Supervision or Touching Assistance-helper provides verbal cues and/or touching/steadying and/or contact guard assistance as patient completes activity. Assistance may be provided throughout the activity or intermittently. 3-Partial/Moderate Assistance-helper does LESS THAN HALF the effort. [place] lifts, holds or supports trunk or limbs, but provides less than half the effort. 2-Substantial/Maximal Assistance-helper does MORE THAN HALF the effort. [place] lifts or holds trunk or limbs and provides more than half the effort. 4-Ukmmwfdxu-xnsrox does ALL the effort. Patient does none of the effort to complete the activity. Or, the assistance of 2 or more helpers is required for the patient to complete the activity. If activity was not attempted, code reason: 7-Patient Refused. 9-Not Applicable-not attempted and the patient did not perform the activity before the current illness, exacerbation or injury. 10-Not Attempted due to Environmental Limitations-(lack of equipment, weather restraints, etc.). 88-Not Attempted due to Medical Conditions or Safety Concerns. Eating (QC): 6 Lower Body Dressing (QC): 4 (SBA EOB and in stance at walker level.) Other Treatment Pt supine to EOB with SBA. Pt sits EOB and completes brief donning/ in stance. Pt reaches chair with 2WW and SBA. Pt sits with all needs met, call light in reach. Pt's food placed in front of pt. Nursing notified of pt position. Education OT Patient Education: Correct positioning, Purpose of tx/functional activities, Safety issues Teaching Recipient: Patient Teaching Methods: Demonstration, Discussion Response to Teaching: Verbalize Understanding, Return Demonstration OT Half-Way Goals Half-Way Goals Time Frame: Apr 28, 2020 Eating (QC): 6 Oral Hygiene (QC): 6 Toileting Hygiene (QC): 4 Shower/Bathe Self (QC): 4 Upper Body Dressing (QC): 6 Lower Body Dressing (QC): 4 On/Off Footwear (QC): 4 Additional Goals: 1-Demonstrate ADL Tasks, 2-Verbalize Understanding, 3- ImproveStrength/Sergio 1=Demonstrate adherence to instructed precautions during ADL tasks. 2=Patient will verbalize/demonstrate understanding of assistive devices/modifications for ADL. 3=Patient will improve strength/tolerance for activity to enable patient to perform ADL's. OT Education/Plan Problem List/Assessment Assessment: Decreased Activ Tolerance, Dependent Transfers, Edema, Impaired I ADL's, Impaired Self-Care Skills Discharge Recommendations Plan/Recommendations: Continue POC Therapy Discharge Recommendati: Home & Family Treatment Plan/Plan of Care Patient would benefit from OT for education, treatment and training to promote independence in ADL's, mobility, safety and/or upper extremity function for ADL's. Plan of Care: ADL Retraining, Caregiver Training, Functional Mobility, UE Funct Exercise/Act Treatment Duration: Apr 28, 2020 Frequency: 5 times per week Estimated Hrs Per Day: .25 hour per day Agreement: Yes Rehab Potential: Fair Time/GCodes Start Time: 11:48 Stop Time: 11:59 Total Time Billed (hr/min): 11 Billed Treatment Time 1, ADL 11 CHANA MURILLO OTR Apr 24, 2020 12:41
--- NOTE | 2020-04-24 13:00 | NUR ---
Taking over care of patients att, report received from Jemima WYLIE
--- NOTE | 2020-04-24 14:08 | Progress Note ---
Subjective Subjective Date Seen by Provider: Apr 24, 2020 Time Seen by Provider: 06:25 No overnight events. Patient is still not making good sense- I am unsure of her baseline but seems like she has some dementia. -This AM Pulse jumped up to 140-150s- sinus tachy on EKG. She felt a little di zzy. Pulse is back in the 60s now. Review of Systems ROS Unable to Obtain: confused General: No Chills, No Night Sweats HEENT: Head Aches Pulmonary: No Dyspnea, No Cough Cardiovascular: No: Chest Pain Gastrointestinal: No: Nausea, Vomiting Musculoskeletal: No: neck pain, shoulder pain Neurological: Weakness All Other Systems Reviewed All Other Systems Reviewed: Yes (Negative excepted noted.) Objective Exam Vital Signs Vital Signs Date Time Temp Pulse Resp B/P (MAP) Pulse Ox O2 Delivery O2 Flow Rate FiO2 04/24/20 12:00 37.2 64 18 112/68 (83) 96 Room Air 04/24/20 11:55 Room Air 04/24/20 09:00 92 Room Air 04/24/20 08:00 Room Air 04/24/20 08:00 36.6 69 18 151/67 (95) 90 Room Air 04/24/20 07:06 59 04/24/20 06:09 90 Room Air 04/24/20 04:00 36.8 68 19 128/72 (90) 90 Room Air 04/24/20 04:00 92 Room Air 0.00 04/24/20 01:30 157 04/24/20 01:00 84 04/24/20 00:00 92 Room Air 0.00 04/24/20 00:00 36.4 72 18 122/44 (70) 92 Room Air 04/23/20 21:34 64 04/23/20 21:00 92 Room Air 04/23/20 20:00 36.7 04/23/20 20:00 92 Room Air 0.00 04/23/20 19:15 Room Air 04/23/20 19:10 OxyMask 4 04/23/20 19:10 36.5 20 157/82 (107) 99 Room Air 04/23/20 19:00 14 138/76 (96) 97 OxyMask 4 04/23/20 18:54 OxyMask 6 04/23/20 18:50 14 138/77 (97) 99 OxyMask 6 04/23/20 18:44 OxyMask 8 04/23/20 18:40 13 167/80 (109) 96 OxyMask 8 04/23/20 18:33 OxyMask 10 04/23/20 18:33 36.4 12 159/76 (103) 96 OxyMask 10 04/23/20 16:00 Room Air 04/23/20 16:00 Room Air I & O 04/24/20 07:00 Intake Total 670.625 ml Output Total 2750 ml Balance -2079.375 ml General Appearance: No Apparent Distress, WD/WN Eyes: Bilateral Eye Normal Inspection, Bilateral Eye PERRL, Bilateral Eye EOMI HEENT: PERRL/EOMI, Pharynx Normal Neck: Full Range of Motion, Supple Respiratory: Chest Non Tender, Crackles (IN BASES), Decreased Breath Sounds (IN BASES), Wheezing (FAINT) Cardiovascular: Regular Rate, Rhythm, Normal Peripheral Pulses, Other (EDEMA BILATERAL LOWER LEGS) Gastrointestinal: Normal Bowel Sounds, No Organomegaly, No Pulsatile Mass, Non Tender, Soft Rectal: Deferred Back: Normal Inspection, No Vertebral Tenderness Extremity: Normal Capillary Refill, Normal Inspection, Normal Range of Motion, Non Tender, No Calf Tenderness, Pedal Edema Neurologic/Psychiatric: Alert, No Motor/Sensory Deficits, Normal Mood/Affect, painter set II-XII Norm as Tested, Other (ORIENTED TO PERSON, PLACE) Skin: Erythema (BILATERAL LOWER LEGS MEDIALLY AND ANTERIORLY) Lymphatic: No Adenopathy Results Lab Laboratory Tests 04/24/20 04:04: White Blood Count 8.9, Red Blood Count 3.65L, Hemoglobin 11.7, Hematocrit 35, Mean Corpuscular Volume 95, Mean Corpuscular Hemoglobin 32, Mean Corpuscular Hemoglobin Concent 34, Red Cell Distribution Width 14.1, Platelet Count 224, Mean Platelet Volume 11.0H, Sodium Level 139, Potassium Level 3.2L, Chloride Level 101, Carbon Dioxide Level 28, Anion Gap 10, Blood Urea Nitrogen 19H, Creatinine 0.65, Estimat Glomerular Filtration Rate > 60, BUN/Creatinine Ratio 29, Glucose Level 220H, Calcium Level 8.3L, Corrected Calcium 9.4, Total Bilirubin 0.8, Aspartate Amino Transf (AST/SGOT) 21, Alanine Aminotransferase (ALT/SGPT) 45, Alkaline Phosphatase 152H, Total Protein 4.6L, Albumin 2.6L Microbiology 04/21/20 MRSA Screen - Final, Complete MRSA not isolated 04/20/20 Blood Culture - Preliminary, Resulted No growth 04/20/20 Urine Culture - Final, Complete NO GROWTH Assessment/Plan Assessment/Plan Assessment and Plan 04/22/20- surgery planning to do the temporal artery biopsy. -treating for pneumonia -she is on steroids as well. -hypokalemia improved. 04/23/20-- doing better but confused- not making sense- such as she thinks it snowed last night- (roof outside her room is bright white.) temporal artery biopsy today. Stopped ivf, giving 40mg lasix IV. 04/24/20- Temporal artery biopsy done yesterday 04/23/20; changed from IV to po prednisone 60mg; if temporal arteritis will need at least 2 weeks of 60mg, then decreased to 50mg for 4 weeks- may decreased by 5-10mg every 2 weeks thereafter. I don't think she has temporal arteritis. Ordered a tick titer as she has had headaches, fevers, joint pains. -heart rate jumped up to 140-150s -EKG Sinus Tachy- started metoprolol today for her sinus tachycardia. May need to d/c if pulse or BP start to go low. -replacing potassium and magnesium today. -20mg lasix IV for peripheral edema- worsened by steroids. -still waiting on alpha- gal results from last week blood test. Dispo: continue to monitor- home vs placement. Problems: (1) Pneumonia (2) Sepsis Qualifiers: Qualified Codes: A41.9 - Sepsis, unspecified organism (3) RLS (restless legs syndrome) (4) Headache (5) Hypokalemia Clinical Quality Measures DVT/VTE Risk/Contraindication: Risk Factor Score Per Nursin RFS Level Per Nursing on Admit: 4+=Very High NEGIN GUAJARDO MD Apr 24, 2020 14:08
[2020-04-24 16:00] VITALS: BP 138/68
--- NOTE | 2020-04-24 16:18 | Progress Note - Surgery ---
RENETTAAYO MED STUDENT 04/24/20 1618: Subjective Date Seen by a Provider: Apr 24, 2020 Time Seen by a Provider: 07:30 Subjective/Events-last exam Pt appeared comfortable and in no acute distress. Incision site was clean with no signs of infection. Denies any further headache and denies vision problems. No n/v, fever, sob, chest pain. Focused Exam Time of Focused Exam: 23:49 Objective Exam Vital Signs Date Time Temp Pulse Resp B/P (MAP) Pulse Ox O2 Delivery O2 Flow Rate FiO2 04/24/20 13:11 60 04/24/20 12:00 37.2 64 18 112/68 (83) 96 Room Air 04/24/20 11:55 Room Air 04/24/20 09:00 92 Room Air 04/24/20 08:00 Room Air 04/24/20 08:00 36.6 69 18 151/67 (95) 90 Room Air 04/24/20 07:06 59 04/24/20 06:09 90 Room Air 04/24/20 04:00 36.8 68 19 128/72 (90) 90 Room Air 04/24/20 04:00 92 Room Air 0.00 04/24/20 01:30 157 04/24/20 01:00 84 04/24/20 00:00 92 Room Air 0.00 04/24/20 00:00 36.4 72 18 122/44 (70) 92 Room Air 04/23/20 21:34 64 04/23/20 21:00 92 Room Air 04/23/20 20:00 36.7 04/23/20 20:00 92 Room Air 0.00 04/23/20 19:15 Room Air 04/23/20 19:10 OxyMask 4 04/23/20 19:10 36.5 20 157/82 (107) 99 Room Air 04/23/20 19:00 14 138/76 (96) 97 OxyMask 4 04/23/20 18:54 OxyMask 6 04/23/20 18:50 14 138/77 (97) 99 OxyMask 6 04/23/20 18:44 OxyMask 8 04/23/20 18:40 13 167/80 (109) 96 OxyMask 8 04/23/20 18:33 OxyMask 10 8/13/20 18:33 36.4 12 159/76 (103) 96 OxyMask 10 I & O 04/24/20 06:59 Intake Total 670.625 ml Output Total 2750 ml Balance -2079.375 ml Capillary Refill : Less Than 3 Seconds General Appearance: No Apparent Distress, WD/WN HEENT: PERRL/EOMI, Pharynx Normal Neck: Full Range of Motion, Supple Respiratory: Chest Non Tender, Crackles, Decreased Breath Sounds, Wheezing Cardiovascular: Regular Rate, Rhythm, Normal Peripheral Pulses, Other Peripheral Pulses: 2+ Radial Pulses (R), 2+ Radial Pulses (L) Gastrointestinal: non tender, soft, no organomegaly Extremity: Normal Capillary Refill, Normal Inspection, Normal Range of Motion, Non Tender, No Calf Tenderness, Pedal Edema Neurologic/Psychiatric: Alert, No Motor/Sensory Deficits, Normal Mood/Affect, home care physical therapist II-XII Norm as Tested, Other Skin: Erythema Lymphatic: No Adenopathy Results Lab Laboratory Tests 04/24/20 04:04: White Blood Count 8.9, Red Blood Count 3.65L, Hemoglobin 11.7, Hematocrit 35, Mean Corpuscular Volume 95, Mean Corpuscular Hemoglobin 32, Mean Corpuscular Hemoglobin Concent 34, Red Cell Distribution Width 14.1, Platelet Count 224, Mean Platelet Volume 11.0H, Sodium Level 139, Potassium Level 3.2L, Chloride Level 101, Carbon Dioxide Level 28, Anion Gap 10, Blood Urea Nitrogen 19H, Creatinine 0.65, Estimat Glomerular Filtration Rate > 60, BUN/Creatinine Ratio 29, Glucose Level 220H, Calcium Level 8.3L, Corrected Calcium 9.4, Total Bilirubin 0.8, Aspartate Amino Transf (AST/SGOT) 21, Alanine Aminotransferase (ALT/SGPT) 45, Alkaline Phosphatase 152H, Total Protein 4.6L, Albumin 2.6L 04/24/20 08:14: Microbiology 04/21/20 MRSA Screen - Final, Complete MRSA not isolated 04/20/20 Blood Culture - Preliminary, Resulted No growth 04/20/20 Urine Culture - Final, Complete NO GROWTH Assessment/Plan Assessment/Plan Assessment/Plan 04/22/20- surgery planning to do the temporal artery biopsy. -treating for pneumonia -she is on steroids as well. -hypokalemia improved. 04/23/20-- doing better but confused- not making sense- such as she thinks it snowed last night- (roof outside her room is bright white.) temporal artery biopsy today. Stopped ivf, giving 40mg lasix IV. 04/24/20- Temporal artery biopsy done yesterday 04/23/20; changed from IV to po prednisone 60mg; if temporal arteritis will need at least 2 weeks of 60mg, then decreased to 50mg for 4 weeks- may decreased by 5-10mg every 2 weeks thereafter. I don't think she has temporal arteritis. Ordered a tick titer as she has had headaches, fevers, joint pains. -heart rate jumped up to 140-150s -EKG Sinus Tachy- started metoprolol today for her sinus tachycardia. May need to d/c if pulse or BP start to go low. -replacing potassium and magnesium today. -20mg lasix IV for peripheral edema- worsened by steroids. -still waiting on alpha- gal results from last week blood test. Dispo: continue to monitor- home vs placement. Clinical Quality Measures DVT/VTE Risk/Contraindication: Risk Factor Score Per Nursin RFS Level Per Nursing on Admit: 4+=Very High DIONISIO GONZALES DO 04/24/20 1626: Subjective Subjective/Events-last exam Patient no pain at incision site. No headache. Denies any new complaints. Denies n/v fever sweats chills shortness of breath or chest pain. Objective Exam General Appearance: No Apparent Distress, WD/WN HEENT: PERRL/EOMI Neck: Full Range of Motion Respiratory: Chest Non Tender Gastrointestinal: non tender, soft, no organomegaly Extremity: Normal Capillary Refill, Non Tender, No Calf Tenderness Neurologic/Psychiatric: Alert, Normal Mood/Affect Skin: Normal Color, Warm/Dry Lymphatic: No Adenopathy Assessment/Plan Assessment/Plan Assessment/Plan Headache UTI S/p temporal artery biopsy left Keep incision clean and dry. Sutures in 7 days Will sign off, call if needed. Supervisory-Addendum Brief Verification & Attestation Participated in pt care: history, MDM, physical Personally performed: exam, history, MDM, supervision of care Care discussed with: Medical Student Procedures: n/a Results interpretation: Verified all documentation Verification and Attestation of Medical Student E/M Service A medical student performed and documented this service in my presence. I reviewed and verified all information documented by the medical student and made modifications to such information, when appropriate. I personally performed the physical exam and medical decision making. Dionisio Gonzales, Apr 24, 2020,16:25 AYO JACKSON MED STUDENT Apr 24, 2020 16:18 DIONISIO GONZALES DO Apr 24, 2020 16:26
[2020-04-24 20:00] VITALS: BP 151/73
[2020-04-24] MEDS: KCL 10 MEQ TAB (MICRO K) PO SCH (22:08)
[2020-04-24] MEDS: LEVOFLOXACIN 500 MG/D5W 100 ML (PRE-MIX) IV SCH (22:17)
[2020-04-25] VITALS: BP 150/72
[2020-04-25 04:00] VITALS: BP 146/67
[2020-04-25 04:12] LABS: HEMOGLOBIN 11.4 G/DL (11.5-16.0); RED CELL DISTRIBUTION WIDTH 13.8 % (10.0-14.5); WHITE BLOOD COUNT 10.6 10^3/uL (4.3-11.0)
[2020-04-25 04:31] LABS: ALBUMIN 2.6 GM/DL (3.2-4.5); CHLORIDE 101 MMOL/L (98-107); POTASSIUM 3.8 MMOL/L (3.6-5.0); SODIUM 139 MMOL/L (135-145)
[2020-04-25 04:32] LABS: CALCIUM 8.1 MG/DL (8.5-10.1)
[2020-04-25 04:33] LABS: GLUCOSE 120 MG/DL (70-105); TOTAL PROTEIN 4.6 GM/DL (6.4-8.2)
[2020-04-25 04:34] LABS: CARBON DIOXIDE 31 MMOL/L (21-32)
[2020-04-25 04:35] LABS: BILIRUBIN,TOTAL 0.8 MG/DL (0.1-1.0)
[2020-04-25 04:37] LABS: ALKALINE PHOSPHATASE 130 U/L (40-136); CREATININE SERUM 0.63 MG/DL (0.60-1.30); GFR ESTIMATED > 60
[2020-04-25 04:38] LABS: BUN/CREATININE RATIO 33
[2020-04-25 04:40] LABS: ALANINE AMINOTRANSFERASE 40 U/L (0-55)
[2020-04-25] MEDS: KCL 10 MEQ TAB (MICRO K) PO SCH (06:55)
[2020-04-25] MEDS: predniSONE 10 MG TAB PO SCH (06:55)
[2020-04-25 08:00] VITALS: BP 124/74
[2020-04-25] MEDS: ENOXAPARIN 40 MG/0.4 ML (LOVENOX) SYR SC SCH (08:45)
[2020-04-25] MEDS: meTOprolol TARTRATE 25 MG (LOPRESSOR) TABLET PO SCH ×2 (08:46→20:38)
[2020-04-25] MEDS ORDERED: FUROSEMIDE 40 MG/4 ML INJ (LASIX) IVP NR (11:30)
[2020-04-25] MEDS ORDERED: SENNA W/DOCUSATE (SENOKOT S) TABLET PO NR (11:30)
[2020-04-25] MEDS ORDERED: KCL 20 MEQ TAB (K-DUR) PO NR (11:30)
--- NOTE | 2020-04-25 11:36 | Progress Note ---
Subjective Date Seen by a Provider: Apr 25, 2020 Time Seen by a Provider: 11:29 Subjective/Events-last exam Fwup pneumonia with sepsis, cephalgia, confusion, Hypertension. C/O cough but then when I told her that her lungs sounded clear she stated that her only problem was swelling in her legs. Discussed with her that she needs to be getting up to the chair to help aerate her lungs and improve her stamina. Focused Exam Time of Focused Exam: 23:49 Objective Exam Vital Signs Date Time Temp Pulse Resp B/P (MAP) Pulse Ox O2 Delivery O2 Flow Rate FiO2 04/25/20 08:00 37.0 61 18 124/74 (91) 93 Room Air 04/25/20 07:00 58 04/25/20 04:00 37.4 55 18 146/67 (93) 93 Room Air 04/25/20 04:00 Room Air 04/25/20 01:00 51 04/25/20 00:00 Room Air 04/25/20 00:00 36.8 57 18 150/72 (98) 87 Room Air 04/24/20 21:00 89 Room Air 04/24/20 20:00 Room Air 04/24/20 20:00 37.1 53 18 151/73 (99) 92 Room Air 04/24/20 19:00 60 04/24/20 16:00 37.0 58 16 138/68 (91) 95 Room Air 04/24/20 16:00 Room Air 04/24/20 13:11 60 04/24/20 12:00 37.2 64 18 112/68 (83) 96 Room Air 04/24/20 11:55 Room Air I & O 04/25/20 07:00 Intake Total 1410 ml Balance 1410 ml Capillary Refill : Less Than 3 Seconds General Appearance: No Apparent Distress Neck: Supple Respiratory: Lungs Clear Cardiovascular: Regular Rate, Rhythm, Systolic Murmur Gastrointestinal: normal bowel sounds, non tender, soft Extremity: Non Tender, No Calf Tenderness, Pedal Edema Neurologic/Psychiatric: Alert, Oriented x3, Depressed Affect Skin: Warm/Dry Results Lab Laboratory Tests 04/25/20 03:48: White Blood Count 10.6, Red Blood Count 3.57L, Hemoglobin 11.4L, Hematocrit 34L, Mean Corpuscular Volume 95, Mean Corpuscular Hemoglobin 32, Mean Corpuscular Hemoglobin Concent 34, Red Cell Distribution Width 13.8, Platelet Count 224, Mean Platelet Volume 11.0H, Sodium Level 139, Potassium Level 3.8, Chloride Level 101, Carbon Dioxide Level 31, Anion Gap 7, Blood Urea Nitrogen 21H, Creat inine 0.63, Estimat Glomerular Filtration Rate > 60, BUN/Creatinine Ratio 33, Glucose Level 120H, Calcium Level 8.1L, Corrected Calcium 9.2, Total Bilirubin 0.8, Aspartate Amino Transf (AST/SGOT) 17, Alanine Aminotransferase (ALT/SGPT) 40, Alkaline Phosphatase 130, Total Protein 4.6L, Albumin 2.6L Microbiology 04/21/20 MRSA Screen - Final, Complete MRSA not isolated 04/20/20 Blood Culture - Preliminary, Resulted No growth 04/20/20 Urine Culture - Final, Complete NO GROWTH Assessment/Plan Assessment/Plan Assess & Plan/Chief Complaint 1. Pneumonia/Sepsis--abx complete, start IS, awaiting tick titers 2. Cephalgia--resolved, had temporal artery biopsy yesterday 3. Hypokalemia--improved 4. Edema--give IV lasix x1 with extra dose of potassium 5. Hypertension/Sinus Tachycardia--on metoprolol 6. Weakness--multifactorial--doing PT but need to get up to the chair and increase activity, may need rehab or SNF for strengthening Clinical Quality Measures DVT/VTE Risk/Contraindication: Risk Factor Score Per Nursin RFS Level Per Nursing on Admit: 4+=Very High KEYLA ENCINAS DO Apr 25, 2020 11:36
--- NOTE | 2020-04-25 12:14 | Physical Therapy Daily Note ---
PT Daily Note-Current Subjective Agrees with no complaint. Transfers SCALE: Activities may be completed with or without assistive devices. 5-Ccubopaqju-chxhdpg completes the activity by him/herself with no assistance from a helper. 5-Set-up or Clean-up Assistance-helper sets up or cleans up; patient completes activity. [place] assists only prior to or following the activity. 4-Supervision or Touching Assistance-helper provides verbal cues and/or touching/steadying and/or contact guard assistance as patient completes activity. Assistance may be provided throughout the activity or intermittently. 3-Partial/Moderate Assistance-helper does LESS THAN HALF the effort. [place] lifts, holds or supports trunk or limbs, but provides less than half the effort. 2-Substantial/Maximal Assistance-helper does MORE THAN HALF the effort. [place] lifts or holds trunk or limbs and provides more than half the effort. 4-Zxaarmftn-ivsvgd does ALL the effort. Patient does none of the effort to complete the activity. Or, the assistance of 2 or more helpers is required for the patient to complete the activity. If activity was not attempted, code reason: 7-Patient Refused. 9-Not Applicable-not attempted and the patient did not perform the activity before the current illness, exacerbation or injury. 10-Not Attempted due to Environmental Limitations-(lack of equipment, weather restraints, etc.). 88-Not Attempted due to Medical Conditions or Safety Concerns. Treatments SBA with bed mobility and transfers. Pt ambulated x 300 ft with FWW with SBA. Up in chair post treatment with needs met. Assessment Current Status: Good Progress Safe and steady gait. 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 Long-Term Goals PT Long-Term Goals Time Frame: May 01, 2020 Roll Left & Right (QC): 6 Sit to Lying (QC): 6 Lying-Sitting on Side/Bed(QC): 6 Sit to Stand (QC): 6 Chair/Urr-zz-Hyqtr Xfer(QC): 6 Toilet Transfer (QC): 6 Does the Patient Walk: Yes Walk 10 feet (QC): 6 Walk 50ft with 2 Turns (QC): 6 Walk 150 ft (QC): 6 PT Plan Problem List Problem List: Activity Tolerance, Functional Strength, Safety Treatment/Plan Treatment Plan: Continue Plan of Care Treatment Plan: Bed Mobility, Education, Functional Activity Sergio, Functional Strength, Gait, Safety, Therapeutic Exercise, Transfers Treatment Duration: May 01, 2020 Frequency: 6 times per week Estimated Hrs Per Day: .25 hour per day Patient and/or Family Agrees t: Yes Safety Risks/Education Patient Education: Safety Issues Teaching Recipient: Patient Teaching Methods: Discussion Response to Teaching: Verbalize Understanding Time/GCodes Time In: 1115 Time Out: 1126 Total Billed Treatment Time: 11 Total Billed Treatment visit GT 11 BARTOLO REYNOLDS PT Apr 25, 2020 12:14
--- NOTE | 2020-04-25 14:27 | Progress Note - Surgery ---
ISIDRO BANEGAS MED STUDENT 04/25/20 1427: Subjective Date Seen by a Provider: Apr 25, 2020 Time Seen by a Provider: 08:15 Subjective/Events-last exam Patient states she is in no current pain, denies any headache. She states her legs are swollen but less so than yesterday. She notes she has been walking twice a day, and has developed a cough which she states is normal for her allergies. No CP, tachy, SOB, wheezing, abdominal pain, vomiting. Focused Exam Time of Focused Exam: 23:49 Objective Exam Vital Signs Date Time Temp Pulse Resp B/P (MAP) Pulse Ox O2 Delivery O2 Flow Rate FiO2 04/25/20 13:39 55 04/25/20 08:00 37.0 61 18 124/74 (91) 93 Room Air 04/25/20 07:00 58 04/25/20 04:00 37.4 55 18 146/67 (93) 93 Room Air 04/25/20 04:00 Room Air 04/25/20 01:00 51 04/25/20 00:00 Room Air 04/25/20 00:00 36.8 57 18 150/72 (98) 87 Room Air 04/24/20 21:00 89 Room Air 04/24/20 20:00 Room Air 04/24/20 20:00 37.1 53 18 151/73 (99) 92 Room Air 04/24/20 19:00 60 04/24/20 16:00 37.0 58 16 138/68 (91) 95 Room Air 04/24/20 16:00 Room Air I & O 04/25/20 07:00 Intake Total 1410 ml Balance 1410 ml Capillary Refill : Less Than 3 Seconds General Appearance: No Apparent Distress; No Anxious Neck: Normal Inspection, Non Tender; No Carotid Bruit Respiratory: Lungs Clear, Normal Breath Sounds, No Accessory Muscle Use Cardiovascular: Regular Rate, Rhythm, No Murmur, Systolic Murmur Peripheral Pulses: 2+ Carotid (R), 2+ Carotid (L), 2+ Radial Pulses (R), 2+ Radial Pulses (L) Gastrointestinal: non tender, soft Extremity: Non Tender, No Calf Tenderness, Pedal Edema (decreased from yesterday) Neurologic/Psychiatric: Alert, Normal Mood/Affect, Depressed Affect Skin: Warm/Dry Results Lab Laboratory Tests 04/25/20 03:48: White Blood Count 10.6, Red Blood Count 3.57L, Hemoglobin 11.4L, Hematocrit 34L, Mean Corpuscular Volume 95, Mean Corpuscular Hemoglobin 32, Mean Corpuscular Hemoglobin Concent 34, Red Cell Distribution Width 13.8, Platelet Count 224, Mean Platelet Volume 11.0H, Sodium Level 139, Potassium Level 3.8, Chloride Level 101, Carbon Dioxide Level 31, Anion Gap 7, Blood Urea Nitrogen 21H, Creatinine 0.63, Estimat Glomerular Filtration Rate > 60, BUN/Creatinine Ratio 33, Glucose Level 120H, Calcium Level 8.1L, Corrected Calcium 9.2, Total Bilirubin 0.8, Aspartate Amino Transf (AST/SGOT) 17, Alanine Aminotransferase (ALT/SGPT) 40, Alkaline Phosphatase 130, Total Protein 4.6L, Albumin 2.6L Microbiology 04/21/20 MRSA Screen - Final, Complete MRSA not isolated 04/20/20 Blood Culture - Preliminary, Resulted No growth 04/20/20 Urine Culture - Final, Complete NO GROWTH Clinical Quality Measures DVT/VTE Risk/Contraindication: Risk Factor Score Per Nursin RFS Level Per Nursing on Admit: 4+=Very High ANDI ROCA DO 04/25/20 1458: Subjective Time Seen by a Provider: 12:01 Subjective/Events-last exam Pt seen and examined, main complaint was of swelling in her legs. Review of Systems Cardiovascular: No: Chest Pain, Palpitations Gastrointestinal: No: Nausea, Vomiting Objective Exam General Appearance: No Apparent Distress HEENT: Other (incision is c/d/i) Respiratory: Lungs Clear, Normal Breath Sounds, No Accessory Muscle Use Cardiovascular: Regular Rate, Rhythm, Systolic Murmur Extremity: No Calf Tenderness, Pedal Edema (decreased from yesterday) Assessment/Plan Assessment/Plan Assessment/Plan LE Edema S/P Temporal artery biopsy Pt told to increase ambulation, wear some manuel hose and elevate legs when she is sitting or lying down. Possible consideration of a diuretic if they get worse. Incision site looks great. [facility]. Supervisory-Addendum Brief Verification & Attestation Participated in pt care: history, MDM, physical Personally performed: exam, history, MDM Care discussed with: Medical Student Procedures: n/a Verification and Attestation of Medical Student E/M Service A medical student performed and documented this service. I then reviewed and verified all information documented by the medical student and made modifications to such information, when appropriate. I personally performed a physical exam, medical decision making and then discussed any differences between the notes and made revisions as necessary to create one note. Andi Roca , 04/25/20 , 15:02 ISIDRO BANEGAS MED STUDENT Apr 25, 2020 14:27 ANDI ROCA DO Apr 25, 2020 14:58
[2020-04-25 15:53] VITALS: BP 175/82
[2020-04-25 19:10] VITALS: BP 148/69
[2020-04-25] MEDS: clonazePAM 0.5 MG (KlonoPIN) TAB PO PRN (20:37)
[2020-04-25] MEDS: LORazepam INJ 2 MG/ML (ATIVAN) VIAL IVP PRN (20:40)
[2020-04-25] MEDS: SENNA W/DOCUSATE (SENOKOT S) TABLET PO SCH (20:45)
[2020-04-25] MEDS: PHARMACY TO DOSE IV SCH (20:46)
[2020-04-26 00:09] VITALS: BP 133/69
[2020-04-26 03:55] VITALS: BP 149/68
[2020-04-26 05:04] LABS: HEMOGLOBIN 11.5 G/DL (11.5-16.0); MEAN PLATELET VOLUME 10.7 FL (7.4-10.4); RED CELL DISTRIBUTION WIDTH 13.8 % (10.0-14.5); WHITE BLOOD COUNT 9.6 10^3/uL (4.3-11.0)
[2020-04-26 05:31] LABS: ALANINE AMINOTRANSFERASE 44 U/L (0-55); ALBUMIN 2.6 GM/DL (3.2-4.5); ALKALINE PHOSPHATASE 105 U/L (40-136); BILIRUBIN,TOTAL 0.8 MG/DL (0.1-1.0); BUN/CREATININE RATIO 30; CALCIUM 8.2 MG/DL (8.5-10.1); CARBON DIOXIDE 33 MMOL/L (21-32); CHLORIDE 100 MMOL/L (98-107); GFR ESTIMATED > 60; GLUCOSE 88 MG/DL (70-105); POTASSIUM 3.1 MMOL/L (3.6-5.0); SODIUM 140 MMOL/L (135-145); TOTAL PROTEIN 4.3 GM/DL (6.4-8.2)
[2020-04-26] MEDS: KCL 10 MEQ TAB (MICRO K) PO SCH ×2 (05:47→17:10)
[2020-04-26] MEDS: predniSONE 10 MG TAB PO SCH (05:49)
[2020-04-26 07:38] VITALS: BP 153/72
[2020-04-26] MEDS: SENNA W/DOCUSATE (SENOKOT S) TABLET PO SCH ×2 (09:23→20:16)
[2020-04-26] MEDS: ENOXAPARIN 40 MG/0.4 ML (LOVENOX) SYR SC SCH (09:23)
--- NOTE | 2020-04-26 09:28 | NUR ---
PRIOR TO A.M. MEDICATIONS PULSE WAS 54 BPM AND B/P WAS 153/72.
[2020-04-26] MEDS ORDERED: KCL 20 MEQ TAB (K-DUR) PO NR (09:45)
[2020-04-26] MEDS ORDERED: LOSARTAN 25 MG (COZAAR) TAB PO NR (09:45)
--- NOTE | 2020-04-26 09:50 | Progress Note ---
Subjective Date Seen by a Provider: Apr 26, 2020 Time Seen by a Provider: 09:45 Subjective/Events-last exam Fwup pneumonia with sepsis, cephalgia, confusion, Hypertension. Has sitter in room due to confusion. Still reports no BM but several charted in I and Os. Focused Exam Time of Focused Exam: 23:49 Objective Exam Vital Signs Date Time Temp Pulse Resp B/P (MAP) Pulse Ox O2 Delivery O2 Flow Rate FiO2 04/26/20 07:38 36.1 54 18 153/72 (99) 96 Room Air 04/26/20 07:09 57 04/26/20 04:00 93 Room Air 0.00 04/26/20 03:55 36.6 52 18 149/68 (95) 93 Room Air 04/26/20 01:00 50 04/26/20 00:18 96 Room Air 0.00 04/26/20 00:09 36.8 62 20 133/69 (90) 96 Room Air 0.00 0.00 04/25/20 20:30 93 Room Air 0.00 04/25/20 20:30 96 Room Air 0.00 04/25/20 19:10 36.8 51 18 148/69 (95) 93 Room Air 04/25/20 19:00 52 04/25/20 16:00 Room Air 04/25/20 15:53 37.0 50 18 175/82 (113) 96 Room Air 04/25/20 13:39 55 04/25/20 12:00 Room Air I & O 04/26/20 07:00 Intake Total 1050 ml Output Total 3275 ml Balance -2225 ml Capillary Refill : Less Than 3 Seconds General Appearance: No Apparent Distress Neck: Supple Cardiovascular: Regular Rate, Rhythm Gastrointestinal: normal bowel sounds, non tender, soft Extremity: Non Tender, No Calf Tenderness, Pedal Edema (improved to ankles) Neurologic/Psychiatric: Alert, Disoriented Skin: Warm/Dry Results Lab Laboratory Tests 04/26/20 04:40: White Blood Count 9.6, Red Blood Count 3.64L, Hemoglobin 11.5, Hematocrit 35, Mean Corpuscular Volume 95, Mean Corpuscular Hemoglobin 32, Mean Corpuscular Hem oglobin Concent 33, Red Cell Distribution Width 13.8, Platelet Count 252, Mean Platelet Volume 10.7H, Sodium Level 140, Potassium Level 3.1L, Chloride Level 100, Carbon Dioxide Level 33H, Anion Gap 7, Blood Urea Nitrogen 18, Creatinine 0.60, Estimat Glomerular Filtration Rate > 60, BUN/Creatinine Ratio 30, Glucose Level 88, Calcium Level 8.2L, Corrected Calcium 9.3, Total Bilirubin 0.8, Aspartate Amino Transf (AST/SGOT) 20, Alanine Aminotransferase (ALT/SGPT) 44, Alkaline Phosphatase 105, Total Protein 4.3L, Albumin 2.6L Microbiology 04/21/20 MRSA Screen - Final, Complete MRSA not isolated 04/20/20 Blood Culture - Preliminary, Resulted No growth 04/20/20 Urine Culture - Final, Complete NO GROWTH Assessment/Plan Assessment/Plan Assess & Plan/Chief Complaint 1. Pneumonia/Sepsis--abx complete, on IS, awaiting final on tick titers 2. Cephalgia--resolved, had temporal artery biopsy 3. Hypokalemia--extra potassium now and increased KCL 20meq to BID dosing 4. Edema--improved after IV lasix yesterday 5. Hypertension/Sinus Tachycardia--on metoprolol with pulse down to 50s so will add low dose cozaar 6. Weakness--multifactorial--doing PT but need to get up to the chair and increase activity, may need rehab or SNF for strengthening 7. Confusion--will decrease prednisone in case contributing Clinical Quality Measures DVT/VTE Risk/Contraindication: Risk Factor Score Per Nursin RFS Level Per Nursing on Admit: 4+=Very High KEYLA ENCINAS DO Apr 26, 2020 09:50
--- NOTE | 2020-04-26 10:30 | Progress Note - Surgery ---
ISIDRO BANEGAS MED STUDENT 04/26/20 1030: Subjective Date Seen by a Provider: Apr 26, 2020 Time Seen by a Provider: 08:14 Subjective/Events-last exam Patient states she feels good, and has been able to walk to the bathroom (noted to be walking the hallways shortly after). She states the swelling in her legs is still not back to normal but is slightly less than yesterday. Incision site for biopsy has not been irritating her. She denies, headache, eye pain, CP, tachycardia, SOB, abdominal pain, and vomiting. She reports the cough she has was from before she came to the hospital. Nurse notes patient exhibited some confusion last night, trying to get out of bed and go home but seems to have returned to normal as of this morning. Focused Exam Time of Focused Exam: 23:49 Objective Exam Vital Signs Date Time Temp Pulse Resp B/P (MAP) Pulse Ox O2 Delivery O2 Flow Rate FiO2 04/26/20 09:00 96 Room Air 0.00 04/26/20 08:00 96 Room Air 0.00 04/26/20 07:38 36.1 54 18 153/72 (99) 96 Room Air 04/26/20 07:09 57 04/26/20 04:00 93 Room Air 0.00 04/26/20 03:55 36.6 52 18 149/68 (95) 93 Room Air 04/26/20 01:00 50 04/26/20 00:18 96 Room Air 0.00 04/26/20 00:09 36.8 62 20 133/69 (90) 96 Room Air 0.00 0.00 04/25/20 20:30 93 Room Air 0.00 04/25/20 20:30 96 Room Air 0.00 04/25/20 19:10 36.8 51 18 148/69 (95) 93 Room Air 04/25/20 19:00 52 04/25/20 16:00 Room Air 04/25/20 15:53 37.0 50 18 175/82 (113) 96 Room Air 04/25/20 13:39 55 04/25/20 12:00 Room Air I & O 04/26/20 07:00 Intake Total 1050 ml Output Total 3275 ml Balance -2225 ml Capillary Refill : Less Than 3 Seconds General Appearance: No Apparent Distress, WD/WN HEENT: Other (incision is c/d/i) Neck: Non Tender, Supple; No Carotid Bruit Respiratory: Lungs Clear, Normal Breath Sounds, No Accessory Muscle Use, No Respiratory Distress Cardiovascular: Regular Rate, Rhythm, Normal Peripheral Pulses Peripheral Pulses: 2+ Carotid (R), 2+ Carotid (L), 2+ Dorsalis Pedis (R), 2+ Left Dors-Pedis (L), 2+ Radial Pulses (R), 2+ Radial Pulses (L) Gastrointestinal: normal bowel sounds, non tender, soft Extremity: Non Tender, No Calf Tenderness, Pedal Edema (mild improvement from yesterday) Neurologic/Psychiatric: Alert, Normal Mood/Affect, Disoriented (resolved as of this morning) Skin: Warm/Dry; No Jaundice Results Lab Laboratory Tests 04/26/20 04:40: White Blood Count 9.6, Red Blood Count 3.64L, Hemoglobin 11.5, Hematocrit 35, Mean Corpuscular Volume 95, Mean Corpuscular Hemoglobin 32, Mean Corpuscular Hemoglobin Concent 33, Red Cell Distribution Width 13.8, Platelet Count 252, Mean Platelet Volume 10.7H, Sodium Level 140, Potassium Level 3.1L, Chloride Level 100, Carbon Dioxide Level 33H, Anion Gap 7, Blood Urea Nitrogen 18, Creatinine 0.60, Estimat Glomerular Filtration Rate > 60, BUN/Creatinine Ratio 30, Glucose Level 88, Calcium Level 8.2L, Corrected Calcium 9.3, Total Bilirubin 0.8, Aspartate Amino Transf (AST/SGOT) 20, Alanine Aminotransferase (ALT/SGPT) 44, Alkaline Phosphatase 105, Total Protein 4.3L, Albumin 2.6L Microbiology 04/21/20 MRSA Screen - Final, Complete MRSA not isolated 04/20/20 Blood Culture - Preliminary, Resulted No growth 04/20/20 Urine Culture - Final, Complete NO GROWTH Assessment/Plan Assessment/Plan Assessment/Plan 1. Pneumonia/Sepsis-- 2. Cephalgia-- 3. Hypokalemia-- 4. Edema-- 5. Hypertension/Sinus Tachycardia-- 6. Weakness-- 7. Confusion-- Clinical Quality Measures DVT/VTE Risk/Contraindication: Risk Factor Score Per Nursin RFS Level Per Nursing on Admit: 4+=Very High ANDI ROCA DO 04/26/20 1113: Subjective Time Seen by a Provider: 09:52 Subjective/Events-last exam Pt seen and examined, states she is walking more but is not sure her swelling has changed. Review of Systems General: Fatigue, Malaise Pulmonary: No Dyspnea, No Cough Cardiovascular: No: Chest Pain, Palpitations Musculoskeletal: leg pain Objective Exam HEENT: Other (incision is c/d/i) Respiratory: Lungs Clear, Normal Breath Sounds, No Accessory Muscle Use, No Respiratory Distress Extremity: No Calf Tenderness, Pedal Edema (mild improvement from yesterday) Assessment/Plan Assessment/Plan Assessment/Plan LE edema HTN, Weakness Await pathology from temporal artery biopsy, continue SCD and Crescencio hose. Encourage ambulation. Supervisory-Addendum Brief Verification & Attestation Participated in pt care: history, MDM, physical Personally performed: exam, history, MDM Care discussed with: Medical Student Procedures: n/a Verification and Attestation of Medical Student E/M Service A medical student performed and documented this service. I then reviewed and verified all information documented by the medical student and made modifications to such information, when appropriate. I personally performed a physical exam, medical decision making and then discussed any differences between the notes and made revisions as necessary to create one note. Andi Roca , 04/26/20 , 11:13 ISIDRO BANEGAS MED STUDENT Apr 26, 2020 10:30 ANDI ROCA DO Apr 26, 2020 11:13
[2020-04-26] MEDS: meTOprolol TARTRATE 25 MG (LOPRESSOR) TABLET PO SCH ×2 (11:14→20:18)
[2020-04-26 11:33] VITALS: BP 132/66
[2020-04-26 16:00] VITALS: BP 119/69
[2020-04-26 20:00] VITALS: BP 129/65
[2020-04-26] MEDS ORDERED: predniSONE 20 MG TAB ONE (20:02)
[2020-04-26] MEDS: ACETAMINOPHEN 325 MG TABLET PO PRN (20:18)
[2020-04-26] MEDS: clonazePAM 0.5 MG (KlonoPIN) TAB PO PRN (20:18)
[2020-04-26] MEDS: LORazepam INJ 2 MG/ML (ATIVAN) VIAL IVP PRN (23:40)
--- NOTE | 2020-04-26 23:42 | NUR ---
c/o restless leg po med had been given ativan iv given as ordered at this time. dr palm made aware and will address medication changes in the am scds removed per pt request
[2020-04-27] VITALS: BP 118/65
--- NOTE | 2020-04-27 02:46 | NUR ---
0200 pt has cont to be restless c/o of her rls meds not helping.. this nurse placed pt in shower shampoo/condition hair and gave warm shower head to toe. bed linen changed . lotion all over new gown and replaced tele leads and put scds back on gave warm blanket. 0240 pt is resting quietly has stated the shower did help however still c/o rle but its better
[2020-04-27 04:00] VITALS: BP 118/72
[2020-04-27 05:26] LABS: BUN/CREATININE RATIO 29; CALCIUM 8.3 MG/DL (8.5-10.1); CARBON DIOXIDE 30 MMOL/L (21-32); CHLORIDE 104 MMOL/L (98-107); CREATININE SERUM 0.65 MG/DL (0.60-1.30); GFR ESTIMATED > 60; GLUCOSE 81 MG/DL (70-105); POTASSIUM 3.9 MMOL/L (3.6-5.0); SODIUM 141 MMOL/L (135-145)
[2020-04-27] MEDS: predniSONE 10 MG TAB PO SCH (06:29)
[2020-04-27 07:18] VITALS: BP 139/78
[2020-04-27] MEDS: SENNA W/DOCUSATE (SENOKOT S) TABLET PO SCH ×2 (08:48→21:19)
[2020-04-27] MEDS: ENOXAPARIN 40 MG/0.4 ML (LOVENOX) SYR SC SCH (08:48)
[2020-04-27] MEDS: KCL 10 MEQ TAB (MICRO K) PO SCH ×2 (08:48→17:50)
[2020-04-27] MEDS: LOSARTAN 25 MG (COZAAR) TAB PO SCH (08:50)
[2020-04-27] MEDS: meTOprolol TARTRATE 25 MG (LOPRESSOR) TABLET PO SCH ×2 (08:51→21:19)
--- NOTE | 2020-04-27 10:06 | NUR ---
KHUSHBOO/SAMARA visited with the patient for social service consult. Plan: The patient will discharge home with home health. Home Health: The patient and her have been following with Dr. Lacy. In their office visits they have discussed the option of home health. The patient and her have agreed on having home health and picked [facility]. They were attempting to set it up outside of the hospital; however, patient was then admitted again. CM/SS contacted [facility] and spoke with Lynsey to informed them of new referral. She verbalized understanding. Home: The patient's daughter Yarelis was present during the visit. She assisted the patient in discussing possible needs at home. The patient lives at home with her . She stated that her gets around fairly well, but does have some current and past medical history. At this time he is still able to do most of his ADL's. However, he does have to assist the patient at home with hers. The patient reports that she fells she can get around well at home without any assistive devices. The patient's daughter did verbalize that she had 2 falls at home. The patient then admitted to being a little unsteady. She states she will have 2 different walkers in the home in case she needs them. The patient states she has stairs on both entrances of the home but her son's put rails on both of them. She has a walk in shower and a jet tub. They are getting her a shower chair. Equipment: A front wheeled walker, walker without wheels, and shower stool. Support: The patient has her of 67 years, 5 children, grandchildren, and great grandchildren. She states that she is frequently visited by all of her family and has a great support system. The patient's daughter lives in [place], but she visits when she can. Will continue to follow and update [facility]. Addendum: 04/27/20 at 1130 by REG SHAHID CM/SS informed the patient and her daughter that referral was made. CM/SS took patient and daughter a list of agency caregivers and individual caregivers.
--- NOTE | 2020-04-27 10:12 | Physical Therapy Daily Note ---
PT Daily Note-Current Subjective Patient agrees to PT. She reports she is feeling better today. Pain Numeric Pain Scale: 0-No Pain Location: No Pain Reported Mental Status Patient Orientation: Normal For Age Transfers SCALE: Activities may be completed with or without assistive devices. 1-Xtgedlrgfe-wgnpbit completes the activity by him/herself with no assistance from a helper. 5-Set-up or Clean-up Assistance-helper sets up or cleans up; patient completes activity. [place] assists only prior to or following the activity. 4-Supervision or Touching Assistance-helper provides verbal cues and/or touching/steadying and/or contact guard assistance as patient completes activity. Assistance may be provided throughout the activity or intermittently. 3-Partial/Moderate Assistance-helper does LESS THAN HALF the effort. [place] lifts, holds or supports trunk or limbs, but provides less than half the effort. 2-Substantial/Maximal Assistance-helper does MORE THAN HALF the effort. [place] lifts or holds trunk or limbs and provides more than half the effort. 0-Evcjchpfn-aqsvco does ALL the effort. Patient does none of the effort to complete the activity. Or, the assistance of 2 or more helpers is required for the patient to complete the activity. If activity was not attempted, code reason: 7-Patient Refused. 9-Not Applicable-not attempted and the patient did not perform the activity before the current illness, exacerbation or injury. 10-Not Attempted due to Environmental Limitations-(lack of equipment, weather restraints, etc.). 88-Not Attempted due to Medical Conditions or Safety Concerns. Sit to Stand (QC): 6 Toilet Transfer (QC): 6 (patient toilets self) Gait Training Does the Patient Walk?: Yes Distance: 875' Walk 10 feet (QC): 6 Walk 50 ft with 2 Turns(QC): 6 Walk 150 ft (QC): 6 Gait Assistive Device: FWW slow, steady, functional gait sequence Exercises Supine Ex: Ankle pumps, Pelvic tilt, Straight leg raise Supine Reps: 12 (in recliner with bilateral LE elevated.) Seated Therapy Exercises: Ankle pumps, Long arc quads, Hip flexion Seated Reps: 12 Assessment Patient tolerated treatment well and returned to recliner. Patient continues to fatigue with activity, however, improving. PT Telecommunications Cable Jointer Goals Telecommunications Cable Jointer Goals PT Telecommunications Cable Jointer Goals Time Frame: May 01, 2020 Roll Left & Right (QC): 6 Sit to Lying (QC): 6 Lying-Sitting on Side/Bed(QC): 6 Sit to Stand (QC): 6 Chair/Gay-iz-Nbxne Xfer(QC): 6 Toilet Transfer (QC): 6 Does the Patient Walk: Yes Walk 10 feet (QC): 6 Walk 50ft with 2 Turns (QC): 6 Walk 150 ft (QC): 6 PT Plan Treatment/Plan Treatment Plan: Continue Plan of Care Treatment Plan: Bed Mobility, Education, Functional Activity Sergio, Functional Strength, Gait, Safety, Therapeutic Exercise, Transfers Treatment Duration: May 01, 2020 Frequency: 6 times per week Estimated Hrs Per Day: .25 hour per day Patient and/or Family Agrees t: Yes Time/GCodes Time In: 851 Time Out: 914 Total Billed Treatment Time: 23 Total Billed Treatment 1 visit EX 14 min FA 9 min BRIANNE HAINES PT Apr 27, 2020 10:12
[2020-04-27 11:32] VITALS: BP 129/73
--- NOTE | 2020-04-27 12:52 | Progress Note ---
Subjective Date Seen by a Provider: Apr 27, 2020 Time Seen by a Provider: 12:48 Subjective/Events-last exam Fwup pneumonia with sepsis, cephalgia, confusion, Hypertension, fall risk, hypokalemia. Sitting up in chair eating. Daughter at bedside. Family concerns are unsteady gait/fall risk if DC home. Focused Exam Time of Focused Exam: 23:49 Objective Exam Vital Signs Date Time Temp Pulse Resp B/P (MAP) Pulse Ox O2 Delivery O2 Flow Rate FiO2 04/27/20 12:15 63 04/27/20 11:32 36.6 63 18 129/73 (91) 95 Room Air 04/27/20 09:00 Room Air 04/27/20 07:18 36.3 57 18 139/78 (98) 96 Room Air 04/27/20 07:00 55 04/27/20 04:00 37.0 72 20 118/72 (87) 95 04/27/20 00:35 61 04/27/20 00:00 36.6 68 16 118/65 (82) 95 Room Air 0.00 0.00 04/26/20 21:00 36.7 04/26/20 21:00 94 Room Air 0.00 04/26/20 20:18 36.7 04/26/20 20:00 36.7 65 16 129/65 (86) 94 Room Air 04/26/20 19:00 64 04/26/20 16:00 36.8 66 18 119/69 (86) 97 Room Air 04/26/20 13:00 65 I & O 04/27/20 07:00 Intake Total 1700 ml Output Total 700 ml Balance 1000 ml Capillary Refill : Less Than 3 Seconds General Appearance: No Apparent Distress Respiratory: Lungs Clear Cardiovascular: Regular Rate, Rhythm, Systolic Murmur Gastrointestinal: normal bowel sounds, non tender, soft Extremity: Non Tender, No Calf Tenderness, Pedal Edema (to ankles--much improved) Neurologic/Psychiatric: Alert, Oriented x3 Skin: Warm/Dry Results Lab Laboratory Tests 04/27/20 04:07: Sodium Level 141, Potassium Level 3.9, Chloride Level 104, Carbon Dioxide Level 30, Anion Gap 7, Blood Urea Nitrogen 19H, Creatinine 0.65, Estimat Glomerular Filtration Rate > 60, BUN/Creatinine Ratio 29, Glucose Level 81, Calcium Level 8.3L Microbiology 04/21/20 MRSA Screen - Final, Complete MRSA not isolated 04/20/20 Blood Culture - Final, Complete No growth 04/20/20 Urine Culture - Final, Complete NO GROWTH Assessment/Plan Assessment/Plan Assess & Plan/Chief Complaint 1. Pneumonia/Sepsis--abx complete, on IS, awaiting final on tick titers 2. Cephalgia--resolved, had temporal artery biopsy 3. Hypokalemia--improved 4. Edema--improved 5. Hypertension/Sinus Tachycardia--on metoprolol with pulse down to 50s and 60s 6. Weakness/Fall Risk/Unsteady Gait--multifactorial--doing PT but need to get up to the chair and increase activity, rehab eval, discussed SNF with daughter but she states she feels patient would be resistant to that option 7. Confusion--decreased prednisone dose yesterday in case contributing and would plan on decreasing again tomorrow Clinical Quality Measures DVT/VTE Risk/Contraindication: Risk Factor Score Per Nursin RFS Level Per Nursing on Admit: 4+=Very High KEYLA ENCINAS DO Apr 27, 2020 12:52
--- NOTE | 2020-04-27 13:49 | NUR ---
IRF Evaluation Determination: Denied Explanation: Upon completion of chart review, it appears patient is ambulating (875ft, FWW) and transferring with independence; therefore, patient does not require intensive therapies, at this time. Thank you for this referral.
--- NOTE | 2020-04-27 15:00 | Occupational Ther Daily Note ---
OT Current Status-Daily Note Subjective Pt seen EOB with daughter present. Pt denies pain, alert/ oriented. Pt agreeable to OT tx session, though states she is very tired. Mental Status/Objective Patient Orientation: Person, Place, Situation ADL-Treatment Therapy Code Descriptions/Definitions Functional [place] Measure: 0=Not Assessed/NA 4=Minimal Assistance 1=Total Assistance 5=Supervision or Setup 2=Maximal Assistance 6=Modified [place] 3=Moderate Assistance 7=Complete IndependenceSCALE: Activities may be completed with or without assistive devices. 5-Rrjpqloxhn-hwlywgu completes the activity by him/herself with no assistance from a helper. 5-Set-up or Clean-up Assistance-helper sets up or cleans up; patient completes activity. [place] assists only prior to or following the activity. 4-Supervision or Touching Assistance-helper provides verbal cues and/or touching/steadying and/or contact guard assistance as patient completes activity. Assistance may be provided throughout the activity or intermittently. 3-Partial/Moderate Assistance-helper does LESS THAN HALF the effort. [place] lifts, holds or supports trunk or limbs, but provides less than half the effort. 2-Substantial/Maximal Assistance-helper does MORE THAN HALF the effort. [place] lifts or holds trunk or limbs and provides more than half the effort. 5-Olmugnene-mibodf does ALL the effort. Patient does none of the effort to complete the activity. Or, the assistance of 2 or more helpers is required for the patient to complete the activity. If activity was not attempted, code reason: 7-Patient Refused. 9-Not Applicable-not attempted and the patient did not perform the activity before the current illness, exacerbation or injury. 10-Not Attempted due to Environmental Limitations-(lack of equipment, weather restraints, etc.). 88-Not Attempted due to Medical Conditions or Safety Concerns. Other Treatment Pt continues to have pitting edema (RLE- dorsum of foot). Pt encouraged to complete calf pumps/ ankle circles for added edema control. Pt agrees. Pt stands to complete UE theraband ex for higher fx activity tolerance and balance. Pt stands at walker level, completing 15 reps bilaterally of 5 different exercises. Pt keeps hands from walker for support the entire session. No LOB during tasks. Pt requires rest break, sits to complete 2 added exercises. Pt returns to bed with SBA, all needs met, call light in reach, daughter present. Pt educated to complete ex this pm as well. Education OT Patient Education: Correct positioning, Exercise program, Home exercise pr ogram, Purpose of tx/functional activities, Safety issues Teaching Recipient: Patient Teaching Methods: Demonstration, Discussion Response to Teaching: Verbalize Understanding, Return Demonstration OT Supervisor [facility] Goals Supervisor [facility] Goals Time Frame: Apr 28, 2020 Eating (QC): 6 Oral Hygiene (QC): 6 Toileting Hygiene (QC): 4 Shower/Bathe Self (QC): 4 Upper Body Dressing (QC): 6 Lower Body Dressing (QC): 4 On/Off Footwear (QC): 4 Additional Goals: 1-Demonstrate ADL Tasks, 2-Verbalize Understanding, 3- ImproveStrength/Sergio 1=Demonstrate adherence to instructed precautions during ADL tasks. 2=Patient will verbalize/demonstrate understanding of assistive devices/modifications for ADL. 3=Patient will improve strength/tolerance for activity to enable patient to perform ADL's. OT Education/Plan Problem List/Assessment Assessment: Decreased Activ Tolerance, Decreased UE Strength, Dependent Transfers, Edema, Impaired I ADL's, Impaired Self-Care Skills Discharge Recommendations Plan/Recommendations: Continue POC Therapy Discharge Recommendati: Home & Family Treatment Plan/Plan of Care Treatment,Training & Education: Yes Patient would benefit from OT for education, treatment and training to promote independence in ADL's, mobility, safety and/or upper extremity function for ADL's. Plan of Care: ADL Retraining, Caregiver Training, Functional Mobility, UE Funct Exercise/Act Treatment Duration: Apr 28, 2020 Frequency: 5 times per week Estimated Hrs Per Day: .25 hour per day Agreement: Yes Rehab Potential: Fair Time/GCodes Start Time: 13:48 Stop Time: 14:00 Total Time Billed (hr/min): 12 Billed Treatment Time 1, EX (12) CHANA MURILLO OTR Apr 27, 2020 15:00
[2020-04-27 15:45] VITALS: BP 148/71
[2020-04-27 20:00] VITALS: BP 151/77
[2020-04-27] MEDS: clonazePAM 0.5 MG (KlonoPIN) TAB PO PRN (21:19)
[2020-04-28 00:06] VITALS: BP 148/64
[2020-04-28 04:42] VITALS: BP 143/56
[2020-04-28] MEDS: predniSONE 10 MG TAB PO SCH (06:28)
--- NOTE | 2020-04-28 07:28 | Progress Note - Surgery ---
RENETTAAYO MED STUDENT 04/28/20 0728: Subjective Date Seen by a Provider: Apr 28, 2020 Time Seen by a Provider: 06:45 Subjective/Events-last exam Pt comfortable laying in bed. Denies any pain, headaches, or vision changes. Incision site looks clean with no visible signs of infection. Pt states she is feeling good and is ready to go home. Denies n/v, fever, chest pain, sob. Focused Exam Time of Focused Exam: 23:49 Objective Exam Vital Signs Date Time Temp Pulse Resp B/P (MAP) Pulse Ox O2 Delivery O2 Flow Rate FiO2 04/28/20 04:42 36.8 54 16 143/56 (85) 94 Room Air 04/28/20 01:00 50 04/28/20 00:06 36.7 57 16 148/64 (92) 96 Room Air 04/27/20 21:15 Room Air 04/27/20 20:00 36.5 66 20 151/77 (101) 93 Room Air 04/27/20 19:00 73 04/27/20 15:45 36.1 59 18 148/71 (96) 96 Room Air 04/27/20 12:15 63 04/27/20 11:32 36.6 63 18 129/73 (91) 95 Room Air 04/27/20 09:00 Room Air I & O 04/28/20 07:00 Intake Total 2095 ml Output Total 350 ml Balance 1745 ml Capillary Refill : Less Than 3 Seconds General Appearance: No Apparent Distress HEENT: PERRL/EOMI, Other (incision is c/d/i) Neck: Non Tender, Supple; No Carotid Bruit Respiratory: Chest Non Tender, Lungs Clear, No Accessory Muscle Use, No Respiratory Distress Cardiovascular: Regular Rate, Rhythm, Systolic Murmur Peripheral Pulses: 2+ Carotid (R), 2+ Carotid (L), 2+ Dorsalis Pedis (R), 2+ Left Dors-Pedis (L), 2+ Radial Pulses (R), 2+ Radial Pulses (L) Gastrointestinal: normal bowel sounds, non tender, soft Extremity: Non Tender, No Calf Tenderness, Pedal Edema (to ankles--much improved) Neurologic/Psychiatric: Alert, Oriented x3 Skin: Normal Color, Warm/Dry Results Lab Microbiology 04/21/20 MRSA Screen - Final, Complete MRSA not isolated 04/20/20 Blood Culture - Final, Complete No growth 04/20/20 Urine Culture - Final, Complete NO GROWTH Assessment/Plan Assessment/Plan Assessment/Plan temporal artery biopsy continue to monitor healing of incision site Clinical Quality Measures DVT/VTE Risk/Contraindication: Risk Factor Score Per Nursin RFS Level Per Nursing on Admit: 4+=Very High SCARLET MEJÍA 04/28/20 1546: AYO JACKSON MED STUDENT Apr 28, 2020 07:28 SCARLET MEJÍA Apr 28, 2020 15:46
[2020-04-28 08:00] VITALS: BP 127/68
[2020-04-28] MEDS ORDERED: METO-333 PO (09:13)
[2020-04-28] MEDS ORDERED: POTA10TA6 PO (09:13)
[2020-04-28] MEDS ORDERED: PRD10T PO (09:13)
[2020-04-28] MEDS ORDERED: LOSA25TA41 PO (09:13)
--- NOTE | 2020-04-28 09:17 | D/C HH Face to Face Order ---
D/C Face to Face Orders Instructions for Patient Via [employer], Patient Instructions/FollowUp: 1 wk with cardiology clinic for ECHO 1 week with [facility] Physician to follow Patient: chester Discharge Diet for Home: Regular Diet Patient Problems: UTI Hypertension Hypokalemia Weakness Gait instability Confusion Mild cognitivie Impairment Goals for Patient: improved strength, independence in home Patient Data-Allergies,Ht & Wt Patient Allergies: Coded Allergies: Penicillins (Verified Allergy, Unknown, 07/10/19) Uncoded Allergies: NOVACAINE (Allergy, Mild, 09/07/09) red meat (Allergy, Mild, Vomiting, 04/18/20) Height (Feet): 5 Height (Inches): 6.00 Weight (Pounds): 190 [facility] Need/Face to Face Date of Face to Face: Apr 28, 2020 Clinical Findings: Muscle weakness, Unsteady gait the ALPHA GAL test for beef allergy was NEGATIVE I have seen Pt sszp-ee-thzz: Yes Discharged To: Home Diagnosis/Conditions: UTI Hypertension Hypokalemia Weakness Gait instability Confusion Mild cognitivie Impairment Patient is Homebound due to: [place] fall risk due to instabilty, Muscle weakness Homebound Status Due to the above stated illness, injury or surgical procedure (medical condition or diagnosis) and associated clinical findings, the patient is homebound because of his/her inability to leave home except with aid of a supportive device and/or person AND leaving the home requires a considerable and taxing effort or is medically contraindicated. Pt req the following assistanc: Walker Home Health Nursing Orders Home Health Services Order: Nursing Services, Physical Therapy-Evaluate & Treat remove sutures on Left cheek on 05/04/2020 - place steri strips over the incision site when removing sutures. BMP, magnesium on 05/01/2020 CBC, CMP on 05/04/2020 Home Health Infusion Therapy Line Start Date: Apr 20, 2020 Therapy Orders Therapy Orders: PT to assess for OT Therapy Specific Orders: Eval assistive deivces, Teach enviro modifications/safety, Gait training, Increase strength/endurance Certify Stmt I certify that this patient is under my care and that I, a nurse practitioner or a physician; a medical assistant working with me, had a face to face encounter that - meets the physician face to face encounter requirements with this patient as dated. Medication List: Active Scripts Active Prednisone 10 Mg Tab 10 Mg PO UD 4tabs daily x 2days, 3tabs daily x 2days, 2tabs daily x 2days, 1tab daily x 2days, 1/2 tab daily x 2 days then stop Klor-Con 10 (Potassium Chloride) 10 Meq Tablet.er 10 Meq PO BID WITH MEALS Metoprolol Tartrate 25 Mg Tablet 12.5 Mg PO BID take 1/2 of a 25mg tablet twice daily Losartan Potassium 25 Mg Tablet 25 Mg PO DAILY Cholestyramine Light Packet (Cholestyramine/Aspartame) 4 Gm Powd.pack 4 Gm PO DAILY PRN Cefdinir 300 Mg Capsule 300 Mg PO BID 7 Days Reported Turmeric 500 mg Capsule (Turmeric/Turmeric Root Extract) 1 Each Capsule 1 Each PO DAILY Clonazepam 0.5 Mg Tablet 0.5 Mg PO HS PRN Vitamin D3 (Cholecalciferol (Vitamin D3)) 25 Mcg Tablet 25 Mcg PO DAILY [Vitamin Pack] 1 Packet PO DAILY RESUME SPIRONOLACTONE as prescribed by Dr. Baird My orders: Orders - TERESA ALAMO MD Patient Visit (04/27/20 ) Exercise Therap, Ea 15 Min (04/27/20 ) Functional Activities, Ea 15 (04/27/20 ) Attending Discharge Inpt/Inobs (04/28/20 09:08) [facility] Dischage (04/28/20 09:08) TERESA ALAMO MD Apr 28, 2020 09:17
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
--- NOTE | 2020-04-28 09:38 | NUR ---
CM/SS finalized discharge. Plan: Patient will discharge today 04/28 with [facility]. CM/SS contacted Ema to inform her that patient's discharge and home health orders were in. She verbalized understanding. The patient was sitting up in the chair while daughter was helping pack up room for discharge. The patient reports that she is feeling well today and is able to leave. She denied any further needs from this sw. The patient's daughter denied any further questions.
[2020-04-28] MEDS: SENNA W/DOCUSATE (SENOKOT S) TABLET PO SCH (09:45)
[2020-04-28] MEDS: LOSARTAN 25 MG (COZAAR) TAB PO SCH (09:45)
[2020-04-28] MEDS: KCL 10 MEQ TAB (MICRO K) PO SCH (09:45)
[2020-04-28] MEDS: ENOXAPARIN 40 MG/0.4 ML (LOVENOX) SYR SC SCH (09:45)
[2020-04-28] MEDS: meTOprolol TARTRATE 25 MG (LOPRESSOR) TABLET PO SCH (09:45)
--- NOTE | 2020-04-28 09:53 | Physical Therapy Daily Note ---
PT Daily Note-Current Subjective Patient is in bed and agrees to PT. No c/o. Mental Status Patient Orientation: Normal For Age Transfers SCALE: Activities may be completed with or without assistive devices. 7-Meqirtrwkf-tqpgppc completes the activity by him/herself with no assistance from a helper. 5-Set-up or Clean-up Assistance-helper sets up or cleans up; patient completes activity. [place] assists only prior to or following the activity. 4-Supervision or Touching Assistance-helper provides verbal cues and/or touching/steadying and/or contact guard assistance as patient completes activity. Assistance may be provided throughout the activity or intermittently. 3-Partial/Moderate Assistance-helper does LESS THAN HALF the effort. [place] lifts, holds or supports trunk or limbs, but provides less than half the effort. 2-Substantial/Maximal Assistance-helper does MORE THAN HALF the effort. [place] lifts or holds trunk or limbs and provides more than half the effort. 6-Bmqranule-bblwep does ALL the effort. Patient does none of the effort to complete the activity. Or, the assistance of 2 or more helpers is required for the patient to complete the activity. If activity was not attempted, code reason: 7-Patient Refused. 9-Not Applicable-not attempted and the patient did not perform the activity before the current illness, exacerbation or injury. 10-Not Attempted due to Environmental Limitations-(lack of equipment, weather restraints, etc.). 88-Not Attempted due to Medical Conditions or Safety Concerns. Roll Left & Right (QC): 6 Lying to Sitting/Side of Bed(Q: 6 Sit to Stand (QC): 6 Chair/Tyb-pn-Qzfaf Xfer(QC): 6 Toilet Transfer (QC): 6 Gait Training Does the Patient Walk?: Yes Distance: 650' Walk 10 feet (QC): 6 Walk 50 ft with 2 Turns(QC): 6 Walk 150 ft (QC): 6 Gait Assistive Device: FWW slow, steady, functional gait sequence Exercises Supine Ex: Ankle pumps, Quad Set, Heel Slides, Straight leg raise Supine Reps: 15 Assessment Patient tolerated treatment and will dismiss to home on this date with home health and family support. PT Social Media Developer Goals Social Media Developer Goals PT Social Media Developer Goals Time Frame: May 01, 2020 Roll Left & Right (QC): 6 Sit to Lying (QC): 6 Lying-Sitting on Side/Bed(QC): 6 Sit to Stand (QC): 6 Chair/Aqk-km-Ngose Xfer(QC): 6 Toilet Transfer (QC): 6 Does the Patient Walk: Yes Walk 10 feet (QC): 6 Walk 50ft with 2 Turns (QC): 6 Walk 150 ft (QC): 6 PT Plan Treatment/Plan Treatment Plan: Discontinue PT, goals met Treatment Plan: Bed Mobility, Education, Functional Activity Sergio, Functional Strength, Gait, Safety, Therapeutic Exercise, Transfers Treatment Duration: May 01, 2020 Frequency: 6 times per week Estimated Hrs Per Day: .25 hour per day Patient and/or Family Agrees t: Yes Time/GCodes Time In: 806 Time Out: 834 Total Billed Treatment Time: 28 Total Billed Treatment 1 visit FA 14 min EX 14 min BRIANNE HAINES PT Apr 28, 2020 09:53
[2020-04-28 10:30] VITALS: BP 127/68
== END 2020-04-28 10:45 | disposition home health service (06) | DRG 853 ==
LOC: EDUNIT# 22:06 → ER 22:06 → ICU 23:45 → UNDOADMIN 04-21 → ICU 04-21 → CSD 04-22 20:51 → 4TH 04-25 14:18
PROVIDERS: ADMIT Family Medicine; ATTEND Family Medicine
PROC: 03BT0ZX Excision of Left Temporal Artery, Open Approach, Diagnostic (ICD-10-PCS; principal; 2020-04-23 16:52)
DX: A41.9 Sepsis, unspecified organism (principal); R65.21 Severe sepsis with septic shock; J18.9 Pneumonia, unspecified organism; N39.0 Urinary tract infection, site not specified; J81.1 Chronic pulmonary edema; R74.8 Abnormal levels of other serum enzymes; G25.81 Restless legs syndrome; E87.6 Hypokalemia; M31.6 Other giant cell arteritis; I10 Essential (primary) hypertension; M19.91 Primary osteoarthritis, unspecified site; M81.0 Age-related osteoporosis without current pathological fracture; F41.9 Anxiety disorder, unspecified; E66.9 Obesity, unspecified; G43.909 Migraine, unspecified, not intractable, without status migrainosus; J32.9 Chronic sinusitis, unspecified; Z85.118 Personal history of other malignant neoplasm of bronchus and lung; Z68.30 Body mass index [BMI] 30.0-30.9, adult; Z88.0 Allergy status to penicillin
CPT/HCPCS: 36415; 70450; 70553; 71045; 80048; 80053; 80170; 81000; 83605; 83735; 83880; 85007; 85025; 85027; 85610; 85652; 85730; 86141; 86618; 86666; 86668; 86757; 87040; 87081; 87088; 88305; 93005; 96361; 96365

== ENCOUNTER → 2020-05-21 | Outpatient (CLI) | payer MEDICARE, OTHER ==
[~2020-05-21] MED LIST changes: +LOSA25TA41 PO; +METO-333 PO; +POTA10TA6 PO; +PRD10T PO
== END ==
LOC: CARD 09:36
PROVIDERS: ATTEND Student in an Organized Health Care Education/Training Program
DX: I35.8 Other nonrheumatic aortic valve disorders (principal); I51.7 Cardiomegaly; R01.1 Cardiac murmur, unspecified
CPT/HCPCS: 93306

== ENCOUNTER → 2020-06-23 | Outpatient (CLI) | payer MEDICARE, OTHER ==
--- NOTE | 2020-06-23 13:19 | Diagnostic Imaging Report ---
INDICATION: Routine screening. COMPARISON: 06/19/2019 and 05/24/2018. TECHNIQUE: 2D and 3D bilateral screening mammography was performed with CAD. FINDINGS: Scattered fibroglandular densities are identified bilaterally. There are benign parenchymal and vascular calcifications bilaterally. No mass or malignant appearing microcalcifications are seen. The axillae are unremarkable. IMPRESSION: No mammographic features suspicious for malignancy are identified. ACR BI-RADS Category 2: Benign findings. Result letter will be mailed to the patient. Note: At least 10% of breast cancer is not imaged by mammography. Dictated by: Dictated on workstation # [id number]
== END ==
LOC: RAD 10:45
PROVIDERS: ATTEND Nurse Practitioner Family
DX: Z12.31 Encounter for screening mammogram for malignant neoplasm of breast (principal)
CPT/HCPCS: 77063; 77067

== ENCOUNTER → 2020-12-15 | Outpatient (CLI) | payer MEDICARE, OTHER ==
--- NOTE | 2020-12-15 16:44 | Diagnostic Imaging Report ---
INDICATION: Left rib pain, fall. TIME OF EXAM: 3:12 PM Three views of the left ribs were obtained. No displaced rib fracture is detected. No parenchymal, effusion or pneumothorax is detected. IMPRESSION: No acute abnormality is detected. Dictated by: Dictated on workstation # [id number]
== END ==
LOC: RAD 14:58
PROVIDERS: ATTEND Nurse Practitioner Family
DX: R07.81 Pleurodynia (principal)
CPT/HCPCS: 71100

== ENCOUNTER → 2021-06-29 | Outpatient (CLI) | payer MEDICARE, OTHER ==
[~2021-06-29] MED LIST changes: +CHOL10004 PO; -CHOL100045 PO
--- NOTE | 2021-06-29 09:20 | Diagnostic Imaging Report ---
INDICATION: Postmenopausal. COMPARISON: None. FINDINGS: The bone mineral density of the spine, hips, and femoral necks was measured. The total T score for the spine is 1.1. This does indicate mild osteopenia. The total T score for the left hip is -1.6 and for the right hip -1.9. The T score for the left femoral neck is -2.1 and for the right femoral neck -1.9. All of these values fall within the range of osteopenia. AP Spine L1-L4: [BMD (g/cm2): 1.328] [T-Score: 1.1] [Z-Score: 2.7] [BMD Previous: NA] [BMD % Change: NA] LT Hip Neck: [BMD (g/cm2): 0.748] [T-Score: -2.1] [Z-Score: 0.1] LT Hip Total: [BMD (g/cm2):0.802] [T-Score:-1.6] [Z-Score: 0.4] [BMD Previous: NA] [BMD % Change: NA] RT Hip Neck: [BMD (g/cm2):0.770] [T-Score:-1.9] [Z-Score:0.3] RT Hip Total: [BMD (g/cm2):0.763] [T-score:-1.9] [Z-Score:0.1] [BMD Previous:NA] [BMD % Change:NA] *Indicates significant change from prior examination based on 95% confidence level. World Health Organization criteria for BMD interpretation classify patients as Normal (T-score at or above -1.0), Osteopenic (T-score between -1.0 and -2.5) or Osteoporotic (T-score at or below -2.5). LIMITATIONS AND MODIFICATION: None. FRACTURE RISK (FRAX SCORE): The ten year probability of (%): Major Osteoporotic Fracture: [16.5] Hip Fracture: [5.3] IMPRESSION: 1. There is osteopenia of the hips and femoral necks and mild osteopenia of the spine. 2. See below National Osteoporosis Foundation guidelines on when to potentially initiate pharmacologic therapy. Based on the National Osteoporosis Foundation Guidelines, pharmacologic treatment should be initiated in any of the following, unless clinical conditions suggest otherwise: * Any patient with prior fragility fracture of the hip or vertebrae. A spine fracture indicates 5X risk for subsequent spine fracture and 2X risk for subsequent hip fracture. * Osteoporosis (T-score <-2.5). * Postmenopausal women and men age 50 and older with low bone mass/osteopenia (T-score between -1.0 and -2.5) by DXA and 10-year major osteoporotic fracture greater than 20% or a 10-year probability of hip fracture greater than 3%. These fracture risks are supplied above in the FRAX score, if applicable. * Clinician judgement and/or patient preferences may indicate treatment for people with 10-year fracture probabilities above or below these levels. Dictated by: Dictated on workstation # [id number]
--- NOTE | 2021-06-29 15:39 | Diagnostic Imaging Report ---
EXAMINATION: Digital mammogram bilateral screening with CAD. INDICATION: Screening. COMPARISON: This study was compared to the prior exams of 06/23/2020, 06/19/2019, and 05/24/2018. FINDINGS: At this time, there are no current complaints. There are scattered fibroglandular densities in both breasts which could obscure a lesion. Overall, there does not appear to have been any significant change when compared to the prior exam. No primary or secondary sign of malignancy is noted. IMPRESSION: There is no radiographic evidence for malignancy. ACR BI-RADS Category 1: Negative. Result letter will be mailed to the patient. Note: At least 10% of breast cancer is not imaged by mammography. Dictated by: Dictated on workstation # [id number]
== END ==
LOC: RAD 08:39
PROVIDERS: ATTEND Family Medicine
DX: Z12.31 Encounter for screening mammogram for malignant neoplasm of breast (principal); M85.89 Other specified disorders of bone density and structure, multiple sites; Z78.0 Asymptomatic menopausal state
CPT/HCPCS: 77063; 77067; 77080

== ENCOUNTER 2022-03-08 09:55 | Emergency (ER) | payer MEDICARE, OTHER ==
[~2022-03-08 09:55] MED LIST changes: -CHOL4PAC PO; +CHOL4POW13 PO; +POTA-160 PO; -POTA10TA6 PO; +TRIA1CAP84 PO
[2022-03-08 10:31] LABS: BASOPHILS % (AUTO) 1 % (0-10); EOSINOPHILS # (AUTO) 0.1 10^3/uL (0.0-0.3); EOSINOPHILS % (AUTO) 2 % (0-10); HEMATOCRIT 39 % (35-52); HEMOGLOBIN 13.1 g/dL (11.5-16.0); LYMPHOCYTES # (AUTO) 0.9 10^3/uL (1.0-4.0); LYMPHOCYTES % (AUTO) 23 % (12-44); MEAN CORPUSCULAR HEMOGLOBIN 33 pg (25-34); MEAN CORPUSCULAR HGB CONC 34 g/dL (32-36); MEAN CORPUSCULAR VOLUME 98 fL (80-99); MEAN PLATELET VOLUME 10.5 fL (9.0-12.2); MONOCYTES # (AUTO) 0.3 10^3/uL (0.0-1.0); MONOCYTES % (AUTO) 8 % (0-12); NEUTROPHILS # (AUTO) 2.5 10^3/uL (1.8-7.8); NEUTROPHILS % (AUTO) 65 % (42-75); PLATELET COUNT 194 10^3/uL (130-400); WHITE BLOOD COUNT 3.9 10^3/uL (4.3-11.0)
[2022-03-08 10:36] LABS: ALBUMIN 3.6 GM/DL (3.2-4.5); POTASSIUM 4.3 MMOL/L (3.6-5.0)
[2022-03-08 10:37] LABS: CALCIUM 8.8 MG/DL (8.5-10.1)
[2022-03-08 10:40] LABS: BILIRUBIN,TOTAL 0.4 MG/DL (0.1-1.0)
[2022-03-08 10:42] LABS: CREATININE SERUM 0.75 MG/DL (0.60-1.30)
[2022-03-08 10:45] LABS: MAGNESIUM 1.9 MG/DL (1.6-2.4)
[2022-03-08 11:22] LABS: BILIRUBIN,URINE NEGATIVE (NEGATIVE); CLARITY,URINE CLEAR; COLOR,URINE YELLOW; GLUCOSE, URINE (UA) NEGATIVE (NEGATIVE); KETONES,URINE NEGATIVE (NEGATIVE); LEUKOCYTE ESTERASE ,URINE TRACE (NEGATIVE); NITRITE,URINE NEGATIVE (NEGATIVE); PH,URINE 5.5 (5-9); PROTEIN,URINE NEGATIVE (NEGATIVE)
[2022-03-08 11:34] LABS: BACTERIA,URINE FEW /HPF; RBC,URINE 0-2 /HPF
--- NOTE | 2022-03-08 11:42 | Diagnostic Imaging Report ---
INDICATION: Cough. COMPARISON: 04/22/2020. FINDINGS: Lungs are clear. No failure, effusion or pneumothorax. Upper limits heart size present. Previous failure pattern has all resolved. IMPRESSION: Upper limits heart size but decreased from prior. Resolution of prior edema and vascular congestion. Clear lungs at today's exam. Dictated by: Dictated on workstation # [id number]
[2022-03-08] MEDS ORDERED: LACTATED RINGERS 1,000 ML IV ONE (11:45)
--- NOTE | 2022-03-08 13:11 | ED General ---
General Chief Complaint: General Problems/Pain Stated Complaint: WEAKNESS Nursing Triage Note: PT TP RM 6 WITH SPOUSE WITH C.O DIZZINESS, WEAKNESS AND FEELING COLD FOR ABOUT 2 MONTHS. PTS SPOUSE SAID THEY WERE UNABLE TO GET A DOCTORS APPOINTENT TODAY Source of Information: Patient Exam Limitations: No Limitations History of Present Illness Date Seen by Provider: Mar 08, 2022 Time Seen by Provider: 10:00 Initial Comments This 87-year-old woman presents to the emergency room with complaints of a few days of chills, body aches, mild cough, and diarrhea. She and her states she has had no energy. She had a recent UTI treated in December. A urinalysis performed at the clinic earlier today reportedly was negative. Patient is afebrile. She has mildly hypotensive during assessment. She is COVID vaccinated. Allergies and Home Medications Allergies Coded Allergies: Penicillins (Verified Allergy, Unknown, 07/10/19) Uncoded Allergies: NOVACAINE (Allergy, Mild, 09/07/09) red meat (Allergy, Mild, Vomiting, 04/18/20) Patient Home Medication List Home Medication List Reviewed: Yes Cholecalciferol (Vitamin D3) (Vitamin D3) 25 Mcg Tablet, 25 MCG PO DAILY, (Reported) Entered as Reported by: PEPE FORDE on 04/17/20943 Cholestyramine/Aspartame (Cholestyramine Light Packet) 4 Gm Powd.pack, 4 GM PO DAILY PRN for DIARRHEA Prescribed by: NEGIN GUAJARDO on 04/19/20 1042 Clonazepam (Clonazepam) 0.5 Mg Tablet, 0.5 MG PO HS PRN for RESTLESSNESS, (Reported) Entered as Reported by: PEPE FORDE on 04/17/20 09 Losartan Potassium (Losartan Potassium) 25 Mg Tablet, 25 MG PO DAILY Prescribed by: TERESA ALAMO on 04/28/20912 Metoprolol Tartrate (Metoprolol Tartrate) 25 Mg Tablet, 12.5 MG PO BID Prescribed by: TERESA ALAMO on 04/28/20912 Potassium Chloride (Klor-Con 10) 10 Meq Tablet.er, 10 MEQ PO BID WITH MEALS Prescribed by: TERESA ALAMO on 04/28/20912 Prednisone (Prednisone) 10 Mg Tab, 10 MG PO UD Prescribed by: TERESA ALAMO on 04/28/20912 Turmeric/Turmeric Root Extract (Turmeric 500 mg Capsule) 1 Each Capsule, 1 EACH PO DAILY, (Reported) Entered as Reported by: PEPE FORDE on 04/17/20 0944 [Vitamin Pack] , 1 PACKET PO DAILY, (Reported) Entered as Reported by: ARMANDO MEZA on 07/10/19 1343 Review of Systems Review of Systems Constitutional: see HPI EENTM: no symptoms reported Respiratory: see HPI Cardiovascular: no symptoms reported Gastrointestinal: see HPI Genitourinary: see HPI : No Musculoskeletal: see HPI Skin: no symptoms reported Psychiatric/Neurological: No Symptoms Reported Hematologic/Lymphatic: No Symptoms Reported Immunological/Allergic: no symptoms reported Past Vxajeqr-Wmxoss-Jafsfk Hx Patient Social History Tobacco Use?: No Use of E-Cig and/or Vaping dev: No Substance use?: No Alcohol Use?: No Pt feels they are or have been: No Immunizations Up To Date Tetanus Booster (TDap): Unknown PED Vaccines UTD: No Influenza Vaccine Up-to-Date: Yes; Up-to-Date First/Initial COVID19 Vaccinat: 2020 Second COVID19 Vaccination Daniel: 2020 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: [employer] Seasonal Allergies Seasonal Allergies: No Past Medical History Surgery/Hospitalization HX: HX OF LUNG CANCER PARTIAL LUNG REMOVAL, HYSTO Surgeries: Yes Hysterectomy, Lobectomy Respiratory: No Currently Using CPAP: No Currently Using BIPAP: No Cardiac: Yes Neurological: No : No Reproductive Disorders: No [employer] History: Menopausal Sexually Transmitted Disease: No HIV/AIDS: No Genitourinary: Yes UTI-Chronic Gastrointestinal: No Musculoskeletal: Yes Osteoporosis, Arthritis, Chronic Back Pain Endocrine: No HEENT: No Loss of Vision: Denies Hearing Impairment: Hard of Hearing Cancer: Yes Lung Did You Recieve Any Treatments: Yes What Type of Treatment Did You: Surgical Intervention Psychosocial: Yes Anxiety Integumentary: No Psoriasis Blood Disorders: No Family Medical History Cardiovascular disease 19 MOTHER Congenital disease 19 FATHER Heart Disease, Hypertension Physical Exam Vital Signs Vital Signs - First Documented 03/08/22 10:10 Temp 36.3 Pulse 52 Resp 13 B/P (MAP) 105/59 (74) Pulse Ox 95 O2 Delivery Room Air Capillary Refill : Height, Weight, BMI Height: 5'6.00" Weight: 190lbs. oz. 86.048410wn; 28.97 BMI Method:Stated General Appearance: No Apparent Distress, WD/WN HEENT: PERRL/EOMI, Normal ENT Inspection, Pharynx Normal Neck: Normal Inspection; No JVD Respiratory: Lungs Clear, Normal Breath Sounds, No Accessory Muscle Use Cardiovascular: Regular Rate, Rhythm, No Edema, Systolic Murmur Gastrointestinal: Normal Bowel Sounds, Non Tender, Soft Extremity: Normal Inspection, No Pedal Edema Neurologic/Psychiatric: Alert, Oriented x3, No Motor/Sensory Deficits, Normal Mood/Affect, nurse monitoring II-XII Norm as Tested Skin: Normal Color, Warm/Dry Progress/Results/Core Measures Suspected Sepsis SIRS Temperature: Pulse: 52 Respiratory Rate: 13 Laboratory Tests 03/08/22 10:17: White Blood Count 3.9L Blood Pressure 105 /59 Mean: 74 Laboratory Tests 03/08/22 10:17: Creatinine 0.75, Platelet Count 194, Total Bilirubin 0.4 Results/Orders Lab Results Laboratory Tests Test 03/08/22 10:17 03/08/22 10:23 03/08/22 11:12 Range/Units White Blood Count 3.9 L 4.3-11.0 10^3/uL Red Blood Count 4.00 3.80-5.11 10^6/uL Hemoglobin 13.1 11.5-16.0 g/dL Hematocrit 39 35-52 % Mean Corpuscular Volume 98 80-99 fL Mean Corpuscular Hemoglobin 33 25-34 pg Mean Corpuscular Hemoglobin Concent 34 32-36 g/dL Red Cell Distribution Width 13.0 10.0-14.5 % Platelet Count 194 130-400 10^3/uL Mean Platelet Volume 10.5 9.0-12.2 fL Immature Granulocyte % (Auto) 0 % Neutrophils (%) (Auto) 65 42-75 % Lymphocytes (%) (Auto) 23 12-44 % Monocytes (%) (Auto) 8 0-12 % Eosinophils (%) (Auto) 2 0-10 % Basophils (%) (Auto) 1 0-10 % Neutrophils # (Auto) 2.5 1.8-7.8 10^3/uL Lymphocytes # (Auto) 0.9 L 1.0-4.0 10^3/uL Monocytes # (Auto) 0.3 0.0-1.0 10^3/uL Eosinophils # (Auto) 0.1 0.0-0.3 10^3/uL Basophils # (Auto) 0.0 0.0-0.1 10^3/uL Immature Granulocyte # (Auto) 0.0 0.0-0.1 10^3/uL Sodium Level 139 135-145 MMOL/L Potassium Level 4.3 3.6-5.0 MMOL/L Chloride Level 104 98-107 MMOL/L Carbon Dioxide Level 28 21-32 MMOL/L Anion Gap 7 5-14 MMOL/L Blood Urea Nitrogen 14 7-18 MG/DL Creatinine 0.75 0.60-1.30 MG/DL Estimat Glomerular Filtration Rate 77 BUN/Creatinine Ratio 19 Glucose Level 131 H 70-105 MG/DL Calcium Level 8.8 8.5-10.1 MG/DL Corrected Calcium 9.1 8.5-10.1 MG/DL Magnesium Level 1.9 1.6-2.4 MG/DL Total Bilirubin 0.4 0.1-1.0 MG/DL Aspartate Amino Transf (AST/SGOT) 21 5-34 U/L Alanine Aminotransferase (ALT/SGPT) 13 0-55 U/L Alkaline Phosphatase 41 40-136 U/L Total Creatine Kinase 40 29-168 U/L C-Reactive Protein High Sensitivity 0.15 0.00-0.50 MG/DL B-Type Natriuretic Peptide 174.6 H <100.0 PG/ML Total Protein 6.0 L 6.4-8.2 GM/DL Albumin 3.6 3.2-4.5 GM/DL Influenza Type A (RT-PCR) Not Detected Not Detecte Influenza Type B (RT-PCR) Not Detected Not Detecte SARS-CoV-2 RNA (RT-PCR) Detected H Not Detecte Urine Color YELLOW Urine Clarity CLEAR Urine pH 5.5 5-9 Urine Specific [place] 1.025 H 1.016-1.022 Urine Protein NEGATIVE NEGATIVE Urine Glucose (UA) NEGATIVE NEGATIVE Urine Ketones NEGATIVE NEGATIVE Urine Nitrite NEGATIVE NEGATIVE Urine Bilirubin NEGATIVE NEGATIVE Urine Urobilinogen 0.2 < = 1.0 MG/DL Urine Leukocyte Esterase TRACE H NEGATIVE Urine RBC (Auto) TRACE-I H NEGATIVE Urine RBC 0-2 /HPF Urine WBC 2-5 /HPF Urine Squamous Epithelial Cells 5-10 /HPF Urine Crystals NONE /LPF Urine Bacteria FEW H /HPF Urine Casts NONE /LPF Urine Mucus NEGATIVE /LPF Urine Culture Indicated YES My Orders Orders - AYAN DOLL MD Cbc With Automated Diff (03/08/22 09:59) Comprehensive Metabolic Panel (03/08/22 09:59) Magnesium (03/08/22 09:59) Ua Culture If Indicated (03/08/22 09:59) Ed Iv/Invasive Line Start (03/08/22 09:59) Covid 19 Inhouse Test (03/08/22 10:29) Influenza A And B By Pcr (03/08/22 10:29) Chest 1 View, Ap/Pa Only (03/08/22 10:47) Hs C Reactive Protein (03/08/22 10:47) Urine Culture (03/08/22 11:12) Lactated Ringers (Lr 1000 Ml Iv Solution (03/08/22 11:45) Bnp Elpidio (03/08/22 12:23) Creatine Kinase (03/08/22 12:23) Rx-Nirmatrelvir/Ritonavir(Eua) (Rx-Paxlo (03/08/22 21:00) Medications Given in ED Current Medications Medications Dose Ordered Sig/Kenzie Route Start Time Stop Time Status Last Admin Dose Admin Lactated Ringer's 1,000 ml @ 0 mls/hr Q0M ONCE IV 03/08/22 11:45 03/08/22 11:46 DC 03/08/22 11:53 1,000 MLS/HR Vital Signs/I&O 03/08/22 10:10 Temp 36.3 Pulse 52 Resp 13 B/P (MAP) 105/59 (74) Pulse Ox 95 O2 Delivery Room Air Capillary Refill : Blood Pressure Mean: 74 Progress Note : Progress Note Patient was thought to be hypovolemic due to her use of spironolactone and d iarrhea associated with this illness. She received a 1 L LR bolus which resuscitated her systolic blood pressure into the 120s. She felt notably better after hydration. She was found to have COVID-19. Treatment options were reviewed with her and her . She elected to receive Paxlovid which was dispensed. The nature of emergency use authorization was explained to the pat ient and she was provided a fact sheet. Because her blood pressure was soft and her heart rate low, she was advised to half her metoprolol dose while on Paxlovid. Diagnostic Imaging Diagonstic Imaging: Xray Plain Films/CT/US/NM/MRI: chest Comments NAME: [facility] REC#: [id number] PT STATUS: REG ER : 1935 PHYSICIAN: AYAN DOLL MD ADMIT DATE: 03/08/22/ER Signed Date of Exam:03/08/22 CHEST 1 VIEW, AP/PA ONLY INDICATION: Cough. COMPARISON: 04/22/2020. FINDINGS: Lungs are clear. No failure, effusion or pneumothorax. Upper limits heart size present. Previous failure pattern has all resolved. IMPRESSION: Upper limits heart size but decreased from prior. Resolution of prior edema and vascular congestion. Clear lungs at today's exam. Dictated by: Dictated on workstation # [id number] Dict: 03/08/22 1137 Trans: 03/08/22 1653 [id number] Interpreted by: QIAN HOWARD Electronically signed by: QIAN HOWARD 03/08/22 1653 Departure Impression Primary Impression: COVID-19 Additional Impressions: Hypovolemia Diarrhea Qualified Codes: R19.7 - Diarrhea, unspecified Disposition: 01 HOME, SELF-CARE Condition: Improved Departure-Patient Inst. Decision time for Depature: 13:07 Referrals: TERESA ALAMO MD (PCP/Family) Primary Care Physician Patient Instructions: COVID-19 ED, Nirmatrelvir and Ritonavir FDA Fact Sheet Add. Discharge Instructions: Please redo the FDA fact sheet for Paxlovid attached. Complete the entire course of this medication as prescribed. Drink plenty of clear liquids to stay well-hydrated. You should be hydrated well enough to urinate every few hours and your urine should be light yellow to clearish in color. The Paxlovid may increase the effect of your metoprolol blood pressure medication. For that reason, cut your metoprolol in half while you are on Paxlovid. You may take Tylenol (acetaminophen) up to 1000 mg every 6 hours as needed for pain or fever. Check your oxygen saturations a couple of times a day and if you are feeling more short of breath. If you have multiple oxygen saturations less than 92% or any oxygen saturation less than 90%, please return to the emergency room. Avoid being sedentary for prolonged periods of time. Move about the house and change positions often while lying in bed. Exercise deep breathing frequently. Try to eat a well-balanced diet and take a multivitamin daily. Call with questions or concerns, and return to the emergency room if you have worsening symptoms despite following these instructions. All discharge instructions reviewed with patient and/or family. Voiced understanding. Copy Copies To 1: TERESA ALAMO MD, JOSHUA T MD Mar 08, 2022 13:10
[2022-03-08] MEDS ORDERED: RX-NIRMATRELVIR/RITONAVIR (PAXLOVID) #30 TABS PO ONE (13:19)
[2022-03-08 13:25] VITALS: BP 135/66
[2022-03-08] MEDS ORDERED: RX-NIRMATRELVIR/RITONAVIR (PAXLOVID) #30 TABS PO SCH (21:00)
== END 2022-03-08 13:25 | disposition home or self-care (01) ==
LOC: EDUNIT# 09:55 → ER 09:57 → ICU 13:11 → UNDOADMOB 13:11 → ER 13:25
DX: U07.1 COVID-19 (principal); R19.7 Diarrhea, unspecified; E86.1 Hypovolemia
CPT/HCPCS: 36415; 71045; 80053; 81000; 82550; 83735; 83880; 85025; 86141; 87077; 87088; 87636

== ENCOUNTER 2022-03-19 10:47 | Emergency (ER) | payer MEDICARE, OTHER ==
[~2022-03-19] VITALS: Ht 170 cm; Wt 76.0 kg
[2022-03-19] MEDS ORDERED: NS IV 1000 ML 1,000 ML IV STA (11:09)
--- NOTE | 2022-03-19 11:13 | ED GU-Female ---
General Chief Complaint: General Problems/Pain Stated Complaint: UTI,WONT EAT, CHILLS Nursing Triage Note: PT'S STATES PT IS WEAK, PT WAS COVID + ABOUT 2 WEEKS AGO AND GIVEN RX FOR A UTI, BACTRIM, PT IS NOT EATING WELL AND HAS THE CHILLS. HX OF DEMENTIA Source: patient, family (ALEX SAUCEDO) History of Present Illness Date Seen by Provider: Mar 19, 2022 Time Seen by Provider: 11:11 Initial Comments This is an 87-year-old female with history of dementia that presents to the emergency room for evaluation of generalized weakness and not eating well. She states that she had COVID 2 weeks ago and seem to be getting better but then 2 days ago was diagnosed with urinary tract infection and started on Bactrim. She states that this has not helped and she has had decreased appetite since then Severity/Quality: moderate Location: unknown Radiation: none Activities at Onset: none (ALEX SAUCEDO) Allergies and Home Medications Allergies Coded Allergies: Penicillins (Verified Allergy, Unknown, 07/10/19) Uncoded Allergies: NOVACAINE (Allergy, Mild, 09/07/09) red meat (Allergy, Mild, Vomiting, 04/18/20) Patient Home Medication List Home Medication List Reviewed: Yes (ALEX SAUCEDO) Cefdinir (Cefdinir) 300 Mg Capsule, 300 MG PO BID Prescribed by: Robert Saucedo on 03/19/22 1254 Cholecalciferol (Vitamin D3) (Vitamin D3) 25 Mcg Tablet, 25 MCG PO DAILY, (Reported) Entered as Reported by: PEPE FORDE on 04/17/20943 Cholestyramine/Aspartame (Cholestyramine Light Packet) 4 Gm Powd.pack, 4 GM PO DAILY PRN for DIARRHEA Prescribed by: NEGIN GUAJARDO on 04/19/20 1042 Clonazepam (Clonazepam) 0.5 Mg Tablet, 0.5 MG PO HS PRN for RESTLESSNESS, (Reported) Entered as Reported by: PEPE FORDE on 04/17/20 09 Losartan Potassium (Losartan Potassium) 25 Mg Tablet, 25 MG PO DAILY Prescribed by: TERESA ALAMO on 04/28/20 0913 Metoprolol Tartrate (Metoprolol Tartrate) 25 Mg Tablet, 12.5 MG PO BID Prescribed by: TERESA ALAMO on 04/28/20912 Potassium Chloride (Klor-Con 10) 10 Meq Tablet.er, 10 MEQ PO BID WITH MEALS Prescribed by: TERESA ALAMO on 04/28/20912 Prednisone (Prednisone) 10 Mg Tab, 10 MG PO UD Prescribed by: TERESA ALAMO on 04/28/20912 Turmeric/Turmeric Root Extract (Turmeric 500 mg Capsule) 1 Each Capsule, 1 EACH PO DAILY, (Reported) Entered as Reported by: PEPE FORDE on 04/17/20 09 [Vitamin Pack] , 1 PACKET PO DAILY, (Reported) Entered as Reported by: ARMANDO MEZA on 07/10/19 1343 Review of Systems Review of Systems Constitutional: chills EENTM: no symptoms reported Respiratory: no symptoms reported Cardiovascular: no symptoms reported Genitourinary: dysuria Musculoskeletal: no symptoms reported Psychiatric/Neurological: Weakness (ALEX SAUCEDO) Past Lwizvhb-Ptbaww-Mugmud Hx Immunizations Up To Date Tetanus Booster (TDap): Unknown PED Vaccines UTD: No First/Initial COVID19 Vaccinat: 2020 Second COVID19 Vaccination Daniel: 2020 (ALEX SAUCEDO) Seasonal Allergies Seasonal Allergies: No (ALEX SAUCEDO) Past Medical History Surgery/Hospitalization HX: HX OF LUNG CANCER PARTIAL LUNG REMOVAL, HYSTO Surgeries: Yes Hysterectomy, Lobectomy Respiratory: No Currently Using CPAP: No Currently Using BIPAP: No Cardiac: Yes Neurological: Yes Dementia 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 Sexually Transmitted Disease: No HIV/AIDS: No Genitourinary: Yes UTI-Chronic Gastrointestinal: No Musculoskeletal: Yes Osteoporosis, Arthritis, Chronic Back Pain Endocrine: No HEENT: No Loss of Vision: Denies Hearing Impairment: Hard of Hearing Cancer: Yes Lung Did You Recieve Any Treatments: Yes What Type of Treatment Did You: Surgical Intervention Psychosocial: Yes Anxiety Integumentary: No Psoriasis Blood Disorders: No (ALEX SAUCEDO) Family Medical History Cardiovascular disease 19 MOTHER Congenital disease 19 FATHER Heart Disease, Hypertension (ALEX SAUCEDO) Physical Exam Vital Signs Vital Signs - First Documented 03/19/22 03/19/22 10:56 13:00 Temp 37.4 Pulse 73 Resp 18 B/P (MAP) 92/57 (69) Pulse Ox 95 O2 Delivery Room Air (AYAN DOLL MD) Vital Signs Capillary Refill : (ALEX SAUCEDO) Height, Weight, BMI Height: 5'6.00" Weight: 190lbs. oz. 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 Skin: normal color, warm/dry Lymphatic: no adenopathy (ALEX SAUCEDO) Progress/Results/Core Measures Suspected Sepsis SIRS Temperature: Pulse: 73 Respiratory Rate: Laboratory Tests 03/19/22 11:20: White Blood Count 12.2H Blood Pressure 92 /57 Mean: 69 Laboratory Tests 03/19/22 11:20: Creatinine 0.98, Platelet Count 162, Total Bilirubin 1.4H (ALEX SAUCEDO) Results/Orders Lab Results Laboratory Tests Test 03/19/22 11:20 Range/Units White Blood Count 12.2 H 4.3-11.0 10^3/uL Red Blood Count 4.02 3.80-5.11 10^6/uL Hemoglobin 13.2 11.5-16.0 g/dL Hematocrit 38 35-52 % Mean Corpuscular Volume 94 80-99 fL Mean Corpuscular Hemoglobin 33 25-34 pg Mean Corpuscular Hemoglobin Concent 35 32-36 g/dL Red Cell Distribution Width 13.1 10.0-14.5 % Platelet Count 162 130-400 10^3/uL Mean Platelet Volume 10.5 9.0-12.2 fL Immature Granulocyte % (Auto) 0 % Neutrophils (%) (Auto) 96 H 42-75 % Lymphocytes (%) (Auto) 1 L 12-44 % Monocytes (%) (Auto) 2 0-12 % Eosinophils (%) (Auto) 0 0-10 % Basophils (%) (Auto) 0 0-10 % Neutrophils # (Auto) 11.7 H 1.8-7.8 10^3/uL Lymphocytes # (Auto) 0.1 L 1.0-4.0 10^3/uL Monocytes # (Auto) 0.3 0.0-1.0 10^3/uL Eosinophils # (Auto) 0.0 0.0-0.3 10^3/uL Basophils # (Auto) 0.0 0.0-0.1 10^3/uL Immature Granulocyte # (Auto) 0.1 0.0-0.1 10^3/uL Neutrophils % (Manual) 97 % Lymphocytes % (Manual) 2 % Monocytes % (Manual) 1 % Blood Morphology Comment NORMAL Urine Color YELLOW Urine Clarity SL CLOUDY Urine pH 5.5 5-9 Urine Specific [place] 1.025 H 1.016-1.022 Urine Protein NEGATIVE NEGATIVE Urine Glucose (UA) NEGATIVE NEGATIVE Urine Ketones NEGATIVE NEGATIVE Urine Nitrite NEGATIVE NEGATIVE Urine Bilirubin 1+ H NEGATIVE Urine Urobilinogen 1.0 < = 1.0 MG/DL Urine Leukocyte Esterase TRACE H NEGATIVE Urine RBC (Auto) 2+ H NEGATIVE Urine RBC NONE /HPF Urine WBC 10-25 H /HPF Urine Squamous Epithelial Cells >50 H /HPF Urine Crystals NONE /LPF Urine Bacteria FEW H /HPF Urine Casts NONE /LPF Urine Mucus NEGATIVE /LPF Urine Culture Indicated YES Sodium Level 130 L 135-145 MMOL/L Potassium Level 4.6 3.6-5.0 MMOL/L Chloride Level 100 98-107 MMOL/L Carbon Dioxide Level 18 L 21-32 MMOL/L Anion Gap 12 5-14 MMOL/L Blood Urea Nitrogen 32 H 7-18 MG/DL Creatinine 0.98 0.60-1.30 MG/DL Estimat Glomerular Filtration Rate 56 BUN/Creatinine Ratio 33 Glucose Level 143 H 70-105 MG/DL Calcium Level 8.7 8.5-10.1 MG/DL Corrected Calcium 9.0 8.5-10.1 MG/DL Total Bilirubin 1.4 H 0.1-1.0 MG/DL Aspartate Amino Transf (AST/SGOT) 88 H 5-34 U/L Alanine Aminotransferase (ALT/SGPT) 156 H 0-55 U/L Alkaline Phosphatase 64 40-136 U/L Total Protein 5.9 L 6.4-8.2 GM/DL Albumin 3.6 3.2-4.5 GM/DL (AYAN DOLL MD) Medications Given in ED Current Medications Medications Dose Ordered Sig/Kenzie Route Start Time Stop Time Status Last Admin Dose Admin Ceftriaxone Sodium/Dextrose 50 ml @ 100 mls/hr ONCE ONCE IV 03/19/22 12:15 03/19/22 12:44 DC 03/19/22 12:31 100 MLS/HR (AYAN DOLL MD) Vital Signs/I&O 03/19/22 03/19/22 10:56 13:00 Temp 37.4 37.3 Pulse 73 73 Resp 18 B/P (MAP) 92/57 (69) 100/61 Pulse Ox 95 96 O2 Delivery Room Air Room Air (AYAN DOLL MD) Vital Signs/I&O Capillary Refill : (ALEX SAUCEDO) Blood Pressure Mean: 69 Departure Communication (Admissions) Patient is afebrile, non-toxic and in no distress. She feels markedly better after IV hydration. We gave 1g Rocephin for persistent UTI, culture sent. Patie nt and will return if worse. (ALEX SAUCEDO) Impression Primary Impression: Hypovolemia Additional Impression: Urinary tract infection Disposition: 01 HOME, SELF-CARE Condition: Stable Departure-Patient Inst. Decision time for Depature: 12:53 (ALEX SAUCEDO) Referrals: TERESA ALAMO MD (PCP/Family) Primary Care Physician Patient Instructions: Urinary Tract Infection, Adult (DC) Scripts Cefdinir (Cefdinir) 300 Mg Capsule 300 MG PO BID for 10 Days, #20 CAP Prov: ALEX SAUCEDO 03/19/22 ATTENDING PHYSICIAN NOTE: I was physically present as attending physician in the emergency department during the care of this patient, but I was not directly involved in the decision making or delivery of care for this patient. (AYAN DOLL MD) ALEX SAUCEDO Mar 19, 2022 11:13 AYAN DOLL MD Mar 19, 2022 20:56
[2022-03-19 11:30] LABS: BASOPHILS % (AUTO) 0 % (0-10); EOSINOPHILS % (AUTO) 0 % (0-10); HEMATOCRIT 38 % (35-52); HEMOGLOBIN 13.2 g/dL (11.5-16.0); LYMPHOCYTES # (AUTO) 0.1 10^3/uL (1.0-4.0); LYMPHOCYTES % (AUTO) 1 % (12-44); MEAN CORPUSCULAR HEMOGLOBIN 33 pg (25-34); MEAN CORPUSCULAR HGB CONC 35 g/dL (32-36); MEAN CORPUSCULAR VOLUME 94 fL (80-99); MEAN PLATELET VOLUME 10.5 fL (9.0-12.2); MONOCYTES # (AUTO) 0.3 10^3/uL (0.0-1.0); MONOCYTES % (AUTO) 2 % (0-12); NEUTROPHILS # (AUTO) 11.7 10^3/uL (1.8-7.8); NEUTROPHILS % (AUTO) 96 % (42-75); PLATELET COUNT 162 10^3/uL (130-400); WHITE BLOOD COUNT 12.2 10^3/uL (4.3-11.0)
[2022-03-19 11:31] LABS: CLARITY,URINE SL CLOUDY; COLOR,URINE YELLOW; GLUCOSE, URINE (UA) NEGATIVE (NEGATIVE); KETONES,URINE NEGATIVE (NEGATIVE); LEUKOCYTE ESTERASE ,URINE TRACE (NEGATIVE); NITRITE,URINE NEGATIVE (NEGATIVE); PH,URINE 5.5 (5-9); PROTEIN,URINE NEGATIVE (NEGATIVE)
[2022-03-19 11:37] LABS: BACTERIA,URINE FEW /HPF; BILIRUBIN,URINE 1+ (NEGATIVE); SQUAMOUS EPITHELIAL CELL,UR >50 /HPF
[2022-03-19 11:42] LABS: ALBUMIN 3.6 GM/DL (3.2-4.5); POTASSIUM 4.6 MMOL/L (3.6-5.0)
[2022-03-19 11:43] LABS: CALCIUM 8.7 MG/DL (8.5-10.1)
[2022-03-19 11:44] LABS: TOTAL PROTEIN 5.9 GM/DL (6.4-8.2)
[2022-03-19 11:46] LABS: BILIRUBIN,TOTAL 1.4 MG/DL (0.1-1.0)
[2022-03-19 11:48] LABS: CREATININE SERUM 0.98 MG/DL (0.60-1.30)
[2022-03-19 12:00] LABS: LYMPHOCYTES % (MANUAL) 2 %; MONOCYTES % (MANUAL) 1 %; NEUTROPHILS % (MANUAL) 97 %; RBC MORPH NORMAL
[2022-03-19] MEDS ORDERED: cefTRIAXone 1 GM PRE-MIX 50 ML IV ONE (12:15)
[2022-03-19] MEDS ORDERED: CEFD300C3 PO (12:54)
[2022-03-19 13:00] VITALS: BP 100/61
== END 2022-03-19 13:00 | disposition home or self-care (01) ==
LOC: EDUNIT# 10:47 → ER 10:48
DX: N39.0 Urinary tract infection, site not specified (principal); E86.1 Hypovolemia; F03.90 Unspecified dementia, unspecified severity, without behavioral disturbance, psychotic disturbance, mood disturbance, and anxiety; Z86.16 Personal history of COVID-19
CPT/HCPCS: 36415; 80053; 81000; 85007; 85027; 87088

== ENCOUNTER 2022-03-30 10:56 | Observation (INO) | payer MEDICARE, OTHER ==
[~2022-03-30] VITALS: Ht 167.7 cm; Wt 76.1 kg
[2022-03-30] MEDS ORDERED: NS IV 1000 ML 1,000 ML IV STA ×2 (11:11→14:20)
[2022-03-30] MEDS ORDERED: ONDANSETRON 4 MG/2 ML (SDV) Z0FRAN IVP ONE (11:15)
--- NOTE | 2022-03-30 11:16 | ED General ---
General Chief Complaint: General Problems/Pain Stated Complaint: CHILLS,N/V- POST COVID X3 WEEKS Source of Information: Patient Exam Limitations: No Limitations History of Present Illness Date Seen by Provider: Mar 30, 2022 Time Seen by Provider: 11:14 Initial Comments Patient is a 87-year-old female who presents the ED with generalized weakness, chills, dizziness with dry heaving. Symptoms started this morning when she woke up. She felt like she was cold. Attempted to warm up with blankets. Denies of any known fever. She dry heaves for 5 times according to significant other at bedside. Patient was diagnosed with UTI few weeks ago was placed on cefdinir. She denies of any urinary symptoms. She has some mild chest tightness without cough, shortness of breath, abdominal pain, diarrhea, headache, sore throat, ear pain or any unilateral muscle weakness or sensory changes. Patient states she had COVID last month. Allergies and Home Medications Allergies Coded Allergies: Penicillins (Verified Allergy, Unknown, 07/10/19) Uncoded Allergies: NOVACAINE (Allergy, Mild, 09/07/09) red meat (Allergy, Mild, Vomiting, 04/18/20) Patient Home Medication List Home Medication List Reviewed: Yes Cefdinir (Cefdinir) 300 Mg Capsule, 300 MG PO BID Prescribed by: Robert Saucedo on 03/19/22 1254 Last Action: Held Cholecalciferol (Vitamin D3) (Vitamin D3) 25 Mcg Tablet, 25 MCG PO DAILY, (Reported) Entered as Reported by: PEPE FORDE on 04/17/20943 Last Action: Held Cholestyramine/Aspartame (Cholestyramine Light Packet) 4 Gm Powd.pack, 4 GM PO DAILY PRN for DIARRHEA Prescribed by: NEGIN GUAJARDO on 04/19/20 1042 Last Action: Held Clonazepam (Clonazepam) 0.5 Mg Tablet, 0.5 MG PO HS PRN for RESTLESSNESS, (Reported) Entered as Reported by: PEPE FORDE on 04/17/20943 Last Action: Held Losartan Potassium (Losartan Potassium) 25 Mg Tablet, 25 MG PO DAILY Prescribed by: TERESA LACY on 04/28/20 0913 Last Action: Held Metoprolol Tartrate (Metoprolol Tartrate) 25 Mg Tablet, 12.5 MG PO BID Prescribed by: TERESA LACY on 04/28/20912 Last Action: Held Potassium Chloride (Klor-Con 10) 10 Meq Tablet.er, 10 MEQ PO BID WITH MEALS Prescribed by: TERESA LACY on 04/28/20912 Last Action: Held Prednisone (Prednisone) 10 Mg Tab, 10 MG PO UD Prescribed by: TERESA LACY on 04/28/20912 Last Action: Held Turmeric/Turmeric Root Extract (Turmeric 500 mg Capsule) 1 Each Capsule, 1 EACH PO DAILY, (Reported) Entered as Reported by: PEPE FORDE on 04/17/20943 Last Action: Held [Vitamin Pack] , 1 PACKET PO DAILY, (Reported) Entered as Reported by: ARMANDO MEZA on 07/10/191342 Last Action: Held Review of Systems Review of Systems Constitutional: chills; No diaphoresis; malaise, weakness EENTM: No ear pain, No blurred vision, No double vision Respiratory: No cough, No dyspnea on exertion Cardiovascular: chest pain; No edema Gastrointestinal: No diarrhea; nausea, vomiting Genitourinary: No decreased output, No discharge Musculoskeletal: No back pain, No joint pain Skin: No change in color, No change in hair/nails All Other Systems Reviewed Negative Unless Noted: Yes Past Hvmxypu-Mtjpxk-Otliij Hx Patient Social History Tobacco Use?: No Substance use?: No Alcohol Use?: No Pt feels they are or have been: Unable to obtain Immunizations Up To Date Tetanus Booster (TDap): Unknown PED Vaccines UTD: No Influenza Vaccine Up-to-Date: Yes; Up-to-Date First/Initial COVID19 Vaccinat: 2020 Second COVID19 Vaccination Daniel: 2020 Third COVID19 Vaccination Date: YES Seasonal Allergies Seasonal Allergies: No Past Medical History Surgery/Hospitalization HX: HX OF LUNG CANCER PARTIAL LUNG REMOVAL, HYSTO, DEMENTIA Surgeries: Yes Hysterectomy, Lobectomy Respiratory: No Currently Using CPAP: No Currently Using BIPAP: No Cardiac: Yes Neurological: Yes Dementia Reproductive Disorders: No [employer] History: Menopausal Sexually Transmitted Disease: No HIV/AIDS: No Genitourinary: Yes UTI-Chronic Gastrointestinal: No Musculoskeletal: Yes Osteoporosis, Arthritis, Chronic Back Pain Endocrine: No HEENT: No Loss of Vision: Denies Hearing Impairment: Hard of Hearing Cancer: Yes Lung Did You Recieve Any Treatments: Yes What Type of Treatment Did You: Surgical Intervention Psychosocial: Yes Anxiety Integumentary: No Psoriasis Blood Disorders: No Family Medical History Cardiovascular disease 19 MOTHER Congenital disease 19 FATHER Heart Disease, Hypertension Physical Exam Vital Signs Vital Signs - First Documented 03/30/22 11:05 Temp 37.1 Pulse 74 Resp 14 B/P (MAP) 83/53 (63) Pulse Ox 94 O2 Delivery Room Air Capillary Refill : Height, Weight, BMI Height: 5'6.00" Weight: 190lbs. oz. 86.810542nz; 26.00 BMI Method:Stated General Appearance: No Apparent Distress, WD/WN Eyes: Bilateral Eye Normal Inspection, Bilateral Eye PERRL, Bilateral Eye EOMI HEENT: PERRL/EOMI, TMs Normal, Normal ENT Inspection, Pharynx Normal Neck: Full Range of Motion, Normal Inspection, Non Tender, Supple Respiratory: Chest Non Tender, Lungs Clear, Normal Breath Sounds, No Accessory Muscle Use, No Respiratory Distress Cardiovascular: Regular Rate, Rhythm, No Edema, No Gallop Gastrointestinal: Normal Bowel Sounds, No Organomegaly, No Pulsatile Mass, Non Tender Back: Normal Inspection, No CVA Tenderness, No Vertebral Tenderness Extremity: Normal Capillary Refill, Normal Inspection, Normal Range of Motion, Non Tender Neurologic/Psychiatric: Alert, Oriented x3, No Motor/Sensory Deficits, Normal Mood/Affect, fbi field agent II-XII Norm as Tested Focused Exam Lactate Level 03/30/22 12:28: Lactic Acid Level 1.40 Lactic Acid Level Laboratory Tests Test 03/30/22 12:28 Lactic Acid Level 1.40 MMOL/L (0.50-2.00) Progress/Results/Core Measures Suspected Sepsis SIRS Temperature: Pulse: Respiratory Rate: Laboratory Tests 03/30/22 11:20: White Blood Count 15.9H Blood Pressure / Mean: 03/30/22 12:28: Lactic Acid Level 1.40 Laboratory Tests 03/30/22 11:20: Creatinine 0.99, INR Comment 1.1, Platelet Count 312, Total Bilirubin 1.1H Results/Orders Lab Results Laboratory Tests Test 03/30/22 11:20 03/30/22 12:28 03/30/22 13:17 Range/Units White Blood Count 15.9 H 4.3-11.0 10^3/uL Red Blood Count 4.36 3.80-5.11 10^6/uL Hemoglobin 14.2 11.5-16.0 g/dL Hematocrit 42 35-52 % Mean Corpuscular Volume 96 80-99 fL Mean Corpuscular Hemoglobin 33 25-34 pg Mean Corpuscular Hemoglobin Concent 34 32-36 g/dL Red Cell Distribution Width 13.1 10.0-14.5 % Platelet Count 312 130-400 10^3/uL Mean Platelet Volume 9.6 9.0-12.2 fL Immature Granulocyte % (Auto) 1 % Neutrophils (%) (Auto) 98 H 42-75 % Lymphocytes (%) (Auto) 1 L 12-44 % Monocytes (%) (Auto) 0 0-12 % Eosinophils (%) (Auto) 0 0-10 % Basophils (%) (Auto) 0 0-10 % Neutrophils # (Auto) 15.5 H 1.8-7.8 10^3/uL Lymphocytes # (Auto) 0.1 L 1.0-4.0 10^3/uL Monocytes # (Auto) 0.1 0.0-1.0 10^3/uL Eosinophils # (Auto) 0.0 0.0-0.3 10^3/uL Basophils # (Auto) 0.0 0.0-0.1 10^3/uL Immature Granulocyte # (Auto) 0.2 H 0.0-0.1 10^3/uL Neutrophils % (Manual) 89 % Lymphocytes % (Manual) 1 % Monocytes % (Manual) 2 % Eosinophils % (Manual) 0 % Basophils % (Manual) 0 % Band Neutrophils 8 % Blood Morphology Comment NORMAL Prothrombin Time 14.1 12.2-14.7 SEC INR Comment 1.1 0.8-1.4 Activated Partial Thromboplast Time 28 24-35 SEC Sodium Level 141 135-145 MMOL/L Potassium Level 4.7 3.6-5.0 MMOL/L Chloride Level 103 98-107 MMOL/L Carbon Dioxide Level 23 21-32 MMOL/L Anion Gap 15 H 5-14 MMOL/L Blood Urea Nitrogen 18 7-18 MG/DL Creatinine 0.99 0.60-1.30 MG/DL Estimat Glomerular Filtration Rate 56 BUN/Creatinine Ratio 18 Glucose Level 89 70-105 MG/DL Calcium Level 9.8 8.5-10.1 MG/DL Corrected Calcium 10.1 8.5-10.1 MG/DL Magnesium Level 1.7 1.6-2.4 MG/DL Total Bilirubin 1.1 H 0.1-1.0 MG/DL Aspartate Amino Transf (AST/SGOT) 31 5-34 U/L Alanine Aminotransferase (ALT/SGPT) 21 0-55 U/L Alkaline Phosphatase 118 40-136 U/L Troponin I < 0.028 <0.028 NG/ML C-Reactive Protein High Sensitivity 0.84 H 0.00-0.50 MG/DL Total Protein 6.5 6.4-8.2 GM/DL Albumin 3.6 3.2-4.5 GM/DL Lactic Acid Level 1.40 0.50-2.00 MMOL/L Urine Color YELLOW Urine Clarity CLEAR Urine pH 6.0 5-9 Urine Specific [place] 1.025 H 1.016-1.022 Urine Protein TRACE H NEGATIVE Urine Glucose (UA) NEGATIVE NEGATIVE Urine Ketones NEGATIVE NEGATIVE Urine Nitrite NEGATIVE NEGATIVE Urine Bilirubin NEGATIVE NEGATIVE Urine Urobilinogen 0.2 < = 1.0 MG/DL Urine Leukocyte Esterase NEGATIVE NEGATIVE Urine RBC (Auto) NEGATIVE NEGATIVE Urine RBC RARE /HPF Urine WBC 0-2 /HPF Urine Squamous Epithelial Cells 0-2 /HPF Urine Crystals NONE /LPF Urine Bacteria TRACE /HPF Urine Casts NONE /LPF Urine Mucus NEGATIVE /LPF Urine Culture Indicated NO My Orders Orders - ABILIO MAIER Ns Iv 1000 Ml (Sodium Chloride 0.9%) (03/30/22 11:11) Ondansetron Injection (Zofran Injectio (03/30/22 11:15) Urinalysis (03/30/22 11:11) Cbc With Automated Diff (03/30/22 11:11) Comprehensive Metabolic Panel (03/30/22 11:11) Troponin I Elpidio (03/30/22 11:11) Ekg Tracing (03/30/22 11:11) Chest 1 View, Ap/Pa Only (03/30/22 11:11) Magnesium (03/30/22 11:11) Partial Thromboplastin Time (03/30/22 11:11) Protime With Inr (03/30/22 11:11) Hs C Reactive Protein (03/30/22 11:11) Manual Differential (03/30/22 11:20) Blood Culture (03/30/22 12:21) Lactic Acid Analyzer (03/30/22 12:21) Ceftriaxone 1 Gm Pre-Mix (Rocephin 1 Gm (03/30/22 12:21) Blood Culture (03/30/22 UNK) Medications Given in ED Vital Signs/I&O 03/30/22 11:05 Temp 37.1 Pulse 74 Resp 14 B/P (MAP) 83/53 (63) Pulse Ox 94 O2 Delivery Room Air 03/31/22 00:00 Intake Total 1000 ml Balance 1000 ml Capillary Refill : ECG Comment Sinus rhythm, 74 bpm, QRS duration 83 MS, QTc 397 MS. Departure Communication (Admissions) Time/Spoke to Admitting Phy: 13:[address] Lacy Communication (PCP) Patient presents ED with chills dizziness generalized weakness. This is patient's third visit in the past month. 3 weeks ago diagnosed with COVID. Has some mild residual cough. Dry heaving today without vomiting according to . Was not able to produce urine sample here. Has not been drinking at home according to specially water. Currently on spironolactone, losartan and metoprolol. Blood pressure stayed in the mid to upper 80s. Did increase to mid 90s after liter of fluid. Did drop down back into the mid 80s but did remain a map over 65 for most of her visit. According to her blood pressure has been running low as low as 55 systolic. Unclear if this is result of hypovolemia or medications or other etiologies. She is did have a slight elevated white blood count from her last visit 2 weeks ago diagnosed with UTI treated with cefdinir. Robins catheter was placed here secondary to limit urine output suggesting more hypovolemia type presentation. Urinalysis negative for infection. Chest x-ray did show concern for infiltrate versus atelectasis in right lung base. Potentially developing pneumonia however she has no current feeling of short of breath or worsening cough. Oxygen above 93% on room air. EKG sinus rhythm. Lab work was otherwise unremarkable. Normal troponin. Due t o her current symptoms and hypotension patient would likely benefit with observation. Discussed patient with Dr. LACY who agrees with observation. Patient will be started on a second liter fluid 125 ml per hour. She denies history of CHF. Not able to compare to recent echocardiogram. Patient without any focal neural deficits. Patient agrees with admission. We will continue monitoring blood pressure. Patient did have blood pressure in the 90s at her last visit. She states her blood pressure has been running lower over the past few months. Impression Primary Impression: Hypotension Additional Impression: Weakness Disposition: ADMITTED INPATIENT Condition: Stable Admissions Decision to Admit Reason: Admit from ER (General) Decision to Admit/Date: Mar 30, 2022 Time/Decision to Admit Time: 13:45 Departure-Patient Inst. Referrals: TERESA LACY MD (PCP/Family) Primary Care Physician ABILIO MAIER Mar 30, 2022 11:16
[2022-03-30 11:35] LABS: BASOPHILS % (AUTO) 0 % (0-10); EOSINOPHILS % (AUTO) 0 % (0-10); HEMATOCRIT 42 % (35-52); HEMOGLOBIN 14.2 g/dL (11.5-16.0); LYMPHOCYTES # (AUTO) 0.1 10^3/uL (1.0-4.0); LYMPHOCYTES % (AUTO) 1 % (12-44); MEAN CORPUSCULAR HEMOGLOBIN 33 pg (25-34); MEAN CORPUSCULAR HGB CONC 34 g/dL (32-36); MEAN CORPUSCULAR VOLUME 96 fL (80-99); MEAN PLATELET VOLUME 9.6 fL (9.0-12.2); MONOCYTES # (AUTO) 0.1 10^3/uL (0.0-1.0); MONOCYTES % (AUTO) 0 % (0-12); NEUTROPHILS # (AUTO) 15.5 10^3/uL (1.8-7.8); NEUTROPHILS % (AUTO) 98 % (42-75); PLATELET COUNT 312 10^3/uL (130-400); WHITE BLOOD COUNT 15.9 10^3/uL (4.3-11.0)
--- NOTE | 2022-03-30 11:39 | Diagnostic Imaging Report ---
INDICATION: Chest tightness. TIME OF EXAM: 11:37 AM. COMPARISON: Correlation is made with the prior chest of 03/08/2022. FINDINGS: The heart size is stable. There are surgical clips in the region of the left hilum. There is some developing infiltrate or atelectasis in the right base. No effusion or pneumothorax is seen. IMPRESSION: Development of some mild infiltrate or atelectasis in the right base. Dictated by: Dictated on workstation # [id number]
[2022-03-30 11:46] LABS: ALBUMIN 3.6 GM/DL (3.2-4.5); CHLORIDE 103 MMOL/L (98-107); POTASSIUM 4.7 MMOL/L (3.6-5.0); SODIUM 141 MMOL/L (135-145)
[2022-03-30 11:48] LABS: CALCIUM 9.8 MG/DL (8.5-10.1)
[2022-03-30 11:49] LABS: GLUCOSE 89 MG/DL (70-105); INR 1.1 (0.8-1.4); PROTHROMBIN TIME PATIENT 14.1 SEC (12.2-14.7); TOTAL PROTEIN 6.5 GM/DL (6.4-8.2)
[2022-03-30 11:50] LABS: CARBON DIOXIDE 23 MMOL/L (21-32)
[2022-03-30 11:51] LABS: BILIRUBIN,TOTAL 1.1 MG/DL (0.1-1.0)
[2022-03-30 11:52] LABS: ALKALINE PHOSPHATASE 118 U/L (40-136)
[2022-03-30 11:53] LABS: CREATININE SERUM 0.99 MG/DL (0.60-1.30); GFR ESTIMATED 56
[2022-03-30 11:54] LABS: BUN/CREATININE RATIO 18
[2022-03-30 11:55] LABS: ALANINE AMINOTRANSFERASE 21 U/L (0-55)
[2022-03-30 11:56] LABS: MAGNESIUM 1.7 MG/DL (1.6-2.4)
[2022-03-30 12:05] LABS: BAND NEUTROPHILS 8 %; BASOPHILS % (MANUAL) 0 %; EOSINOPHILS % (MANUAL) 0 %; LYMPHOCYTES % (MANUAL) 1 %; MONOCYTES % (MANUAL) 2 %; NEUTROPHILS % (MANUAL) 89 %; RBC MORPH NORMAL
[2022-03-30] MEDS ORDERED: cefTRIAXone 1 GM PRE-MIX 50 ML IV STA (12:21)
[2022-03-30 13:24] LABS: BILIRUBIN,URINE NEGATIVE (NEGATIVE); CLARITY,URINE CLEAR; COLOR,URINE YELLOW; GLUCOSE, URINE (UA) NEGATIVE (NEGATIVE); KETONES,URINE NEGATIVE (NEGATIVE); LEUKOCYTE ESTERASE ,URINE NEGATIVE (NEGATIVE); NITRITE,URINE NEGATIVE (NEGATIVE); PROTEIN,URINE TRACE (NEGATIVE)
[2022-03-30 13:34] LABS: BACTERIA,URINE TRACE /HPF; RBC,URINE RARE /HPF; SQUAMOUS EPITHELIAL CELL,UR 0-2 /HPF; WBC,URINE 0-2 /HPF
[2022-03-30 15:30] VITALS: BP 135/61
[2022-03-30] MEDS ORDERED: ONDANSETRON 4 MG (ZOFRAN) ORAL DISSOLVE TAB PO PRN (15:45)
[2022-03-30] MEDS: NS IV 1000 ML 1,000 ML IV ONE ×2 (15:58→17:49)
--- NOTE | 2022-03-30 18:32 | History & Physical ---
History of Present Illness History of Present Illness Reason for visit/HPI Pt is an 87 y/o female who is known to me from clinic. Alyson had covid about 2 months ago and she notes that she has been intermittently fatigued and had urinary tract infection recently which was treated and pt was better for a short time before succumbing to illness again. She has not had much of a cough or congestion, just feeling progressively weak/fatigued. Date of Admission Mar 30, 2022 at 13:50 Date Seen by a Provider: Mar 30, 2022 Time Seen by a Provider: 18:00 Attending Physician Teresa Lacy MD Admitting Physician Admitting Physician: Teresa Lacy MD Attending Physician: Teresa Lacy MD Consult Allergies and Home Medications Allergies Coded Allergies: Penicillins (Verified Allergy, Unknown, 07/10/19) Uncoded Allergies: NOVACAINE (Allergy, Mild, 09/07/09) red meat (Allergy, Mild, Vomiting, 04/18/20) Patient Home Medication List Home Medication List Reviewed: Yes Cefdinir (Cefdinir) 300 Mg Capsule, 300 MG PO BID Prescribed by: Robert Saucedo on 03/19/22 1254 Last Action: Held Cholecalciferol (Vitamin D3) (Vitamin D3) 25 Mcg Tablet, 25 MCG PO DAILY, (Rep orted) Entered as Reported by: PEPE FORDE on 04/17/20943 Last Action: Held Cholestyramine/Aspartame (Cholestyramine Light Packet) 4 Gm Powd.pack, 4 GM PO DAILY PRN for DIARRHEA Prescribed by: NEGIN GUAJARDO on 04/19/20 1042 Last Action: Held Clonazepam (Clonazepam) 0.5 Mg Tablet, 0.5 MG PO HS PRN for RESTLESSNESS, (Reported) Entered as Reported by: PEPE FORDE on 04/17/20943 Last Action: Held Losartan Potassium (Losartan Potassium) 25 Mg Tablet, 25 MG PO DAILY Prescribed by: TERESA LACY on 04/28/20912 Last Action: Held Metoprolol Tartrate (Metoprolol Tartrate) 25 Mg Tablet, 12.5 MG PO BID Prescribed by: TERESA LACY on 04/28/20912 Last Action: Held Potassium Chloride (Klor-Con 10) 10 Meq Tablet.er, 10 MEQ PO BID WITH MEALS Prescribed by: TERESA LACY on 04/28/20912 Last Action: Held Prednisone (Prednisone) 10 Mg Tab, 10 MG PO UD Prescribed by: TERESA LACY on 04/28/20912 Last Action: Held Turmeric/Turmeric Root Extract (Turmeric 500 mg Capsule) 1 Each Capsule, 1 EACH PO DAILY, (Reported) Entered as Reported by: PEPE FORDE on 04/17/20943 Last Action: Held [Vitamin Pack] , 1 PACKET PO DAILY, (Reported) Entered as Reported by: ARMANDO MEZA on 07/10/19 1343 Last Action: Held Past Qsedkbg-Mmugjr-Hikkwn Hx Patient Social History Marrital Status: Living Status: lives with at their home Employed/Student: retired Tobacco Use?: No Smoking Status: Never a Smoker Substance use?: No Alcohol Use?: No Pt feels they are or have been: No Immunizations Up To Date Date of Influenza Vaccine: Aug 11, 2012 First/Initial COVID19 Vaccinat: 2020 Second COVID19 Vaccination Daniel: 2020 Tetanus Booster (TDap): Unknown Hepatitis A: No Hepatitis B: No PED Vaccines UTD: No Date of Pneumonia Vaccine: Jul 12, 2011 Seasonal Allergies Seasonal Allergies: No Current Status Advance Directives: Yes Advance Directive Location: Home Communicates: Verbally Primary Language: Filipino Preferred Spoken Language: Filipino Is interpretation needed?: No Sensory deficits: Vision impairment, Hearing impairment Implanted or Applied Medical D: None Past Medical History Surgeries: Hysterectomy, Lobectomy Currently Using CPAP: No Currently Using BIPAP: No Dementia 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 Sexually Transmitted Disease: No HIV/AIDS: No UTI-Chronic Osteoporosis, Arthritis, Chronic Back Pain Loss of Vision: Denies Hearing Impairment: Hard of Hearing Lung Did You Recieve Any Treatments: Yes What Type of Treatment Did You: Surgical Intervention Anxiety Psoriasis Blood Disorders: No Family Medical History Reviewed Nursing Family Hx Cardiovascular disease 19 MOTHER Congenital disease 19 FATHER Heart Disease, Hypertension Review of Systems Constitutional: malaise, weakness EENTM: throat pain; No hoarseness, No nose congestion, No nose pain, No throat swelling Respiratory: No cough, No dyspnea on exertion; short of breath Cardiovascular: No chest pain, No edema, No palpitations Gastrointestinal: No abdominal pain, No constipation, No diarrhea, No loss of appetite; nausea Genitourinary: frequency Musculoskeletal: back pain, joint pain, muscle weakness Skin: no symptoms reported Psychiatric/Neurological: Weakness All Other Systems Reviewed Negative Unless Noted: Yes Physical Exam Vital Signs Vital Signs - First Documented 03/30/22 11:05 Temp 37.1 Pulse 74 Resp 14 B/P (MAP) 83/53 (63) Pulse Ox 94 O2 Delivery Room Air Capillary Refill : Less Than 3 Seconds Height, Weight, BMI Height: 5'6.00" Weight: 190lbs. oz. 86.238210vz; 27.05 BMI Method:Stated General Appearance: No Apparent Distress, WD/WN HEENT: PERRL/EOMI Neck: Full Range of Motion, Non Tender, Supple Respiratory: Chest Non Tender, Lungs Clear, Normal Breath Sounds, No Accessory Muscle Use, No Respiratory Distress Cardiovascular: Regular Rate, Rhythm, Normal Peripheral Pulses Gastrointestinal: Normal Bowel Sounds, No Organomegaly, No Pulsatile Mass, Non Tender, Soft Rectal: Deferred Back: Normal Inspection, No CVA Tenderness, No Vertebral Tenderness Extremity: Normal Capillary Refill, Normal Range of Motion, Non Tender, No Calf Tenderness, No Pedal Edema Neurologic/Psychiatric: Alert, Oriented x3, No Motor/Sensory Deficits, Normal Mood/Affect Skin: Normal Color, Warm/Dry Lymphatic: No Adenopathy Assessment/Plan Assessment and Plan Dyspnea Hypotension Fatigue Leukocytosis Weakness Nausea Recent Covid Infection Recurrent Urinary tract infections Dementia Dyspnea - improved - no change in management at this time - check cxr in morning Hypotension with Fatigue - hold home meds at this time. Leukocytosis - check cbc in morning Weakness - will start therapy in morning Nausea - resolved on admission Recent Covid Infection - fatigue and weakness - discussed with pt and family about the fact that this is going to be a prolonged process of recovery. Recurrent Urinary tract infections - monitor urine Dementia - monitor closely for delirium in hospital dvt prophylaxis with scd's and lovenox gi prophylaxis with ppi Admission Diagnosis Dyspnea Hypotension Fatigue Leukocytosis Weakness Nausea Recent Covid Infection Recurrent Urinary tract infections Dementia Admission Status: Observation TERESA LACY MD Mar 30, 2022 18:32
[2022-03-30] MEDS: NS IV 1000 ML 1,000 ML IV SCH (19:26)
[2022-03-30 19:40] VITALS: BP 101/66
[2022-03-30] MEDS: ENOXAPARIN 40 MG/0.4 ML (LOVENOX) SYR SC SCH (23:20)
[2022-03-31] VITALS (8 sets, daily range): BP systolic 88–124; BP diastolic 48–71
[2022-03-31] MEDS: NS IV 1000 ML 1,000 ML IV SCH ×4 (03:44→20:51)
[2022-03-31 06:38] LABS: BASOPHILS % (AUTO) 0 % (0-10); EOSINOPHILS % (AUTO) 0 % (0-10); HEMATOCRIT 33 % (35-52); HEMOGLOBIN 10.9 g/dL (11.5-16.0); LYMPHOCYTES # (AUTO) 0.5 10^3/uL (1.0-4.0); LYMPHOCYTES % (AUTO) 4 % (12-44); MEAN CORPUSCULAR HEMOGLOBIN 32 pg (25-34); MEAN CORPUSCULAR HGB CONC 34 g/dL (32-36); MEAN CORPUSCULAR VOLUME 96 fL (80-99); MONOCYTES # (AUTO) 0.9 10^3/uL (0.0-1.0); MONOCYTES % (AUTO) 7 % (0-12); NEUTROPHILS # (AUTO) 11.3 10^3/uL (1.8-7.8); NEUTROPHILS % (AUTO) 88 % (42-75); PLATELET COUNT 235 10^3/uL (130-400); WHITE BLOOD COUNT 12.8 10^3/uL (4.3-11.0)
[2022-03-31 06:50] LABS: CALCIUM 8.1 MG/DL (8.5-10.1)
[2022-03-31 06:55] LABS: CREATININE SERUM 0.75 MG/DL (0.60-1.30)
--- NOTE | 2022-03-31 07:51 | Progress Note ---
Subjective Subjective Date Seen by Provider: Mar 31, 2022 Time Seen by Provider: 07:21 Alyson Wong is an 87y/o F who is being seen for follow up due to hypotension. Pt reports that she feels good this morning. Said she had a BM today. Denies having any dizziness or SOB. Appetite is decreased according to her . He also reported that pt is still weak. Review of Systems General: No Chills, No Other (fever) HEENT: No Head Aches, No Eye Pain Pulmonary: No Dyspnea, No Cough Cardiovascular: No: Chest Pain, Palpitations Gastrointestinal: No: Nausea, Vomiting, Abdominal Pain Genitourinary: No Dysuria, No Incontinence Musculoskeletal: No: shoulder pain, back pain Neurological: No: Weakness, Numbness All Other Systems Reviewed All Other Systems Reviewed: Yes Objective Exam Vital Signs Vital Signs Date Time Temp Pulse Resp B/P (MAP) Pulse Ox O2 Delivery O2 Flow Rate FiO2 03/31/22 07:33 95 Room Air 03/31/22 05:47 93/54 (67) 03/31/22 04:00 37.6 78 18 96/52 (67) 94 Room Air 03/31/22 03:20 78 18 88/48 (61) 94 Room Air 03/31/22 01:00 76 03/31/22 00:00 38.0 76 18 99/53 (68) 94 Room Air 03/30/22 20:19 95 Room Air 03/30/22 19:40 37.5 89 20 101/66 (78) 95 Room Air 03/30/22 19:00 78 03/30/22 17:11 84 03/30/22 15:30 96 Room Air 03/30/22 15:30 37.4 86 18 135/61 (85) 96 Room Air 03/30/22 15:06 80 14 85/66 98 Room Air 03/30/22 11:05 37.1 74 14 83/53 (63) 94 Room Air I & O 03/31/22 07:00 Intake Total 3790 ml Output Total 550 ml Balance 3240 ml General Appearance: No Apparent Distress, WD/WN Eyes: Bilateral Eye Normal Inspection, Bilateral Eye PERRL, Bilateral Eye EOMI HEENT: PERRL/EOMI; No Photophobia Neck: Full Range of Motion, Non Tender, Supple Respiratory: Chest Non Tender, Lungs Clear, Normal Breath Sounds, No Accessory Muscle Use, No Respiratory Distress Cardiovascular: Regular Rate, Rhythm, Normal Peripheral Pulses Gastrointestinal: Normal Bowel Sounds, No Organomegaly, No Pulsatile Mass, Non Tender, Soft Rectal: Deferred Back: Normal Inspection, No CVA Tenderness, No Vertebral Tenderness Extremity: Normal Capillary Refill, Normal Range of Motion, Non Tender, No Calf Tenderness, No Pedal Edema Neurologic/Psychiatric: Alert, Oriented x3, No Motor/Sensory Deficits, Normal Mood/Affect Skin: Normal Color, Warm/Dry Lymphatic: No Adenopathy Results Lab Laboratory Tests 03/30/22 11:20: White Blood Count 15.9H, Red Blood Count 4.36, Hemoglobin 14.2, Hematocrit 42, Mean Corpuscular Volume 96, Mean Corpuscular Hemoglobin 33, Mean Corpuscular Hemoglobin Concent 34, Red Cell Distribution Width 13.1, Platelet Count 312, Mean Platelet Volume 9.6, Immature Granulocyte % (Auto) 1, Neutrophils (%) (Auto) 98H, Lymphocytes (%) (Auto) 1L, Monocytes (%) (Auto) 0, Eosinophils (%) (Auto) 0, Basophils (%) (Auto) 0, Neutrophils # (Auto) 15.5H, Lymphocytes # (Auto) 0.1L, Monocytes # (Auto) 0.1, Eosinophils # (Auto) 0.0, Basophils # (Auto) 0.0, Immature Granulocyte # (Auto) 0.2H, Neutrophils % (Manual) 89, Lymphocytes % (Manual) 1, Monocytes % (Manual) 2, Eosinophils % (Manual) 0, Basophils % (Manual) 0, Band Neutrophils 8, Blood Morphology Comment NORMAL, Prothrombin Time 14.1, INR Comment 1.1, Activated Partial Thromboplast Time 28, Sodium Level 141, Potassium Level 4.7, Chloride Level 103, Carbon Dioxide Level 23, Anion Gap 15H, Blood Urea Nitrogen 18, Creatinine 0.99, Estimat Glomerular Filtration Rate 56, BUN/Creatinine Ratio 18, Glucose Level 89, Calcium Level 9.8, Corrected Calcium 10.1, Magnesium Level 1.7, Total Bilirubin 1.1H, Aspartate Amino Transf (AST/SGOT) 31, Alanine Aminotransferase (ALT/SGPT) 21, Alkaline Phosphatase 118, Troponin I < 0.028, C-Reactive Protein High Sensitivity 0.84H, Total Protein 6.5, Albumin 3.6 03/30/22 12:28: Lactic Acid Level 1.40 03/30/22 13:17: Urine Color YELLOW, Urine Clarity CLEAR, Urine pH 6.0, Urine Specific [place] 1.025H, Urine Protein TRACEH, Urine Glucose (UA) NEGATIVE, Urine Ketones NEGATIVE, Urine Nitrite NEGATIVE, Urine Bilirubin NEGATIVE, Urine Urobilinogen 0.2, Urine Leukocyte Esterase NEGATIVE, Urine RBC (Auto) NEGATIVE, Urine RBC RARE, Urine WBC 0-2, Urine Squamous Epithelial Cells 0-2, Urine Crystals NONE, Urine Bacteria TRACE, Urine Casts NONE, Urine Mucus NEGATIVE, Urine Culture Indicated NO 03/31/22 06:25: White Blood Count 12.8H, Red Blood Count 3.39L, Hemoglobin 10.9#L, Hematocrit 33L, Mean Corpuscular Volume 96, Mean Corpuscular Hemoglobin 32, Mean Corpuscular Hemoglobin Concent 34, Red Cell Distribution Width 13.2, Platelet Count 235, Mean Platelet Volume 10.0, Immature Granulocyte % (Auto) 0, Neutrophils (%) (Auto) 88H, Lymphocytes (%) (Auto) 4L, Monocytes (%) (Auto) 7, Eosinophils (%) (Auto) 0, Basophils (%) (Auto) 0, Neutrophils # (Auto) 11.3H, Lymphocytes # (Auto) 0.5L, Monocytes # (Auto) 0.9, Eosinophils # (Auto) 0.0, Basophils # (Auto) 0.0, Immature Granulocyte # (Auto) 0.1, Sodium Level 137, Potassium Level 4.0, Chloride Level 109H, Carbon Dioxide Level 18L, Anion Gap 10, Blood Urea Nitrogen 19H, Creatinine 0.75, Estimat Glomerular Filtration Rate 77, BUN/Creatinine Ratio 25, Glucose Level 86, Calcium Level 8.1L Assessment/Plan Assessment/Plan Assessment and Plan Dyspnea - improved - no change in management at this time - CXR yesterday showed, according to radiology, development of some mild infiltrate or atelectasis in the right base. - awaiting CXR this morning Hypotension with Fatigue - hold home meds at this time. - getting NS at 125mL/hr Leukocytosis - improved this AM at 12.8, down from 15.9 yesterday Weakness - will start therapy today Nausea - resolved Recent Covid Infection - fatigue and weakness - discussed with pt and family about the fact that this is going to be a prolonged process of recovery. Recurrent Urinary tract infections - monitor urine Dementia - monitor closely for delirium in hospital dvt prophylaxis with scd's and lovenox gi prophylaxis with ppi Supervisory-Addendum Brief Verification & Attestation Participated in pt care: history, MDM, physical Personally performed: exam, history, MDM, supervision of care Care discussed with: Medical Student Procedures: n/a Results interpretation: Verified all documentation agree with excellent student note pt's fluids were decreased, narayan removed, therapy initiated chest xray negative for pneumonia pt confused has dementia and is delirious due to being out of her usual home environment -supportive care at this time. pt will need therapy on discharge ILANA MATTA Mar 31, 2022 07:51 TERESA ALAMO MD Mar 31, 2022 21:16
--- NOTE | 2022-03-31 09:29 | Diagnostic Imaging Report ---
Indication: Pulmonary infiltrates and cough. Time of Exam: 9:10 AM Correlation is made with prior chest from 07/10/2019. The heart size is stable. There are surgical clips in the left hilum. No significant infiltrate is identified. No pleural effusion or pneumothorax is detected. IMPRESSION: No acute cardiopulmonary process is detected. Dictated by: Dictated on workstation # [id number]
--- NOTE | 2022-03-31 11:44 | Physical Therapy Evaluation ---
PT Evaluation-General Medical Diagnosis Admission Date Mar 30, 2022 at 13:50 Medical Diagnosis: hypotension Onset Date: Mar 30, 2022 Therapy Diagnosis Therapy Diagnosis: debility/weakness Height/Weight Height (Feet): 5 Height (Inches): 6.00 Weight (Pounds): 190 Precautions Precautions/Isolations: Fall Prevention, Standard Precautions Referral Physician: Regino Reason for Referral: Evaluation/Treatment Medical History Pertinent Medical History: Arthritis, Dementia, HTN Current History ER secondary to chills/N&V (post covid x 3 weeks) Reviewed History: Yes Social History Home: Single Level Current Living Status: Spouse Entry Into Home: Stairs With Railing PT Steps Into Home: 5 Prior Prior Level of Function SCALE: Activities may be completed with or without assistive devices. 3-Pkxhdwnyfe-gzezlpz completes the activity by him/herself with no assistance from a helper. 5-Set-up or Clean-up Assistance-helper sets up or cleans up; patient completes activity. [place] assists only prior to or following the activity. 4-Supervision or Touching Assistance-helper provides verbal cues and/or touching/steadying and/or contact guard assistance as patient completes activity. Assistance may be provided throughout the activity or intermittently. 3-Partial/Moderate Assistance-helper does LESS THAN HALF the effort. [place] lifts, holds or supports trunk or limbs, but provides less than half the effort. 2-Substantial/Maximal Assistance-helper does MORE THAN HALF the effort. [place] lifts or holds trunk or limbs and provides more than half the effort. 8-Nbowoxtft-stcyjh does ALL the effort. Patient does none of the effort to complete the activity. Or, the assistance of 2 or more helpers is required for the patient to complete the activity. If activity was not attempted, code reason: 7-Patient Refused. 9-Not Applicable-not attempted and the patient did not perform the activity before the current illness, exacerbation or injury. 10-Not Attempted due to Environmental Limitations-(lack of equipment, weather restraints, etc.). 88-Not Attempted due to Medical Conditions or Safety Concerns. Bed Mobility: 6 Transfers (B,C,W/C): 6 Gait: 6 Stairs: 6 Indoor Mobility (Ambulation): Independent Stairs: Independent Prior Devices Use: None PT Evaluation-Current Subjective Patient agrees to PT. Family present Objective Patient Orientation: Person, Time, Situation ROM/Strength ROM Lower Extremities bilateral LE WFL Strength Lower Extremities 4-/5 grossly bilateral LE Integumentary/Posture Bowel Incontinence: No Bladder Incontinence: [place] Cath Posture WFL Neuromuscular (Tone, Coordination, Reflexes) grossly intact Sensory Vision: Functional Hearing: Impaired Transfers Sit to Stand (QC): 6 Chair/Kpa-zy-Ljpdk Xfer(QC): 6 Gait Mode of Locomotion: Walk Anticipated Mode of Locomotion: Walk Walk 10 feet (QC): 6 Walk 50 ft with 2 Turns(QC): 6 Walk 150 ft (QC): 6 Distance: 500' Gait Assistive Device: None Comments/Gait Description safe and functional with no deviation Balance Sitting Static: Normal Sitting Dynamic: Normal Standing Static: Good Standing Dynamic: Good Assessment/Needs 87 y.o. female, is currently at [facility] with all gross motor skills and does not require skilled PT intervention at this time. Rehab Potential: Fair PT Plan Treatment/Plan Treatment Plan: Discontinue PT, goals met Treatment Duration: Mar 31, 2022 Frequency: 1 time per week Estimated Hrs Per Day: .25 hour per day Patient and/or Family Agrees t: Yes Time/GCodes Time In: 1100 Time Out: 1112 Total Billed Treatment Time: 12 Total Billed Treatment 1 visit EVModC 12 min BRIANNE HAINES PT Mar 31, 2022 11:44
[2022-03-31] MEDS ORDERED: FERR142T14 PO (15:22)
[2022-03-31] MEDS ORDERED: POTA10TA37 PO (15:22)
[2022-03-31] MEDS ORDERED: CETI10TA17 PO (15:22)
[2022-03-31] MEDS ORDERED: METO-333 PO (15:22)
[2022-03-31] MEDS ORDERED: CRAN500T PO (15:22)
[2022-03-31] MEDS ORDERED: MELA3TAB39 PO (15:22)
[2022-03-31] MEDS ORDERED: CEFD300C3 PO (15:22)
[2022-03-31] MEDS ORDERED: SPIR25TA5 PO (15:22)
[2022-03-31] MEDS ORDERED: ASPI-1238 PO (15:22)
[2022-03-31] MEDS ORDERED: L.AC1CAP6 PO (15:22)
[2022-03-31] MEDS ORDERED: MULT-567 PO (15:22)
[2022-03-31] MEDS ORDERED: ACET-2840 PO (15:22)
[2022-03-31] MEDS ORDERED: DICL20GE TOP (15:22)
[2022-03-31] MEDS ORDERED: GABA300C PO (15:22)
[2022-03-31] MEDS: ENOXAPARIN 40 MG/0.4 ML (LOVENOX) SYR SC SCH (20:36)
[2022-03-31] MEDS ORDERED: MELATONIN 3 MG TABLET PO SCH (21:00)
[2022-03-31] MEDS: LORazepam 0.5 MG (ATIVAN) TABLET PO ONE (22:32)
[2022-03-31] MEDS ORDERED: LORazepam 0.5 MG (ATIVAN) TABLET ONE ×2 (22:32→22:36)
[2022-03-31] MEDS ORDERED: HALOPERIDOL 5 MG/ML (HALDOL) VIAL IV ONE (22:45)
[2022-03-31] MEDS ORDERED: HALOPERIDOL 5 MG/ML (HALDOL) VIAL ONE (22:46)
[2022-04-01] VITALS: BP 107/56
[2022-04-01] MEDS: LORazepam 0.5 MG (ATIVAN) TABLET PO ONE (00:16)
[2022-04-01 04:27] VITALS: BP 135/63
[2022-04-01 05:20] LABS: HEMATOCRIT 32 % (35-52); HEMOGLOBIN 10.7 g/dL (11.5-16.0); MEAN CORPUSCULAR HEMOGLOBIN 32 pg (25-34); MEAN CORPUSCULAR HGB CONC 34 g/dL (32-36); MEAN CORPUSCULAR VOLUME 95 fL (80-99); MEAN PLATELET VOLUME 10.1 fL (9.0-12.2); PLATELET COUNT 231 10^3/uL (130-400); WHITE BLOOD COUNT 6.6 10^3/uL (4.3-11.0)
--- NOTE | 2022-04-01 06:56 | Discharge Summary ---
Diagnosis/Chief Complaint Date of Admission Mar 30, 2022 at 13:50 Date of Discharge Admission Diagnosis Admission Diagnosis Dyspnea Hypotension Fatigue Leukocytosis Weakness Nausea Recent Covid Infection Recurrent Urinary tract infections Dementia Discharge Diagnosis Dyspnea Hypotension Fatigue Leukocytosis (improved) Weakness Nausea Recent Covid Infection Recurrent Urinary tract infections Dementia Reason Hospital Visit Pt is an 87 y/o female who is known to me from clinic. Alyson had covid about 2 months ago and she notes that she has been intermittently fatigued and had urinary tract infection recently which was treated and pt was better for a short time before succumbing to illness again. She has not had much of a cough or congestion, just feeling progressively weak/fatigued. Discharge Summary Hospital Course Hospital Course Dyspnea - improved - no change in management at this time - CXR on 03/30 showed, according to radiology, development of some mild infiltrate or atelectasis in the right base. -CXR on 03/31 showed, according to radiology, No acute cardiopulmonary process is detected. Hypotension with Fatigue - hold home meds at this time. - she did receive a 1L NS bolus on admission, then was on 125mL/hr on her first day here - decreased to 75mL/hr yesterday and she now is no longer receiving any fluids Leukocytosis - improved this AM at 6.6, was 12.8 on 03/31, 15.9 on 03/30 Weakness - PT done yesterday were she hit all goals according to documentation Nausea - resolved Recent Covid Infection - fatigue and weakness - discussed with pt and family about the fact that this is going to be a prolonged process of recovery. Recurrent Urinary tract infections - monitor urine Dementia - monitored closely for delirium in hospital - had episode of delirium last night where she tried to leave, does not remember that event - still slightly delirious this AM, make sure that has resolved before discharge dvt prophylaxis with scd's and lovenox gi prophylaxis with ppi Labs Laboratory Tests 03/30/22 11:20: White Blood Count 15.9H, Neutrophils (%) (Auto) 98H, Lymphocytes (%) (Auto) 1L, Neutrophils # (Auto) 15.5H, Lymphocytes # (Auto) 0.1L, Immature Granulocyte # (Auto) 0.2H, Anion Gap 15H, Total Bilirubin 1.1H, C-Reactive Protein High Sensitivity 0.84H 03/30/22 12:28: 03/30/22 13:17: Urine Specific [place] 1.025H, Urine Protein TRACEH 03/31/22 06:25: White Blood Count 12.8H, Neutrophils (%) (Auto) 88H, Lymphocytes (%) (Auto) 4L, Neutrophils # (Auto) 11.3H, Lymphocytes # (Auto) 0.5L, Red Blood Count 3.39L, Hemoglobin 10.9#L, Hematocrit 33L, Chloride Level 109H, Carbon Dioxide Level 18L , Blood Urea Nitrogen 19H, Calcium Level 8.1L 04/01/22 05:05: Red Blood Count 3.31L, Hemoglobin 10.7L, Hematocrit 32L Procedures None. Discharge Physical Examination Allergies: Coded Allergies: Penicillins (Verified Allergy, Unknown, 07/10/19) Uncoded Allergies: NOVACAINE (Allergy, Mild, 09/07/09) red meat (Allergy, Mild, Vomiting, 04/18/20) Vitals & I&Os Vital Signs Date Time Temp Pulse Resp B/P (MAP) Pulse Ox O2 Delivery O2 Flow Rate FiO2 04/01/22 04:27 36.8 74 18 135/63 (87) 95 Room Air General Appearance: Alert HEENT: PERRLA, EOMI Cardiovascular: Regular Rate, No Murmurs Abdominal: Normal Bowel Sounds, Soft, No Tenderness Extremities: No Edema, Normal Pulses Neuro: Normal Speech, Normal Tone Psych/Mental Status: Mental Status NL, Mood NL Discharge Home Medications Reviewed and agree with Discharge Medication list on patient's Discharge Instruc tion sheet Instructions to Patient/Family Please see electronic discharge instructions given to patient. ILANA MATTA Apr 01, 2022 06:56
[2022-04-01] MEDS ORDERED: METO-333 PO (07:24)
--- NOTE | 2022-04-01 07:27 | Discharge Inst-Simple/Standard ---
Discharge Inst-Standard Reconcile Patient Problems Problems Reviewed?: Yes Patient Instructions/Follow Up Plan of Care/Instructions/FU: we changed the blood pressure medication for zoraida - we are holding her metoprolol for now and only giving it if her blood pressure becomes consistently elevated. 1 wk with [facility] keep appt next monday with the specialist for the scope eval Activity as Tolerated: Yes Discharge Diet: Regular Diet Health Concerns: weight loss due to poor appetite low blood pressure memory loss weakness post-covid symptoms Return to The Hospital For: any concern for worsening illness, confusion or other lifethreatening illness or injury Medication List: Active Scripts Active Metoprolol Tartrate 25 Mg Tablet 12.5 Mg PO BID TAKE 1/2 OF A 25MG TAB if systolic blood pressure (top number) is at or above 160 this is an update to the instructions for the metoprolol - this was changed since Zoraida's blood pressure has been low which may be making her feel dizzy and "bad" Reported Voltaren Arthritis Pain (Diclofenac Sodium) 1 % Gel..gram. 1 Applic TOP QID APPLY TO BACK Probiotic (L.acidoph & Paracasei,B.lactis) 10 Billion Cell Capsule 1 Each PO DAILY Melatonin 3 Mg Tablet 3 Mg PO HS Cranberry (Cranberry Fruit) 500 Mg Tab.chew 500 Mg PO DAILY Multivitamins (Multivitamin) 1 Each Tablet 1 Each PO DAILY Tylenol 8 Hour (Acetaminophen) 650 Mg Tablet.er 1,300 Mg PO HS Cetirizine HCl 10 Mg Tablet 10 Mg PO DAILY PRN Aspirin EC (Aspirin) 81 Mg Tablet.dr 81 Mg PO Q48H ALTERNATES IRON AND ASPIRIN Slow Fe (Ferrous Sulfate) 142 Mg (45 Mg Iron) Tablet.er 142 Mg PO Q48H [employer] ASPIRIN Spironolactone 25 Mg Tablet 25 Mg PO DAILY Cefdinir 300 Mg Capsule 300 Mg PO BID FILLED 03-29-2022 #20/10 DAY SUPPLY Potassium Chloride 10 Meq Tab.er.prt 10 Meq PO BID Neurontin (Gabapentin) 300 Mg Capsule 300 Mg PO HS Turmeric 500 mg Capsule (Turmeric/Turmeric Root Extract) 1 Each Capsule 1 Each PO DAILY Vitamin D3 (Cholecalciferol (Vitamin D3)) 25 Mcg Tablet 25 Mcg PO DAILY Lab results: Laboratory Tests Test 04/01/22 05:05 Range/Units White Blood Count 6.6 4.3-11.0 10^3/uL Red Blood Count 3.31 L 3.80-5.11 10^6/uL Hemoglobin 10.7 L 11.5-16.0 g/dL Hematocrit 32 L 35-52 % Mean Corpuscular Volume 95 80-99 fL Mean Corpuscular Hemoglobin 32 25-34 pg Mean Corpuscular Hemoglobin Concent 34 32-36 g/dL Red Cell Distribution Width 13.1 10.0-14.5 % Platelet Count 231 130-400 10^3/uL Mean Platelet Volume 10.1 9.0-12.2 fL My orders: Orders - TERESA ALAMO MD Cbc No Diff (04/01/22 05:00) Catheter(Urinary) Discontinue (03/31/22 08:45) General/Regular (03/31/22 Breakfast) Patient Visit (03/31/22 ) Pt Eval Moderate Complexity (03/31/22 ) Melatonin Tablet (Melatonin Tablet) (03/31/22 21:00) Transfer - Bed/Room/Location (03/31/22 19:32) Lorazepam Tablet (Ativan Tablet) (03/31/22 22:30) Lorazepam Tablet (Ativan Tablet) (03/31/22 22:32) Lorazepam Tablet (Ativan Tablet) (03/31/22 22:36) Haloperidol Injection (Haldol Injectio (03/31/22 22:45) Haloperidol Injection (Haldol Injectio (03/31/22 22:46) Attending Discharge Inpt/Inobs (04/01/22 07:20) TERESA ALAMO MD Apr 01, 2022 07:27
[2022-04-01 07:47] VITALS: BP 129/64
[2022-04-01 09:46] VITALS: BP 129/64
== END 2022-04-01 07:20 | disposition home or self-care (01) ==
LOC: EDUNIT# 10:56 → ER 10:58 → UNDOADMOB 13:50 → 4TH 13:50 → UNDODISOB 04-01 09:47
PROVIDERS: ADMIT Family Medicine; ATTEND Family Medicine
DX: R06.00 Dyspnea, unspecified (principal); I95.9 Hypotension, unspecified; R53.83 Other fatigue; D72.829 Elevated white blood cell count, unspecified; R53.1 Weakness; R11.0 Nausea; N39.0 Urinary tract infection, site not specified; F03.90 Unspecified dementia, unspecified severity, without behavioral disturbance, psychotic disturbance, mood disturbance, and anxiety
CPT/HCPCS: 36415; 51702; 71045; 71046; 80048; 80053; 81000; 83605; 83735; 84484; 85007; 85025; 85027; 85610; 85730; 86141; 87040; 93005; 96361; 96372; 96375; G0378

== ENCOUNTER → 2022-04-12 | Outpatient (CLI) | payer OTHER, MEDICARE ==
[~2022-04-12] MED LIST changes: +ACET-2840 PO; +ASPI-1238 PO; +CETI10TA17 PO; +CRAN500T PO; +DICL20GE TOP; +FERR142T14 PO; +GABA300C PO; +L.AC1CAP6 PO; +MELA3TAB39 PO; +MULT-567 PO; +POTA10TA37 PO; +SPIR25TA5 PO
[2022-04-12 21:50] LABS: ABSOLUTE RETIC # 61 10e9/uL (24-90); BASOPHILS % (AUTO) 0 % (0-10); EOSINOPHILS # (AUTO) 0.2 10^3/uL (0.0-0.3); EOSINOPHILS % (AUTO) 2 % (0-10); HEMATOCRIT 36 % (35-52); HEMOGLOBIN 11.9 g/dL (11.5-16.0); LYMPHOCYTES # (AUTO) 0.8 10^3/uL (1.0-4.0); LYMPHOCYTES % (AUTO) 7 % (12-44); MEAN CORPUSCULAR HEMOGLOBIN 32 pg (25-34); MEAN CORPUSCULAR HGB CONC 33 g/dL (32-36); MEAN CORPUSCULAR VOLUME 97 fL (80-99); MEAN PLATELET VOLUME 10.6 fL (9.0-12.2); MONOCYTES # (AUTO) 1.1 10^3/uL (0.0-1.0); MONOCYTES % (AUTO) 9 % (0-12); NEUTROPHILS # (AUTO) 9.8 10^3/uL (1.8-7.8); NEUTROPHILS % (AUTO) 82 % (42-75); PLATELET COUNT 370 10^3/uL (130-400); RETICULOCYTE % 1.63 % (0.50-2.40)
[2022-04-12 21:51] LABS: BURR CELLS MODERATE; EOSINOPHILS % (MANUAL) 3 %; LYMPHOCYTES % (MANUAL) 3 %; MONOCYTES % (MANUAL) 8 %; NEUTROPHILS % (MANUAL) 86 %; POLYCHROMASIA SLIGHT; ROULEAUX SLIGHT
== END ==
LOC: GIR 13:28
PROVIDERS: ATTEND Nurse Practitioner Family
DX: Z01.89 Encounter for other specified special examinations (principal)
CPT/HCPCS: 85007; 85027; 85045; 85055